=== PATIENT | female | born 1945 | race African-American/Black ===

== ENCOUNTER 2020-10-08 08:23 | Outpatient (REF) | payer MEDICARE, SELFPAY ==
[2020-10-08 09:42] LABS: MANUAL DIFF FLAG NO
[2020-10-08 09:50] LABS: Basophils Percent Auto 0.2 % (0-2); Eosinophils Absolute Auto 0.1 X10*3/uL (0.0-0.4); Eosinophils Percent Auto 3.3 % (0-4); Hematocrit 39.8 % (37-47); Hemoglobin 12.7 g/dl (12.0-16.0); Imm Gran Abs Auto 0.01 X10*3/uL (0.00-0.03); Imm Gran Pct Auto 0.2 % (0.0-0.4); Lymphocytes Absolute Auto 1.9 X10*3/uL (1.2-4.9); Lymphocytes Percent Auto 45.5 % (20-40); Mean Corpuscular HGB Conc 31.9 g/dl (31.0-35.0); Mean Corpuscular Hemoglobin 27.4 pg (27.0-33.0); Mean Corpuscular Volume 85.8 fL (80-98); Mean Platelet Volume 11.1 fL (9.4-12.3); Monocytes Absolute Auto 0.5 X10*3/uL (0.1-1.2); Monocytes Percent Auto 10.8 % (2-11); Neutrophils Absolute Auto 1.7 X10*3/uL (2.0-8.3); Platelet Count 236 X10*3/uL (160-400); Red Blood Count 4.64 X10*6/uL (4.20-5.50); White Blood Count 4.2 X10*3/uL (4.8-10.8)
[2020-10-08 10:12] LABS: Alanine Aminotransferase 20 U/L (0-31); Alkaline Phosphatase 146 U/L (39-117); Anion Gap 11 (12-20); Aspartate Amino Transferase 24 U/L (5-31); Bilirubin Total 0.4 mg/dL (0.0-1.0); Blood Urea Nitrogen 20 mg/dL (9-16); Calcium 9.5 mg/dL (8.4-10.2); Carbon Dioxide 32 mmol/L (22-29); Chloride 105 mmol/L (96-108); Cholesterol 217 mg/dL; Estimated Glomerular Filt Rate > 60; Glucose Fasting 85 mg/dL (60-99); HDL Cholesterol 56 mg/dL; LDL Cholesterol Calculated 139 mg/dl; Potassium 3.9 mmol/L (3.3-5.1); Sodium 144 mmol/L (135-145); Total Protein 6.9 g/dL (6.5-8.0); Triglycerides 110 mg/dL
== END 2020-10-08 08:24 | disposition home or self-care (01) ==
LOC: HO.LAB 08:23
PROVIDERS: PCP Internal Medicine; Visit Provider Internal Medicine
DX: Z00.00 Encounter for general adult medical examination without abnormal findings (principal); E11.9 Type 2 diabetes mellitus without complications; E03.9 Hypothyroidism, unspecified
CPT/HCPCS: 36415; 80053; 80061; 84443; 85025

== ENCOUNTER 2020-11-18 11:03 | Outpatient (REF) | payer MEDICARE, SELFPAY ==
--- NOTE | ~2020-11-18 | MM_ITS ---
EXAMINATION: MM SCREENING DIGITAL BREAST TOMOSYNTHESIS, BILATERAL CLINICAL INFORMATION: Screening. Asymptomatic. The lifetime risk of breast cancer based on the Tyrer-Cuzick Model is under 3%. COMPARISON: Mammography: 11/04/2017, 10/31/2016, 07/31/2013 TECHNIQUE: Digital breast tomosynthesis is performed in both the craniocaudal and mediolateral oblique views along with computer-aided detection (CAD). Synthesized 2D images are generated from the tomosynthesis. FINDINGS: There are scattered areas of fibroglandular density (ACR BI-RADS breast composition Category b). There are no significant masses, abnormal calcifications, or other abnormalities. Parenchymal pattern is similar to prior studies. No significant changes. MM/MM tomosynthesis screening BI IMPRESSION: No mammographic evidence of malignancy. ASSESSMENT: BI-RADS 1: Negative RECOMMENDATION: Routine annual mammography screening. This patient's information was entered into a reminder system with a target due date for their next mammogram.
== END 2020-11-18 11:04 | disposition home or self-care (01) ==
LOC: HO.MAMMO 11:03
PROVIDERS: PCP Internal Medicine; Visit Provider Internal Medicine
DX: Z12.31 Encounter for screening mammogram for malignant neoplasm of breast (principal)
CPT/HCPCS: 77063; 77067

== ENCOUNTER 2021-07-14 08:27 | Outpatient (REF) | payer MEDICARE, SELFPAY ==
[2021-07-14 08:37] LABS: MANUAL DIFF FLAG NO
[2021-07-14 08:57] LABS: Basophils Percent Auto 0.2 % (0-2); Eosinophils Absolute Auto 0.1 X10*3/uL (0.0-0.4); Eosinophils Percent Auto 3.2 % (0-4); Hematocrit 41.5 % (37.0-47.0); Hemoglobin 13.1 g/dl (12.0-16.0); Imm Gran Abs Auto 0.01 X10*3/uL (0.00-0.03); Imm Gran Pct Auto 0.2 % (0.0-0.4); Lymphocytes Absolute Auto 1.8 X10*3/uL (1.2-4.9); Lymphocytes Percent Auto 43.7 % (20-40); Mean Corpuscular HGB Conc 31.6 g/dl (31.0-35.0); Mean Corpuscular Hemoglobin 27.2 pg (27.0-33.0); Mean Corpuscular Volume 86.3 fL (80.0-98.0); Mean Platelet Volume 9.6 fL (9.4-12.3); Monocytes Absolute Auto 0.4 X10*3/uL (0.1-1.2); Monocytes Percent Auto 9.2 % (2-11); Neutrophils Absolute Auto 1.8 x10*3/uL (2.0-8.3); Neutrophils Percent Auto 43.5 % (45-73); Platelet Count 253 X10*3/uL (160-400); Red Blood Count 4.81 X10*6/uL (4.20-5.50); Red Cell Distribution Width 14.2 % (11.0-16.0); White Blood Count 4.1 X10*3/uL (4.8-10.8)
[2021-07-14 09:15] LABS: Alanine Aminotransferase 22 U/L (0-31); Albumin Level 4.1 g/dL (3.5-5.0); Alkaline Phosphatase 161 U/L (39-117); Anion Gap 12 (12-20); Aspartate Amino Transferase 26 U/L (5-31); Bilirubin Total 0.5 mg/dL (0.0-1.0); Blood Urea Nitrogen 16 mg/dL (9-16); Calcium 9.9 mg/dL (8.4-10.2); Carbon Dioxide 32 mmol/L (22-29); Chloride 103 mmol/L (96-108); Cholesterol 225 mg/dL; Estimated Glomerular Filt Rate > 60; Glucose Fasting 95 mg/dL (60-99); HDL Cholesterol 53 mg/dL; LDL Cholesterol Calculated 147 mg/dl; Potassium 3.8 mmol/L (3.3-5.1); Sodium 143 mmol/L (135-145); Total Protein 7.4 g/dL (6.5-8.0); Triglycerides 127 mg/dL
[2021-07-14 09:36] LABS: Thyroid Stimulating Hormone 1.17 uIU/mL (0.32-4.0)
== END 2021-07-14 08:28 | disposition home or self-care (01) ==
LOC: HO.LAB 08:27
PROVIDERS: PCP Internal Medicine; Visit Provider Internal Medicine
DX: Z00.00 Encounter for general adult medical examination without abnormal findings (principal); Z13.0 Encounter for screening for diseases of the blood and blood-forming organs and certain disorders involving the immune mechanism; E78.5 Hyperlipidemia, unspecified
CPT/HCPCS: 36415; 80053; 80061; 84443; 85025

== ENCOUNTER 2021-08-03 14:05 | Outpatient (REF) | payer MEDICARE, SELFPAY ==
--- NOTE | ~2021-08-03 | XR_ITS ---
EXAMINATION: XR CHEST CLINICAL INFORMATION: Syncope and collapse. COMPARISON: None TECHNIQUE: 2 views of the chest were obtained. FINDINGS: The lungs are well-expanded and clear. The heart size is normal. There is slight prominence of parahilar markings but no congestion seen. There is no pleural effusion. Mild degenerative changes bilateral shoulder joints are noted with periarticular spurring but no acute fracture. XR/XR chest 2V IMPRESSION: No acute cardiopulmonary process seen. Mild degenerative changes in bilateral hip joints.
--- NOTE | 2021-08-03 14:40 | ECG_ITS ---
Test Reason : Z13.9 Blood Pressure : / mmHG Vent. Rate : 065 BPM Atrial Rate : 065 BPM P-R Int : 178 ms QRS Dur : 084 ms QT Int : 424 ms P-R-T Axes : 062 013 055 degrees QTc Int : 440 ms Normal sinus rhythm Possible Left atrial enlargement Left ventricular hypertrophy ( R in aVL , Sokolow-Iverson ) Nonspecific T wave abnormality Abnormal ECG When compared with ECG of 13-JAN-2009 22:47, No significant change was found Referred By: Nadir Pan Electronically Signed By:Pilo Jett
[2021-08-03 14:51] LABS: MANUAL DIFF FLAG NO
[2021-08-03 14:57] LABS: Basophils Percent Auto 0.1 % (0-2); Eosinophils Absolute Auto 0.1 X10*3/uL (0.0-0.4); Eosinophils Percent Auto 1.3 % (0-4); Hematocrit 39.6 % (37.0-47.0); Hemoglobin 12.5 g/dl (12.0-16.0); Imm Gran Abs Auto 0.02 X10*3/uL (0.00-0.03); Imm Gran Pct Auto 0.3 % (0.0-0.4); Lymphocytes Absolute Auto 2.1 X10*3/uL (1.2-4.9); Lymphocytes Percent Auto 31.1 % (20-40); Mean Corpuscular HGB Conc 31.6 g/dl (31.0-35.0); Mean Corpuscular Hemoglobin 27.5 pg (27.0-33.0); Mean Platelet Volume 9.8 fL (9.4-12.3); Monocytes Absolute Auto 0.5 X10*3/uL (0.1-1.2); Monocytes Percent Auto 6.9 % (2-11); Neutrophils Absolute Auto 4.1 x10*3/uL (2.0-8.3); Neutrophils Percent Auto 60.3 % (45-73); Platelet Count 225 X10*3/uL (160-400); Red Blood Count 4.55 X10*6/uL (4.20-5.50); Red Cell Distribution Width 14.4 % (11.0-16.0); White Blood Count 6.8 X10*3/uL (4.8-10.8)
[2021-08-03 15:23] LABS: Alanine Aminotransferase 24 U/L (0-31); Albumin Level 4.2 g/dL (3.5-5.0); Alkaline Phosphatase 147 U/L (39-117); Anion Gap 11 (12-20); Aspartate Amino Transferase 25 U/L (5-31); Bilirubin Total 0.3 mg/dL (0.0-1.0); Blood Urea Nitrogen 31 mg/dL (9-16); Calcium 9.2 mg/dL (8.4-10.2); Carbon Dioxide 31 mmol/L (22-29); Chloride 102 mmol/L (96-108); Cholesterol 222 mg/dL; Estimated Glomerular Filt Rate 42; Glucose Fasting 94 mg/dL (60-99); HDL Cholesterol 51 mg/dL; LDL Cholesterol Calculated 137 mg/dl; Potassium 4.2 mmol/L (3.3-5.1); Sodium 140 mmol/L (135-145); Total Protein 7.2 g/dL (6.5-8.0); Triglycerides 170 mg/dL
[2021-08-03 15:43] LABS: Thyroid Stimulating Hormone 0.72 uIU/mL (0.32-4.0)
== END 2021-08-03 14:06 | disposition home or self-care (01) ==
LOC: HO.XRAY 14:05
PROVIDERS: PCP Internal Medicine; Visit Provider Internal Medicine
DX: Z00.00 Encounter for general adult medical examination without abnormal findings (principal); Z13.9 Encounter for screening, unspecified; R55 Syncope and collapse; E11.9 Type 2 diabetes mellitus without complications; R94.31 Abnormal electrocardiogram [ECG] [EKG]
CPT/HCPCS: 36415; 71046; 80053; 80061; 84443; 85025; 93005

== ENCOUNTER 2021-11-22 08:38 | Outpatient (REF) | payer MEDICARE, SELFPAY ==
--- NOTE | ~2021-11-22 | MM_ITS ---
EXAMINATION: MM SCREENING DIGITAL BREAST TOMOSYNTHESIS, BILATERAL CLINICAL INFORMATION: Screening. Asymptomatic. The lifetime risk of breast cancer based on the Tyrer-Cuzick Model is 3%. COMPARISON: Mammography: 11/18/2020, 11/04/2017, 10/31/2016 TECHNIQUE: Digital breast tomosynthesis is performed in both the craniocaudal and mediolateral oblique views along with computer-aided detection (CAD). Synthesized 2D images are generated from the tomosynthesis. FINDINGS: There are scattered areas of fibroglandular density (ACR BI-RADS breast composition Category b). There are no significant masses, abnormal calcifications, or other abnormalities. Parenchymal pattern is similar to prior studies. There is no developing density or architectural abnormality. The axilla and skin contours are unremarkable. No significant changes. MM/MM tomosynthesis screening BI IMPRESSION: No mammographic evidence of malignancy. ASSESSMENT: BI-RADS 1: Negative RECOMMENDATION: Routine annual mammography screening. This patient's information was entered into a reminder system with a target due date for their next mammogram.
== END 2021-11-22 08:39 | disposition home or self-care (01) ==
LOC: HO.MAMMO 08:38
PROVIDERS: PCP Internal Medicine; Visit Provider Internal Medicine
DX: Z12.31 Encounter for screening mammogram for malignant neoplasm of breast (principal)
CPT/HCPCS: 77063; 77067

== ENCOUNTER 2021-12-27 09:00 | Outpatient (RCR) | payer MEDICARE, SELFPAY | END 2022-02-15 10:50 | disposition home or self-care (01) | LOC: HO.PT 09:00 | PROVIDERS: PCP Internal Medicine; Visit Provider Orthopaedic Surgery | DX: M16.11 Unilateral primary osteoarthritis, right hip (principal) | CPT/HCPCS: 97110; 97116; 97162 ==

== ENCOUNTER 2022-04-06 09:00 | Outpatient (RCR) | payer MEDICARE, SELFPAY | END 2022-04-06 10:11 | disposition home or self-care (01) | LOC: HO.PT 09:00 | PROVIDERS: PCP Internal Medicine; Visit Provider Orthopaedic Surgery | DX: Z96.651 Presence of right artificial knee joint (principal) | CPT/HCPCS: 97110; 97112; 97116; 97140; 97162; 97530; 97535 ==

== ENCOUNTER 2022-08-18 08:09 | Outpatient (REF) | payer MEDICARE, SELFPAY ==
[2022-08-18 08:28] LABS: MANUAL DIFF FLAG NO
[2022-08-18 08:35] LABS: Basophils Percent Auto 0.2 % (0-2); Eosinophils Absolute Auto 0.1 X10*3/uL (0.0-0.4); Eosinophils Percent Auto 2.7 % (0-4); Hematocrit 39.8 % (37.0-47.0); Hemoglobin 12.8 g/dl (12.0-16.0); Imm Gran Abs Auto 0.01 X10*3/uL (0.00-0.03); Imm Gran Pct Auto 0.2 % (0.0-0.4); Lymphocytes Absolute Auto 2.3 X10*3/uL (1.2-4.9); Lymphocytes Percent Auto 47.5 % (20-40); Mean Corpuscular HGB Conc 32.2 g/dl (31.0-35.0); Mean Corpuscular Hemoglobin 26.8 pg (27.0-33.0); Mean Corpuscular Volume 83.4 fL (80.0-98.0); Monocytes Absolute Auto 0.4 X10*3/uL (0.1-1.2); Monocytes Percent Auto 7.9 % (2-11); Neutrophils Percent Auto 41.5 % (45-73); Platelet Count 232 X10*3/uL (160-400); Red Blood Count 4.77 X10*6/uL (4.20-5.50); Red Cell Distribution Width 14.3 % (11.0-16.0); White Blood Count 4.8 X10*3/uL (4.8-10.8)
[2022-08-18 09:58] LABS: Alanine Aminotransferase 15 U/L (0-31); Albumin Level 3.9 g/dL (3.5-5.0); Alkaline Phosphatase 161 U/L (39-117); Anion Gap 14 (12-20); Aspartate Amino Transferase 22 U/L (5-31); Bilirubin Total 0.5 mg/dL (0.0-1.0); Blood Urea Nitrogen 16 mg/dL (9-16); Calcium 9.9 mg/dL (8.4-10.2); Carbon Dioxide 29 mmol/L (22-29); Chloride 104 mmol/L (96-108); Cholesterol 235 mg/dL; Estimated Glomerular Filt Rate > 60; Glucose Fasting 89 mg/dL (60-99); HDL Cholesterol 56 mg/dL; LDL Cholesterol Calculated 159 mg/dl; Potassium 3.7 mmol/L (3.3-5.1); Sodium 143 mmol/L (135-145); Total Protein 7.2 g/dL (6.5-8.0); Triglycerides 100 mg/dL
[2022-08-18 10:14] LABS: Thyroid Stimulating Hormone 1.26 uIU/mL (0.32-4.0)
== END 2022-08-18 08:10 | disposition home or self-care (01) ==
LOC: HO.LAB 08:09
PROVIDERS: PCP Internal Medicine; Visit Provider Internal Medicine
DX: E03.9 Hypothyroidism, unspecified (principal); D64.9 Anemia, unspecified; N28.9 Disorder of kidney and ureter, unspecified; E78.5 Hyperlipidemia, unspecified
CPT/HCPCS: 36415; 80053; 80061; 84443; 85025

== ENCOUNTER 2022-12-14 07:39 | Outpatient (REF) | payer MEDICARE, SELFPAY | END 2022-12-14 07:40 | disposition home or self-care (01) | LOC: HO.MAMMO 07:39 | PROVIDERS: PCP Internal Medicine; Visit Provider Internal Medicine | DX: Z12.31 Encounter for screening mammogram for malignant neoplasm of breast (principal) | CPT/HCPCS: 77063; 77067 ==

== ENCOUNTER → 2022-12-14 07:45 | Outpatient (BNV) | payer MEDICARE, SELFPAY | PROVIDERS: PCP Internal Medicine; Visit Provider Radiology Diagnostic Radiology | DX: Z12.31 Encounter for screening mammogram for malignant neoplasm of breast (principal) | CPT/HCPCS: 77063; 77067 ==

== ENCOUNTER 2022-12-14 08:24 | Outpatient (AMB) | payer MEDICARE, SELFPAY ==
--- NOTE | 2022-12-14 08:32 | A.OFFPC_ITS ---
Vital Signs 12/14/22 08:34 Height 5 ft 7 in Weight 223 lb 4 oz BMI 35.0 BP 130/80 Blood Pressure Location Lt brachial Position Sitting Pulse 53 Pulse Source Pulse Oximeter Pulse Oximetry (%) 98 Oxygen Delivery Method Room Air Intake Visit Reasons: 3mth f/u Intake Note: Patient is here to follow up on HTN. 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 Accompanied by: Self / Same As Patient Allergies No Known Allergies Allergy (Verified 12/14/22 08:33) Medication List - Last Reconciled 12/14/22 by Nadir Pan MD acetaminophen-codeine 300-30 mg 1 - 2 tabs PO Q8H PRN allopurinol 300 mg PO DAILY ciclopirox 0.77% 1 appl topical ONCE diltiazem HCl 180 mg PO DAILY hydrochlorothiazide 25 mg PO DAILY 90 days hydroxyzine pamoate 25 mg PO QID PRN lovastatin 40 mg PO DAILY Tobacco use date assessed: 12/14/22 Fall risk assessment: No Falls in past year Last assessed Fall Risk: 12/14/22 Dental Screening Dental Screen Date: 12/14/22 Did you have a dental visit in the last 12 months?: Yes Did you have a dental problem in the last 6 months where you did not have access to dental care?: No Was dental information given to patient?: Patient has dentist HPI 3mth f/u HPI Details HTN hyperlip and gout on rx; doing well; [facility] Medical History (Updated 08/26/22 @ 08:51 by Nadir Pan MD) Rash Hyperlipidemia Obesity Hypertension Annual physical exam Surgical History (Updated 12/14/22 @ 08:37 by ADRIAN Patino) History of right hip replacement History of arthroplasty of left hip History of rectal polypectomy History of arthroplasty of right knee History of hysterectomy History of appendectomy Family History Father No problems noted. Mother No problems noted. Social History Housing: House Alcohol intake: never Patient Tobacco Use Status: Never used Tobacco e-Cigarette/Vaping Use: Never Used Second Hand Smoke Exposure: No service: No Current occupational status: retired Cognitive needs: No Hearing needs: No Vision needs: No Questionnaire Thrive Questionnaire Date Thrive assessed: 05/27/22 ROS-7 AMB Questionnaire ROS-7 Date ROS - 7 assessed: 05/27/22 Source: Developed by Drs. jT Arias, Gabriella aFn, Ronni Santana and colleagues, with an educational ana from [employer]. Review of Systems Const Denies chills, Denies headache(s) and Denies weight loss ENT Denies headache(s) Card Denies chest pain, Denies syncope, Denies irregular heart rhythm and Denies dyspnea Resp Denies chest congestion, Denies cough and Denies dyspnea GI Denies abdominal pain, Denies change in stool character, Denies nausea and Denies vomiting Musc Denies deformity and Denies joint swelling Neuro Denies syncope and Denies headache(s) Physical exam (Primary Care) Vital Signs: Last Vital Signs Pulse 53 12/14/22 08:34 BP 130/80 12/14/22 08:34 Pulse Ox 98 12/14/22 08:34 Oxygen Delivery Method Room Air 12/14/22 08:34 BMI result Body Mass Index 35.0 Tobacco/Smoking Status: Tobacco use Status Tobacco use date assessed 12/14/22 12/14/22 08:38 Patient Tobacco Use Status Never used Tobacco 12/14/22 08:38 e-Cigarette/Vaping Use Never Used 12/14/22 08:38 Thrive Assessment: Date of Thrive Assessment Date Thrive assessed 05/27/22 12/14/22 08:38 Const General: cooperative, comfortable, no acute distress and alert Neck Neck: Yes no lymphadenopathy Thyroid: Thyroid normal Resp Effort & Inspection: normal respiratory effort Auscultation: clear to auscultation bilaterally Percussion: percussion normal Cardio Jugular venous distension: no JVD Palpation: normal PMI Rate: regular rate Rhythm: regular rhythm Heart sounds: S1 normal heart sound present and S2 normal heart sound present GI Inspection: Yes normal to inspection Palpation (GI): No hepatosplenomegaly present Skin General skin exam: no rashes or lesions noted Extrem General: Yes no clubbing, cyanosis or edema Assessment and Plan Assessment & Plan (1) Gout: Code(s): M10.9 - Gout, unspecified Plan: stable; same rx (2) Hyperlipidemia: Code(s): E78.5 - Hyperlipidemia, unspecified Plan: stable ;same rx (3) Hypertension: Code(s): I10 - Essential (primary) hypertension Plan: stable same rx Coding Level of Care Code Est Pt Level 4 (39449) Diagnoses Gout M10.9 Hyperlipidemia E78.5 Hypertension I10
[2022-12-14 08:34] VITALS: BP 130/80; PULSE 53; O2SAT 98; BMI 35.0
== END 2022-12-14 08:50 | disposition home or self-care (01) ==
PROVIDERS: PCP Internal Medicine; Visit Provider Internal Medicine
DX: M10.9 Gout, unspecified (principal); E78.5 Hyperlipidemia, unspecified; I10 Essential (primary) hypertension
CPT/HCPCS: 99214

== ENCOUNTER 2023-03-17 07:36 | Outpatient (REF) | payer MEDICARE, SELFPAY ==
[2023-03-17 08:52] LABS: Cholesterol 202 mg/dL (<200); HDL Cholesterol 53 mg/dL (>40); LDL Cholesterol Calculated 127 mg/dL (<100); Triglycerides 114 mg/dL (<150)
== END 2023-03-17 07:37 | disposition home or self-care (01) ==
LOC: HO.LAB 07:36
PROVIDERS: PCP Internal Medicine; Visit Provider Internal Medicine
DX: E78.5 Hyperlipidemia, unspecified (principal)
CPT/HCPCS: 36415; 80061

== ENCOUNTER 2023-03-20 08:17 | Outpatient (AMB) | payer MEDICARE, SELFPAY ==
[2023-03-20 08:35] VITALS: BP 138/60; PULSE 65; O2SAT 98; BMI 36.0
--- NOTE | 2023-03-20 08:35 | A.OFFPC_ITS ---
Vital Signs 03/20/23 08:35 Height 5 ft 7 in Weight 230 lb BMI 36.0 BP 138/60 Blood Pressure Location Lt brachial Position Sitting Pulse 65 Pulse Source Pulse Oximeter Pulse Oximetry (%) 98 Oxygen Delivery Method Room Air Intake Visit Reasons: 3mth f/u Allergies No Known Allergies Allergy (Verified 12/14/22 08:33) Tobacco use date assessed: 12/14/22 HPI 3mth f/u HPI Details HTN on Rx; doing well; compliant [facility] Medical History (Updated 08/26/22 @ 08:51 by Nadir Pan MD) Rash Hyperlipidemia Obesity Hypertension Annual physical exam Surgical History History of right hip replacement History of arthroplasty of left hip History of rectal polypectomy History of arthroplasty of right knee History of hysterectomy History of appendectomy Family History Father No problems noted. Mother No problems noted. Social History Housing: House Alcohol intake: never Patient Tobacco Use Status: Never used Tobacco e-Cigarette/Vaping Use: Never Used Second Hand Smoke Exposure: No service: No Current occupational status: retired Cognitive needs: No Hearing needs: No Vision needs: No Questionnaire PHQ-9 Over the last 2 weeks, how often have you been bothered by any of the following problems? 1. Little interest or pleasure in doing things: not at all 2. Feeling down, depressed, or hopeless: not at all 3. Trouble falling or staying asleep, or sleeping too much: not at all 4. Feeling tired or having little energy: not at all 5. Poor appetite or overeating: not at all 6. Feeling bad about yourself - or that you are a failure or have let yourself or your family down: not at all 7. Trouble concentrating on things, such as reading the newspaper or watching television: not at all 8. Moving or speaking so slowly that other people could have noticed. Or the opposite - being so fidgety or restless that you have been moving around a lot more than usual: not at all 9. Thoughts that you would be better off or of hurting yourself in some way: not at all Total score: 0 Depression Screening Interpretation: Negative Depression Screening Done: Yes 16414 - PHQ-9 Billing: Yes Source: Developed by Gabriella Clarke Kurt Kroenke and colleagues, with an educational ana from [employer]. Thrive Questionnaire Date Thrive assessed: 03/20/23 I am a: Patient What is your living situation today?: I have a steady place to live Within the past 12 months, did the food you bought not last and you didn't have the money to get more?: Never true Within the past 12 months, did you worry whether your food would run out before you got money to buy more?: Never true Do you have trouble paying for medicines?: No Do you have trouble getting transportation to medical appointments?: No Do you have trouble paying your heating and electricity bill?: No Do you have trouble taking care of your child, family member or friend?: No Do you have trouble with day-to-day activities such as bathing, preparing meals, shopping, managing finances, etc.?: No Are you currently unemployed and looking for a job?: No Are you interested in more education?: No Please select the resources that you would like help with: None THRIVE Score: 0 AUDIT C Alcohol Use Questionnaire (AUDIT-C) 1. How often do you have a drink containing alcohol?: Never Total Score: 0 Score Reviewed/Action Taken: Yes ROS-7 AMB Questionnaire ROS-7 Date ROS - 7 assessed: 03/20/23 Feeling nervous, anxious, or on edge: 0 = Not at all Not being able to stop or control worryin = Not at all Worrying too much about different things: 0 = Not at all Trouble relaxin = Not at all Being so restless that it is hard to sit still: 0 = Not at all Becoming easily annoyed or irritable: 0 = Not at all Feeling afraid as if something awful might happen: 0 = Not at all Total ROS-7 score (0-4 normal; 5-9 mild; 10-14 moderate; 15-21 severe): 0 Source: Developed by Gabriella Clarke Kurt Kroenke and colleagues, with an educational ana from [employer]. Review of Systems Const Denies chills, Denies headache(s) and Denies weight loss ENT Denies headache(s) Card Denies chest pain, Denies syncope, Denies irregular heart rhythm and Denies dyspnea Resp Denies chest congestion, Denies cough and Denies dyspnea GI Denies abdominal pain, Denies change in stool character, Denies nausea and Denies vomiting Musc Denies deformity and Denies joint swelling Neuro Denies syncope and Denies headache(s) Physical exam (Primary Care) Vital Signs: Last Vital Signs Pulse 65 03/20/23 08:35 BP 138/60 03/20/23 08:35 Pulse Ox 98 03/20/23 08:35 Oxygen Delivery Method Room Air 03/20/23 08:35 BMI result Body Mass Index 36.0 Tobacco/Smoking Status: Tobacco use Status Tobacco use date assessed 12/14/22 03/20/23 08:35 Patient Tobacco Use Status Never used Tobacco 03/20/23 08:35 e-Cigarette/Vaping Use Never Used 03/20/23 08:35 PHQ-9: PHQ-9 Score PHQ-9: Total score 0 03/20/23 08:41 Depression Screening Interpretation: Negative Thrive Assessment: Date of Thrive Assessment Date Thrive assessed 03/20/23 03/20/23 08:41 Const General: cooperative, comfortable, no acute distress and alert Neck Neck: Yes no lymphadenopathy Thyroid: Thyroid normal Resp Effort & Inspection: normal respiratory effort Auscultation: clear to auscultation bilaterally Percussion: percussion normal Cardio Jugular venous distension: no JVD Palpation: normal PMI Rate: regular rate Rhythm: regular rhythm Heart sounds: S1 normal heart sound present and S2 normal heart sound present GI Inspection: Yes normal to inspection Palpation (GI): No hepatosplenomegaly present Skin General skin exam: no rashes or lesions noted Extrem General: Yes no clubbing, cyanosis or edema Assessment and Plan Assessment & Plan (1) Hypertension: Code(s): I10 - Essential (primary) hypertension Plan: stable; same rx Coding Level of Care Code Est Pt Level 3 (63216) Diagnoses Hypertension I10
== END 2023-03-20 08:49 | disposition home or self-care (01) ==
PROVIDERS: PCP Internal Medicine; Visit Provider Internal Medicine
DX: I10 Essential (primary) hypertension (principal)
CPT/HCPCS: 99213

== ENCOUNTER 2023-06-21 08:44 | Outpatient (AMB) | payer MEDICARE, SELFPAY ==
[2023-06-21 08:48] VITALS: BP 136/72; PULSE 73; O2SAT 98; BMI 36.5
--- NOTE | 2023-06-21 08:48 | MHC.PC.OV ---
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: Not Required per policy Accompanied by: Self / Same As Patient Allergies No Known Allergies Allergy (Verified 06/21/23 08:48) Medication List - Last Reconciled 06/21/23 by Nadir Pan MD acetaminophen-codeine 300-30 mg 1 - 2 tabs PO Q8H PRN allopurinol 300 mg PO DAILY ciclopirox 0.77% 1 appl topical ONCE diltiazem HCl CD 180 mg PO DAILY hydrochlorothiazide 25 mg PO DAILY 90 days hydroxyzine pamoate 25 mg PO QID PRN lovastatin 40 mg PO DAILY Tobacco use date assessed: 06/21/23 Fall risk assessment: No Falls in past year Last assessed Fall Risk: 06/21/23 Dental Screening Dental Screen Date: 06/21/23 Did you have a dental visit in the last 12 months?: Yes Did you have a dental problem in the last 6 months where you did not have access to dental care?: No Was dental information given to patient?: Patient has dentist HPI 3mth f/u HPI Details HTN hyperlip and gout; stable on rx PFSH Medical History (Updated 08/26/22 @ 08:51 by Nadir Pan MD) Rash Hyperlipidemia Obesity Hypertension Annual physical exam Surgical History History of right hip replacement History of arthroplasty of left hip History of rectal polypectomy History of arthroplasty of right knee History of hysterectomy History of appendectomy Family History Father No problems noted. Mother No problems noted. Social History Housing: House Alcohol intake: never Patient Tobacco Use Status: Never used Tobacco e-Cigarette/Vaping Use: Never Used Second Hand Smoke Exposure: No service: No Current occupational status: retired Cognitive needs: No Hearing needs: No Vision needs: No Questionnaire Thrive Questionnaire Date Thrive assessed: 03/20/23 ROS-7 AMB Questionnaire ROS-7 Date ROS - 7 assessed: 03/20/23 Source: Developed by Drs. Tj Arias, Gabriella Fan, Ronni Santana and colleagues, with an educational ana from [employer]. Review of Systems Const Denies chills, Denies headache(s) and Denies weight loss ENT Denies headache(s) Card Denies chest pain, Denies syncope, Denies irregular heart rhythm and Denies dyspnea Resp Denies chest congestion, Denies cough and Denies dyspnea GI Denies abdominal pain, Denies change in stool character, Denies nausea and Denies vomiting Musc Denies deformity and Denies joint swelling Neuro Denies syncope and Denies headache(s) Physical exam (Primary Care) Vital Signs: Last Vital Signs Pulse 73 06/21/23 08:48 BP 136/72 06/21/23 08:48 Pulse Ox 98 06/21/23 08:48 Oxygen Delivery Method Room Air 06/21/23 08:48 BMI result Body Mass Index 36.5 Tobacco/Smoking Status: Tobacco use Status Tobacco use date assessed 06/21/23 06/21/23 08:49 Patient Tobacco Use Status Never used Tobacco 06/21/23 08:49 e-Cigarette/Vaping Use Never Used 06/21/23 08:49 Thrive Assessment: Date of Thrive Assessment Date Thrive assessed 03/20/23 06/21/23 08:49 Const General: cooperative, comfortable, no acute distress and alert Neck Neck: Yes no lymphadenopathy Thyroid: Thyroid normal Resp Effort & Inspection: normal respiratory effort Auscultation: clear to auscultation bilaterally Percussion: percussion normal Cardio Jugular venous distension: no JVD Palpation: normal PMI Rate: regular rate Rhythm: regular rhythm Heart sounds: S1 normal heart sound present and S2 normal heart sound present GI Inspection: Yes normal to inspection Palpation (GI): No hepatosplenomegaly present Skin General skin exam: no rashes or lesions noted Extrem General: Yes no clubbing, cyanosis or edema Assessment and Plan Assessment & Plan (1) Gout: Code(s): M10.9 - Gout, unspecified Plan: stable; same rx (2) Hyperlipidemia: Code(s): E78.5 - Hyperlipidemia, unspecified Plan: stable; sme rx (3) Hypertension: Code(s): I10 - Essential (primary) hypertension Plan: stable; same rx Orders: Orders Lipid Panel Today Z13.220 - Encounter for screening for lipoid disorders Thyroid Stimulating Hormone Today Z13.29 - Encounter for screening for other suspected endocrine disorder Medications: Refilled hydrochlorothiazide 25 mg PO DAILY 90 tabs 4RF 90 days Coding Level of Care Code Est Pt Level 4 (19316) Diagnoses Gout M10.9 Hyperlipidemia E78.5 Hypertension I10
== END 2023-06-21 09:16 | disposition home or self-care (01) ==
PROVIDERS: PCP Internal Medicine; Visit Provider Internal Medicine
DX: M10.9 Gout, unspecified (principal); E78.5 Hyperlipidemia, unspecified; I10 Essential (primary) hypertension
CPT/HCPCS: 99214

== ENCOUNTER 2023-09-22 14:07 | Outpatient (AMB) | payer MEDICARE, SELFPAY ==
--- NOTE | 2023-09-22 14:13 | A.OFFPC_ITS ---
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 Allergies No Known Allergies Allergy (Verified 09/22/23 14:13) Medication List - Last Reconciled 09/25/23 by Nadir Pan MD acetaminophen-codeine 300-30 mg 1 - 2 tabs PO Q8H PRN allopurinol 300 mg PO DAILY ciclopirox 0.77% 1 appl topical ONCE diltiazem HCl CD 180 mg PO DAILY hydrochlorothiazide 25 mg PO DAILY 90 days hydroxyzine pamoate 25 mg PO QID PRN lovastatin 40 mg PO DAILY Tobacco use date assessed: 06/21/23 Fall risk assessment: No Falls in past year Last assessed Fall Risk: 09/22/23 Dental Screening Dental Screen Date: 06/21/23 HPI 3 month f/u HPI Details HTN on Rx; doing well and compliant [facility] Medical History (Updated 08/26/22 @ 08:51 by Nadir Pan MD) Rash Hyperlipidemia Obesity Hypertension Annual physical exam Surgical History History of right hip replacement History of arthroplasty of left hip History of rectal polypectomy History of arthroplasty of right knee History of hysterectomy History of appendectomy Family History Father No problems noted. Mother No problems noted. Social History Housing: House Alcohol intake: never Patient Tobacco Use Status: Never used Tobacco e-Cigarette/Vaping Use: Never Used Second Hand Smoke Exposure: No service: No Current occupational status: retired Cognitive needs: No Hearing needs: No Vision needs: No Questionnaire Thrive Questionnaire Date Thrive assessed: 03/20/23 AUDIT C Alcohol Use Questionnaire (AUDIT-C) 1. How often do you have a drink containing alcohol?: Never 3. How often do you have six or more drinks on one occasion?: Never Total Score: 0 Score Reviewed/Action Taken: Yes ROS-7 AMB Questionnaire ROS-7 Date ROS - 7 assessed: 03/20/23 Source: Developed by Drs. Tj Arias, Gabriella Fan, Ronni Santana and colleagues, with an educational ana from [employer] Review of Systems Const Denies chills, Denies headache(s) and Denies weight loss ENT Denies headache(s) Card Denies chest pain, Denies syncope, Denies irregular heart rhythm and Denies dyspnea Resp Denies chest congestion, Denies cough and Denies dyspnea GI Denies abdominal pain, Denies change in stool character, Denies nausea and Denies vomiting Musc Denies deformity and Denies joint swelling Neuro Denies syncope and Denies headache(s) Physical exam (Primary Care) Vital Signs: Last Vital Signs Pulse 70 09/22/23 14:14 BP 132/68 09/22/23 14:14 Pulse Ox 98 09/22/23 14:14 Oxygen Delivery Method Room Air 09/22/23 14:14 BMI result Body Mass Index 37.0 Tobacco/Smoking Status: Tobacco use Status Tobacco use date assessed 06/21/23 09/22/23 14:18 Patient Tobacco Use Status Never used Tobacco 09/22/23 14:18 e-Cigarette/Vaping Use Never Used 09/22/23 14:18 Thrive Assessment: Date of Thrive Assessment Date Thrive assessed 03/20/23 09/22/23 14:18 Const General: cooperative, comfortable, no acute distress and alert Neck Neck: Yes no lymphadenopathy Thyroid: Thyroid normal Resp Effort & Inspection: normal respiratory effort Auscultation: clear to auscultation bilaterally Percussion: percussion normal Cardio Jugular venous distension: no JVD Palpation: normal PMI Rate: regular rate Rhythm: regular rhythm Heart sounds: S1 normal heart sound present and S2 normal heart sound present GI Inspection: Yes normal to inspection Palpation (GI): No hepatosplenomegaly present Skin General skin exam: no rashes or lesions noted Extrem General: Yes no clubbing, cyanosis or edema Assessment and Plan Assessment & Plan (1) Hypertension: Code(s): I10 - Essential (primary) hypertension Plan: stable; same rx Coding Level of Care Code Est Pt Level 3 (16917) Diagnoses Hypertension I10
[2023-09-22 14:14] VITALS: BP 132/68; PULSE 70; O2SAT 98; BMI 37.0
== END 2023-09-22 14:28 | disposition home or self-care (01) ==
PROVIDERS: PCP Internal Medicine; Visit Provider Internal Medicine
DX: I10 Essential (primary) hypertension (principal)
CPT/HCPCS: 99213

== ENCOUNTER 2023-12-20 06:33 | Outpatient (REF) | payer MEDICARE, SELFPAY ==
--- NOTE | ~2023-12-20 | MM_ITS ---
EXAMINATION: MM SCREENING DIGITAL BREAST TOMOSYNTHESIS, BILATERAL CLINICAL INFORMATION: Screening. Asymptomatic. COMPARISON: Mammography: Comparison is made with available priors TECHNIQUE: Digital breast mammography with tomosynthesis is performed in both the craniocaudal and mediolateral oblique views along with computer-aided detection (CAD). FINDINGS: There are scattered areas of fibroglandular density (ACR BI-RADS breast composition Category b). There are no significant masses, abnormal calcifications, or other abnormalities. MM/MM tomosynthesis screening BI IMPRESSION: No mammographic evidence of malignancy. ASSESSMENT: BI-RADS BI-RADS 1 - Negative RECOMMENDATION: Routine annual mammography screening. 1 year F/U This examination should not preclude the clinical evaluation of a suspicious palpable abnormality. This patient's information was entered into a reminder system with a target due date for their next mammogram. Electronically signed by: Josefina Butler DO 12/28/2023 08:17 AM [facility]
[2023-12-20 07:58] LABS: Cholesterol 208 mg/dL (<200); HDL Cholesterol 64 mg/dL (>40); LDL Cholesterol Calculated 130 mg/dL (<100); Triglycerides 70 mg/dL (<150)
[2023-12-20 08:15] LABS: Thyroid Stimulating Hormone 2.21 uIU/mL (0.32-4.0)
== END 2023-12-20 06:34 | disposition home or self-care (01) ==
LOC: HO.MAMMO 06:33
PROVIDERS: PCP Internal Medicine; Visit Provider Internal Medicine
DX: Z12.31 Encounter for screening mammogram for malignant neoplasm of breast (principal); Z13.29 Encounter for screening for other suspected endocrine disorder; Z13.220 Encounter for screening for lipoid disorders
CPT/HCPCS: 36415; 77063; 77067; 80061; 84443

== ENCOUNTER → 2023-12-20 07:45 | Outpatient (BNV) | payer MEDICARE, SELFPAY | PROVIDERS: PCP Internal Medicine; Visit Provider Internal Medicine | DX: Z12.31 Encounter for screening mammogram for malignant neoplasm of breast (principal) | CPT/HCPCS: 77063; 77067 ==

== ENCOUNTER 2023-12-27 08:56 | Outpatient (AMB) | payer MEDICARE, SELFPAY ==
--- NOTE | 2023-12-27 08:57 | MHC.PC.OV ---
Vital Signs 12/27/23 08:59 Height 5 ft 7 in Weight 229 lb 8 oz BMI 35.9 BP 136/74 Blood Pressure Location Lt brachial Position Sitting Pulse 74 Pulse Source Pulse Oximeter Pulse Oximetry (%) 97 Oxygen Delivery Method Room Air Intake Visit Reasons: Annual PE/ 3 mo f/u Intake Note: Patient is here today for a physical. Proposal Specialist Required: No Stave Cutting Supervisor: Not Required per policy Accompanied by: Self / Same As Patient Allergies No Known Allergies Allergy (Verified 12/27/23 08:59) Medication List - Last Reconciled 12/28/23 by Nadir Pan MD acetaminophen-codeine 300-30 mg 1 - 2 tabs PO Q8H PRN ciclopirox 0.77% 1 appl topical ONCE diltiazem HCl CD 180 mg PO DAILY hydrochlorothiazide 25 mg PO DAILY 90 days hydroxyzine pamoate 25 mg PO QID PRN lovastatin 40 mg PO DAILY Tobacco use date assessed: 12/27/23 Fall risk assessment: No Falls in past year Last assessed Fall Risk: 12/27/23 Dental Screening Dental Screen Date: 06/21/23 HPI Annual PE/ 3 mo f/u HPI Details hypertension and hyperlipidemia; compliant and doing well [facility] Medical History (Updated 08/26/22 @ 08:51 by Nadir Pan MD) Rash Hyperlipidemia Obesity Hypertension Annual physical exam Surgical History History of right hip replacement History of arthroplasty of left hip History of rectal polypectomy History of arthroplasty of right knee History of hysterectomy History of appendectomy Family History Father No problems noted. Mother No problems noted. Social History Housing: House Alcohol intake: never Patient Tobacco Use Status: Never used Tobacco e-Cigarette/Vaping Use: Never Used Second Hand Smoke Exposure: No service: No Current occupational status: retired Cognitive needs: No Hearing needs: No Vision needs: No Questionnaire PHQ-9 Over the last 2 weeks, how often have you been bothered by any of the following problems? 1. Little interest or pleasure in doing things: not at all 9. Thoughts that you would be better off or of hurting yourself in some way: not at all Source: Developed by Drs. Tj Arias, Gabriella Fan, Ronni Santana and colleagues, with an educational ana from [employer]. Thrive Questionnaire Date Thrive assessed: 12/25/23 I am a: Patient What is your living situation today?: I have a steady place to live Within the past 12 months, did the food you bought not last and you didn't have the money to get more?: Often true Within the past 12 months, did you worry whether your food would run out before you got money to buy more?: I choose not to answer this question Do you have trouble paying for medicines?: No Do you have trouble getting transportation to medical appointments?: No Do you have trouble paying your heating and electricity bill?: No Do you have trouble taking care of your child, family member or friend?: No Do you have trouble with day-to-day activities such as bathing, preparing meals, shopping, managing finances, etc.?: No Are you currently unemployed and looking for a job?: No Are you interested in more education?: No Please select the resources that you would like help with: None Currently or been in a relationship where the following occur: No concerns reported THRIVE Score: 1 AUDIT C Alcohol Use Questionnaire (AUDIT-C) 1. How often do you have a drink containing alcohol?: Monthly or less 2. How many drinks containing alcohol do you have on a typical day when you are drinking?: 1 or 2 3. How often do you have six or more drinks on one occasion?: Never Total Score: 1 ROS-7 AMB Questionnaire ROS-7 Date ROS - 7 assessed: 12/27/23 Feeling nervous, anxious, or on edge: 0 = Not at all Not being able to stop or control worryin = Not at all Worrying too much about different things: 0 = Not at all Trouble relaxin = Not at all Being so restless that it is hard to sit still: 0 = Not at all Becoming easily annoyed or irritable: 0 = Not at all Feeling afraid as if something awful might happen: 0 = Not at all Total ROS-7 score (0-4 normal; 5-9 mild; 10-14 moderate; 15-21 severe): 0 Source: Developed by Drs. Tj Arias, Gabriella Fan, Ronni Santana and colleagues, with an educational ana from [employer]. Review of Systems Const Denies chills, Denies fatigue, Denies headache(s) and Denies weight loss Eyes Denies change in vision, Denies diplopia and Denies eye pain ENT Denies vertigo, Denies dizziness, Denies headache(s) and Denies nasal discharge Card Denies chest pain, Denies rapid heart rate and Denies dyspnea on exertion Resp Denies chest congestion, Denies cough, Denies pain with cough and Denies dyspnea on exertion GI Denies abdominal pain, Denies hematochezia and Denies change in bowel habits Musc Denies myalgias, Denies arthralgias and Denies joint swelling Skin/Breast Denies lesions and Denies unusual bruising Neuro Denies vertigo, Denies dizziness, Denies headache(s) and Denies focal weakness Endo Denies fatigue Physical exam (Primary Care) Vital Signs: Last Vital Signs Pulse 74 12/27/23 08:59 BP 136/74 12/27/23 08:59 Pulse Ox 97 12/27/23 08:59 Oxygen Delivery Method Room Air 12/27/23 08:59 BMI result Body Mass Index 35.9 Tobacco/Smoking Status: Tobacco use Status Tobacco use date assessed 12/27/23 12/27/23 09:04 Patient Tobacco Use Status Never used Tobacco 12/27/23 09:04 e-Cigarette/Vaping Use Never Used 12/27/23 09:04 Thrive Assessment: Date of Thrive Assessment Date Thrive assessed 12/25/23 12/27/23 09:04 Currently or been in a relationship where the following occur: No concerns reported Const General: cooperative, healthy appearing and no acute distress Orientation/consciousness: oriented to person, oriented to place and oriented to time [facility] Head: Yes normal to inspection, Yes normocephalic and Yes atraumatic Mouth: Normal oral and palatal mucosa present and tongue normal Throat: Yes posterior oropharynx normal and Yes uvula midline Eyes General: appearance normal, both eyes and all related structures Neck Neck: Yes normal visual inspection, Yes full ROM and Yes no lymphadenopathy Thyroid: Thyroid normal Carotids: normal carotid upstroke Chest Chest palpation & inspection: normal inspection of the chest Resp Effort & Inspection: normal respiratory effort and able to speak in complete sentences Auscultation: clear to auscultation bilaterally Cardio Jugular venous distension: no JVD Palpation: normal PMI Rate: regular rate Rhythm: regular rhythm Heart sounds: S1 normal heart sound present and S2 normal heart sound present GI Inspection: Yes normal to inspection Palpation (GI): Soft to palpation and No hepatosplenomegaly present Auscultation: normal bowel sounds General: Yes no CVA tenderness Back/Spine/Pelvis Back: no CVA tenderness Skin General skin exam: no rashes or lesions noted Neuro General: oriented to person, oriented to place and oriented to time Extrem General: Yes normal to inspection and Yes full ROM Coding Level of Care Code Est Pt Prev Care >65y(00964) Diagnoses Annual physical exam Z00.00 Hyperlipidemia E78.5 Hypertension I10 Assessment & Plan Assessment & Plan (1) Annual physical exam: Code(s): Z00.00 - Encounter for general adult medical examination without abnormal findings Category: Medical Plan: stable; do labs (2) Hyperlipidemia: Code(s): E78.5 - Hyperlipidemia, unspecified Category: Medical Plan: stable; same rx (3) Hypertension: Code(s): I10 - Essential (primary) hypertension Category: Medical Plan: stable; same rx
[2023-12-27 08:59] VITALS: BP 136/74; PULSE 74; O2SAT 97; BMI 35.9
== END 2023-12-27 09:17 | disposition home or self-care (01) ==
LOC: HO.HMCH 08:56
PROVIDERS: PCP Internal Medicine; Visit Provider Internal Medicine
DX: Z00.00 Encounter for general adult medical examination without abnormal findings (principal); E78.5 Hyperlipidemia, unspecified; I10 Essential (primary) hypertension

== ENCOUNTER → 2023-12-27 08:56 | Outpatient (BNVA) | payer MEDICARE, SELFPAY | PROVIDERS: PCP Internal Medicine; Visit Provider Internal Medicine | DX: Z00.00 Encounter for general adult medical examination without abnormal findings (principal); E78.5 Hyperlipidemia, unspecified; I10 Essential (primary) hypertension | CPT/HCPCS: 99397 ==

== ENCOUNTER 2024-04-11 07:57 | Outpatient (REF) | payer MEDICARE, SELFPAY ==
--- OUTSIDE RECORDS SUMMARY | 2024-04-11 08:00 | XMS_ITS | Patient Health Record ---
Author Organization [facility] Mary desia Yvan Address [address] [facility] [place] [address] Care Team Providers Care Inside Sales Engineer Name Role Phone Viviane MARK, Nadir Primary Care Provider UnavailRomeo Conroy Unavailable [phone] Thelma Oakley Unavailable [phone] Allergies Allergen (clinical drug ingredient) Drug/Non Drug Allergy documented on EMR Reaction Allergy Type Onset Date Status Blueberry Flavor hives Drug Allergy Active Reason For Referral No Information Medications Medication SIG (Take, Route, Frequency, Duration) Notes Start Date End Date Status Flonase PRN Active Eszopiclone 2 MG Orally Not -Taking hydroCHLOROthiazide 25 MG 1 tablet Orall y Once a day Active Acetaminophen-Codeine 300-30 MG 1 tablet as needed Orally every 6 hrs PRN Active ZyrTEC Allergy Not-T aking Diltiazem HCl CD Act anabel Butalbital-Acetaminophen Not-Taking Lovastatin 40 MG 1 tablet with a meal Orally Once a day Active Ammonium Lactate 12 % 1 application Externally Twice a day for 30 days Not-Taking traMADol HCl Not-Robert ing hydrOXYzine Pamoate 25 MG as directed Orally PRN Active amLODIPine Besylate 5 MG 1 tablet Orally Once a day Not-Taking Ciclopirox Olamine 0.77 % 1 application Externally Twice a day for 30 days Active Hydrocortisone 2.5 % as directed Externally Twice a day for 30 days Not-Taking zzzCompression Stockings 20-30mm Hg . . . for . Not-Taking Allopurinol 300 MG as directed Orally PRN Not-Taking Immunizations Vaccine Route Administration Date Status Comme nts COVID-19 Moderna Vaccine Unknown 11/26/2021 Administered 1st 04/26/20 2nd 05/19/20 3rd 01/11/21 Influenza Unknown 11/26/2021 Administered Social History Tobacco Use: Social History Observation Description Date Details (start date - stop date) Never Smoker NA - NA Tobacco Use/Smoking Question Answer Notes Are you a: nonsmoker Alcohol Screen Question Answer Notes Did you have a drink contain ing alcohol in the past year? Yes How often did you have a dri nk containing alcohol in the past year? Monthly or less (1 point) How often did you have 6 or more drinks on one occasion in the past year? Less than monthly (1 point) Points 2 Interpretation Negative Tobacco use other than smoking: Question Answer Notes Are you an other tobacco user? No Problems Problem Type SNOMED Code ICD Code Onset Dates Problem Status W/U Status Risk Notes Problem Atherosclerosis of kake arteries of the extremities ([id number]) Atherosclerosis of kake artery of both lower extremities, with unspecified presence of clinical manifestation (I70.203) Active confirmed Vital Signs Blood pressure diastolic 75 mm Hg 02/02/2024 Height 5ft 7in in 02/02/2024 Blood pressure systolic 130 mm Hg 02/02/2024 Weight 230 lbs 02/02/2024 BMI 36.02 kg/m2 02/02/2024 Procedures Procedure Date Ordered Date Performed Result Body Sit e 06888-NGQNRUZ NAIL, 6 OR MORE 04/18/2023 N/A 97097-Fazv Destruction, 1-14 04/18/2023 N/A 86147-Sebhaicp Plate 04/18/2023 N/A 57124-Tzgcsuih Plate Each Additional 04/18/2023 N/A 03301-RXKTTYZ NAIL, 6 OR MORE 06/23/2023 N/A 51305-Mhez Destruction, 1-14 06/23/2023 N/A 35838-Dgkywhgi Plate 06/23/2023 N/A 77134-Lhbbsxnf Plate Each Additional 06/23/2023 N/A 97726-HLRUDVE NAIL, 6 OR MORE 09/01/2023 N/A 94042-Cylasuhf Plate 09/01/2023 N/A 19326-Ylhdkhrf Plate Each Additional 09/01/2023 N/A 29484-QKRU SKIN LESIONS, OVER 4 09/01/2023 N/A 74043-SMKKIQO NAIL, 6 OR MORE 11/14/2023 N/A 41810-Gsezikcj Plate 11/14/2023 N/A 79800-Acqjvagi Plate Each Additional 11/14/2023 N/A 64805-UWAY SKIN LESIONS, OVER 4 11/14/2023 N/A 92791-TRRJLOD NAIL, 6 OR MORE 02/02/2024 N/A 18942-Kgspsrlk Plate 02/02/2024 N/A 03628-Wruufagi Plate Each Additional 02/02/2024 N/A 33825-FYAZ SKIN LESIONS, OVER 4 02/02/2024 N/A Encounters Encounter Location Date Provider Diagnosis [address] [address] 04/18/2023 Romeo Laird Tinea unguium B35.1 ; Pain in right toe(s) M79.674 ; Pain in left toe(s) M79.675 ; Ingrowing nail L60.0 ; Plantar wart B07.0 ; Pain in right foot M79.671 and Xerosis of skin L85.[address] [address] 06/23/2023 Romeo Laird Tinea unguium B35.1 ; Pain in right toe(s) M79.674 ; Pain in left toe(s) M79.675 ; Ingrowing nail L60.0 ; Plantar wart B07.0 and Pain in right foot M79.[address] [address] 09/01/2023 Romeo Laird Atherosclerosis of kake artery of both lower extremities, with unspecified presence of clinical manifestation I70.203 ; Tinea unguium B35.1 ; Pain in right toe(s) M79.674 ; Pain in left toe(s) M79.675 ; Ingrown nail L60.0 and Tinea pedis of both feet B35.[address] [address] 11/14/2023 Romeo Laird Atherosclerosis of kake artery of both lower extremities, with unspecified presence of clinical manifestation I70.203 ; Tinea unguium B35.1 ; Pain in right toe(s) M79.674 ; Pain in left toe(s) M79.675 ; Ingrown nail L60.0 and Tinea pedis of both feet B35.[address] [address] 02/02/2024 Romeo Laird Atherosclerosis of kake artery of both lower extremities, with unspecified presence of clinical manifestation I70.203 ; Tinea unguium B35.1 ; Pain in right toe(s) M79.674 ; Pain in left toe(s) M79.675 and Ingrown nail L60.[address] [address] 01/30/2024 Romeo Laird Assessments Encounter Date Diagnosis (ICD Code) Assessment Notes Treatment Notes Treatment Clinical Notes Section Notes 04/18/2023 Tinea unguium (ICD-10 - B35.1) 04/18/2023 Pain in right toe(s) (ICD-10 - M79.674) 06/23/2023 Tinea unguium (ICD-10 - B35.1) 06/23/2023 Pain in right toe(s) (ICD-10 - M79.674) 09/01/2023 Tinea unguium (ICD-10 - B35.1) 09/01/2023 Atherosclerosis of kake artery of both lower extremities, with unspecified presence of clinical manifestation (ICD-10 - I70.203) 11/14/2023 Tinea unguium (ICD-10 - B35.1) 11/14/2023 Atherosclerosis of kake artery of both lower extremities, with unspecified presence of clinical manifestation (ICD-10 - I70.203) 02/02/2024 Tinea unguium (ICD-10 - B35.1) 02/02/2024 Atherosclerosis of kake artery of both lower extremities, with unspecified presence of clinical manifestation (ICD-10 - I70.203) 02/02/2024 Pain in right toe(s) (ICD-10 - M79.674) 11/14/2023 Pain in right toe(s) (ICD-10 - M79.674) 09/01/2023 Pain in right toe(s) (ICD-10 - M79.674) 06/23/2023 Pain in left toe(s) (ICD-10 - M79.675) 04/18/2023 Pain in left toe(s) (ICD-10 - M79.675) 04/18/2023 Ingrowing nail (ICD-10 - L60.0) 06/23/2023 Ingrowing nail (ICD-10 - L60.0) 09/01/2023 Pain in left toe(s) (ICD-10 - M79.675) 11/14/2023 Pain in left toe(s) (ICD-10 - M79.675) 02/02/2024 Pain in left toe(s) (ICD-10 - M79.675) 02/02/2024 Ingrown nail (ICD-10 - L60.0) 06/23/2023 Plantar wart (ICD-10 - B07.0) 11/14/2023 Ingrown nail (ICD-10 - L60.0) 09/01/2023 Ingrown nail (ICD-10 - L60.0) 04/18/2023 Plantar wart (ICD-10 - B07.0) 04/18/2023 Pain in right foot (ICD-10 - M79.671) 06/23/2023 Pain in right foot (ICD-10 - M79.671) 11/14/2023 Tinea pedis of both feet (ICD-10 - B35.3) 09/01/2023 Tinea pedis of both feet (ICD-10 - B35.3) 04/18/2023 Xerosis of skin (ICD-10 - L85.3) Plan Of Treatment Pending Test Test Name Order Date 09380-JUFXEED NAIL, 6 OR MORE 05/08/2015 72098-RZNECHJ NAIL, 6 OR MORE 08/14/2015 10751-UQDZJKO NAIL, 6 OR MORE 11/13/2015 53103-WNCEWHP NAIL, 6 OR MORE 02/05/2016 80519-DKCJWHV NAIL, 6 OR MORE 04/29/2016 77253-FHMDKNS NAIL, 6 OR MORE 07/29/2016 79729-MLVZLTB NAIL, 6 OR MORE 10/28/2016 62120-UTCRHBE NAIL, 6 OR MORE 01/27/2017 95827-HVIDPNE NAIL, 6 OR MORE 05/05/2017 83230-HDOXMAT NAIL, 6 OR MORE 07/07/2017 54305-DSPSZNA NAIL, 6 OR MORE 09/26/2017 77759-FPIHBRX NAIL, 6 OR MORE 12/19/2017 28972-EUFBNAC NAIL, 6 OR MORE 03/30/2018 23088-KEPNRJM NAIL, 6 OR MORE 06/26/2018 56237-OFLHSUP NAIL, 6 OR MORE 09/11/2018 80503-DLSNCRF NAIL, 6 OR MORE 11/30/2018 11917-TEOZCXH NAIL, 6 OR MORE 02/26/2019 53264-RBRTYFS NAIL, 6 OR MORE 04/30/2019 24641-YNTGKDZ NAIL, 6 OR MORE 08/02/2019 06794-GMNVCHV NAIL, 6 OR MORE 10/11/2019 71467-NSDVBSV NAIL, 6 OR MORE 12/24/2019 02129-SPOHPRO NAIL, 6 OR MORE 03/17/2020 88645-HHLSSYS NAIL, 6 OR MORE 06/02/2020 11887-CUPNTVN NAIL, 6 OR MORE 08/11/2020 61996-GLAVMPD NAIL, 6 OR MORE 11/10/2020 38796-GEAITTB NAIL, 6 OR MORE 01/22/2021 46680-SMCYGNP NAIL, 6 OR MORE 04/06/2021 65105-QEZEKCD NAIL, 6 OR MORE 06/08/2021 98851-PEVNVEP NAIL, 6 OR MORE 08/20/2021 91332-NFJVCVR NAIL, 6 OR MORE 11/09/2021 76896-EAWRVXO NAIL, 6 OR MORE 01/25/2022 45695-TMHHEGW NAIL, 6 OR MORE 04/12/2022 03745-NUYUCOY NAIL, 6 OR MORE 06/24/2022 00806-TWJQLAS NAIL, 6 OR MORE 09/02/2022 62217-DMXMVSU NAIL, 6 OR MORE 11/15/2022 93319-TQBZKEQ NAIL, 6 OR MORE 01/31/2023 13068-QQFKWDE NAIL, 6 OR MORE 04/18/2023 35247-LMCXVXA NAIL, 6 OR MORE 06/23/2023 75629-XGLPHKV NAIL, 6 OR MORE 09/01/2023 90509-SESPJIO NAIL, 6 OR MORE 11/14/2023 70480-KIZMBTS NAIL, 6 OR MORE 02/02/2024 63375-Lvnd Destruction, 03-0504/06/2021 22045-Zfcf Destruction, 03-0506/08/2021 23640-Berp Destruction, 03-0506/23/2023 46584-Iwye Destruction, 03-0504/18/2023 34116-Ufts Destruction, 03-0501/31/2023 74525-Jufh Destruction, 03-0511/15/2022 83159-Fzhb Destruction, 03-0509/02/2022 23682-Nnqt Destruction, 03-0506/24/2022 74590-Uinz Destruction, 03-0504/12/2022 01677-Ftkv Destruction, 03-0501/25/2022 57844-Lazo Destruction, 03-0511/09/2021 17136-Nmyh Destruction, 03-0508/20/2021 08640-Zlhz Destruction, 03-0511/10/2020 63367-Icus Destruction, 03-0501/22/2021 34284-Yhtl Destruction, 03-0506/02/2020 47191-Zvig Destruction, 03-0508/11/2020 38824-Gndo Destruction, 03-0503/17/2020 75260-Brsi Destruction, 03-0510/11/2019 09649-Vbbf Destruction, 03-0512/24/2019 40608-Xzcy Destruction, 03-0504/30/2019 51275-Shor Destruction, 03-0508/02/2019 12271-Esxz Destruction, 03-0511/30/2018 19069-Ztui Destruction, 03-0502/26/2019 51828-Xqfi Destruction, 03-0506/26/2018 40860-Zojs Destruction, 03-0509/11/2018 03235-Azhp Destruction, 03-0503/30/2018 13089-Ktgy Destruction, 03-0512/19/2017 15763-Zjdq Destruction, 03-0509/26/2017 02666-Vbfs Destruction, 03-0507/07/2017 48323-Ceqh Destruction, 1-14 01/27/2017 06486-Enke Destruction, 1-14 05/05/2017 23701-Livq Destruction, 1-14 10/28/2016 79340-Ekgw Destruction, 1-14 07/29/2016 90946-Zmckgvva Plate 10/28/2016 35325-Rzdgoevt Plate 01/27/2017 96132-Yrptprsv Plate 04/29/2016 82376-Bfluqkhy Plate 07/29/2016 07958-Ebrfwdxb Plate 02/05/2016 88304-Iesuqcqj Plate 07/07/2017 89560-Ououmnfy Plate 09/26/2017 40421-Uwxgbruz Plate 12/19/2017 76183-Ofmfzdaz Plate 03/30/2018 70451-Kffspuva Plate 06/26/2018 59529-Qknzuojc Plate 09/11/2018 35559-Hvsdlkst Plate 11/30/2018 28034-Wsklxmpy Plate 02/26/2019 06577-Gsecavkq Plate 10/11/2019 17893-Nciucuin Plate 08/02/2019 03448-Lpbigmqb Plate 04/30/2019 50131-Dfwvtnri Plate 12/24/2019 77600-Oyantsio Plate 03/17/2020 05781-Puuidxwy Plate 11/10/2020 54066-Muqihjga Plate 08/11/2020 96287-Kxpuftlm Plate 06/02/2020 60965-Mmxegywb Plate 01/22/2021 66831-Psmnxwce Plate 06/08/2021 85856-Uroyqvyb Plate 04/06/2021 09593-Aliqvaye Plate 08/20/2021 56984-Linyfrso Plate 11/09/2021 66364-Lvgbosab Plate 01/25/2022 66711-Hwrtwldg Plate 04/12/2022 26992-Uumtjrpf Plate 06/24/2022 08100-Titfwlrd Plate 09/02/2022 08585-Trwnjadi Plate 11/15/2022 81041-Daolvgac Plate 01/31/2023 74983-Exyoujut Plate 04/18/2023 10956-Ecfbawsy Plate 06/23/2023 04725-Qkqshtqo Plate 11/14/2023 81088-Grurnxzw Plate 09/01/2023 62195-Qacysycu Plate 02/02/2024 43013-Fhcvuoel Plate Each Additional 80773-Ltqbxeza Plate Each Additional 01/2024 92392-Djdphxgi Plate Each Additional 04062-Nsqudjaa Plate Each Additional 04/2023 44139-Soxqjgds Plate Each Additional 13838-Iscbgwvx Plate Each Additional 01/2023 13945-Uxmiacyu Plate Each Additional 80760-Lbrfgytb Plate Each Additional 73853-Ccskdfvg Plate Each Additional 06/2022 95085-Vsalaibf Plate Each Additional 55789-Hgexsrld Plate Each Additional 07/2021 06195-Xlhawmtf Plate Each Additional 35394-Vriwfbsc Plate Each Additional 02/2021 26465-Pvjffiuk Plate Each Additional 05601-Bhxfgflb Plate Each Additional 96813-Jbjbiilx Plate Each Additional 04/2020 27225-Irgmgsra Plate Each Additional 85789-Tdjjirwo Plate Each Additional 65790-Hqrjiaod Plate Each Additional 81856-Vgeobpae Plate Each Additional 74825-Yvifxomw Plate Each Additional 04/2019 97459-Qtocrvkm Plate Each Additional 11/2019 19783-Ibrekxyb Plate Each Additional 01/2020 43406-Tqenkmxc Plate Each Additional 46008-Ciudkmnf Plate Each Additional 08/2019 20462-Uxmsscls Plate Each Additional 12/2018 24930-Wniifgxf Plate Each Additional 30490-Sfeirosb Plate Each Additional 08/2018 73026-Lymshqke Plate Each Additional 09/2018 46062-Ttdvnikn Plate Each Additional 91661-Yecgdset Plate Each Additional 08/2017 29223-Morlejvj Plate Each Additional 07315-Ujfxgyjk Plate Each Additional 09/2016 69501-Dxzffsiv Plate Each Additional 09/2016 40301-ZDEC SKIN LESIONS, OVER 4 11/14/19 24 69735-ZULL SKIN LESIONS, OVER 4 09/01/19 00768-MGNF SKIN LESIONS, OVER 4 02/02/20 24 Next Appt Details Provider Name:Romeo Laird , 05/14/2024 08:45:00 AM, [address] [facility], [place], [address], Insurance Providers Payer Name Payer Address Payer Phone Subscriber Number Group Number Insured Name Patient Relationship to Insured Coverage Start Date Coverage End Date [employer] Medicare Adv-[id number] [address] [address] [place] [address] [id number] Sherry Pierce Self - patient is the insured Medical (General) History Medical History History ICD Code Arthritis Headaches Migraines High blood pressure Measles Mumps Chicken pox Cholesterol Surgical History Surgery Date(Month/Year) appendectomy 1957 skin graft 1960 hysterectomy 1981 left hip replacement 06/2009 right knee replacement 04/2009 colonoscopy R hip replacement 01/03/2022 Hospitalization History Reason Date(Month/Year) PCP/[facility] - Fainted in store d ue to dehydration hit head test done all clear 07/2021
--- OUTSIDE RECORDS SUMMARY | 2024-04-11 08:00 | XMS_ITS ---
[facility] Address [address] [place] [address] Care Team Providers Care Remotely Operated Vehicle Name Role Phone Viviane MARK, Nadir Primary Care Provider Unavaila Romeo Salgado Unavailable [phone] Encounters Encounter Location Date Provider Diagnosis [address] [address] 02/16/2024 Romeo Laird Plan Of Treatment Next Appt Details Provider Name:Romeo Laird , 05/14/2024 08:45:00 AM, [address] [place] [address], [phone], Progress Notes * Sherry PIERCE EDOB:1945 (78 yo F)Acc No.[id number]:02/16/2024 Progress Note Patient:?Sherry PIERCE Provider:?Romeo Laird DPM :1945???Age:78 Y???Sex:Female D ate:02/16/2024 Address:[place] Pcp:Nadir Pan MD Subjective: * Chief Complaints: * ??? * Medical History:? Objective: * Vitals:? Assessment: Plan: * Treatment: * Images: * The named appointment provid er may or may not be the originator of this progress note, and it is not deemed complete until electronically signed by the appointment provider. Sign off status: Pending * Provider:Mallory Laird DPM Date:?2023 Generated for Mariangel pa/Marni/Dillon on:?04/11/2024 07:59 AM EST
--- OUTSIDE RECORDS SUMMARY | 2024-04-11 08:00 | XMS_ITS ---
[facility] Address [address] [place] [address] Care Team Providers Care Insurance Manager Name Role Phone Viviane MARK, Nadir Primary Care Provider Unavaila Romeo Salgado Unavailable [phone] Thelma Oakley [phone] Encounters Encounter Location Date Provider Diagnosis [address] [address] 02/01/2024 Thelma Oakley Plan Of Treatment Next Appt Details Provider Name:Romeo Laird , 05/14/2024 08:45:00 AM, [address] [place] [address], [phone], Progress Notes * Sherry MOTT EDOB:1945 (78 yo F)Acc No.[id number]:02/01/2024 Progress Note Patient:?Sherry MOTT Provider:?Thelma Oakley DPM :1945???Age:78 Y???Sex:Female D ate:02/01/2024 Address:[address] Pcp:Nadir Pan MD Subjective: * Chief Complaints: * ??? * Medical History:? Objective: * Vitals:? Assessment: Plan: * Treatment: * Images: * The named appointment provid er may or may not be the originator of this progress note, and it is not deemed complete until electronically signed by the appointment provider. Sign off status: Pending * Provider:Charley Oakley DPM Date:?1 04/03/2023 Generated for Mariangel pa/Marni/Dillon on:?04/11/2024 07:59 AM EST
--- OUTSIDE RECORDS SUMMARY | 2024-04-11 08:00 | XMS_ITS ---
Author Organization [facility] Mary Santoro Address [address] [place] [address] Care Team Providers Care Blast Setter Name Role Phone Nadir Pan MD Primary Care Provider Unavaila Romeo Salgado Unavailable [phone] Allergies Allergen (clinical drug ingredient) Drug/Non Drug Allergy documented on EMR Reaction Allergy Type Onset Date Status Blueberry Flavor hives Drug Allergy Active REASON FOR VISIT At Risk Footcare, Painful Nail(s) aggrevated by shoes and causing difficulty standing/walking., Ingrown nail(s) Medications Medication SIG (Take, Route, Frequency, Duration) Notes Start Date End Date Status Flonase PRN Active hydroCHLOROthiazide 25 MG 1 tablet Orall y Once a day Active Acetaminophen-Codeine 300-30 MG 1 tablet as needed Orally every 6 hrs PRN Active Diltiazem HCl CD Act anabel Ciclopirox Olamine 0.77 % 1 application Externally Twice a day for 30 days Active Eszopiclone 2 MG Orally Not -Taking ZyrTEC Allergy Not-T aking Butalbital-Acetaminophen Not-Taking traMADol HCl Not-Robert ing Hydrocortisone 2.5 % as directed Externally Twice a day for 30 days Not-Taking Lovastatin 40 MG 1 tablet with a meal Orally Once a day Active Ammonium Lactate 12 % 1 application Externally Twice a day for 30 days Not-Taking amLODIPine Besylate 5 MG 1 tablet Orally Once a day Not-Taking zzzCompression Stockings 20-30mm Hg . . . for . Not-Taking Allopurinol 300 MG as directed Orally PRN Not-Taking hydrOXYzine Pamoate 25 MG as directed Orally PRN Active Social History Tobacco Use: Social History Observation [...] Are you an other tobacco user? No Vital Signs Height 5ft 7in in 02/02/2024 Weight 230 lbs 02/02/2024 BMI 36.02 kg/m2 02/02/2024 Blood pressure systolic 130 mm Hg 02/02/20 24 Blood pressure diastolic 75 mm Hg 024 Procedures Procedure Date Ordered Date Performed Result Body Sit e 91801-EVLEVTU NAIL, 6 OR MORE 02/02/2024 N/A 78009-Puljmfxr Plate 02/02/2024 N/A 95194-Edrridlu Plate Each Additional 02/02/2024 N/A 19078-DDBA SKIN LESIONS, OVER 4 02/02/2024 N/A Encounters Encounter Location Date Provider Diagnosis [facility] [address] [place] [address] 02/02/2024 Romeo Laird Atherosclerosis of [place] artery of both lower extremities, with unspecified presence of clinical manifestation I70.203 ; Tinea unguium B35.1 ; Pain in right toe(s) M79.674 ; Pain in left toe(s) M79.675 and Ingrown nail L60.0 Assessments Encounter Date Diagnosis (ICD Code) Assessment Notes Treatment Notes Treatment Clinical Notes Section Notes 02/02/2024 Atherosclerosis of [place] artery of both lower extremities, with unspecified presence of clinical manifestation (ICD-10 - I70.203) 02/02/2024 Tinea unguium (ICD-10 - B35.1) 02/02/2024 Pain in right toe(s) (ICD-10 - M79.674) 02/02/2024 Pain in left toe(s) (ICD-10 - M79.675) 02/02/2024 Ingrown nail (ICD-10 - L60.0) Plan Of Treatment Pending Test Test Name Order Date 85616-JDPAZUU NAIL, 6 OR MORE 02/02/2024 93223-Layqnnhs Plate 02/02/2024 58504-Bxeecosx Plate Each Additional 10669-KRRO SKIN LESIONS, OVER 4 02/02/20 24 Next Appt Details Follow Up: prn, Reason: Provider Name:Romeo Laird , 05/14/2024 08:45:00 AM, [address] [place], [address], Procedure Notes * Category Sub-Category Detail Notes Nail Avulsion Procedure A fine sterile e levator was placed between the eponychium, nail fold, and nail plate to separate the the structures. A sterile nail splitter, and/or sterile #316 blade, was then used to longitudinally section the nail along its entire length through the eponychium to the area under the nail fold. The offending portion of nail was from the nail bed with a rolling action and then removed with a hemostat. No underlying bone was identified. A bacitracin sterile dressing was applied. Local wound aftercare instructions were discussed and dispensed. The patient was informed of both conservative and future surgical procedures to prevent recurrence (42971/32), Pt CONT TO, defer matricectomy Anesthesia 2cc of 1% Lidocaine Plain local anesthesic utilizing aseptic technique, to each toe Location Bilateral nail borde rs, TA, T5 Debride Nail 6-10 Nail debridement Due to the cl inical pathology outlined in the exam findings, performance of this nail treatment is medically necessary as its management by an unskilled/untrained nonprofessional would put this patients foot and overall health at risk. Therefore, debridement to affected nail(s), as described in exam ( T1, T2, T3, T4, T6, T7, T8, T9), was performed exclusively by the physician of record to reduce/remove overall nail length, girth, thickness, subungual debris, and necrotic tissue, by manual and/or electrical means through the use of a nail nipper and/or dremel-type wheel grinder, to a more viable healthy nail plate or bed tissue 6-10 nails in total. Silver nitrate was used for any petechial bleeding as necessary. Definitive antifungal treatment options, both pharmaceutical and surgical, have been reviewed and discussed with the patient. The patient solely prefers the use of intermittent/as needed professional debridement services for their nail condition and understands the need for additional periodic treatments to maintain effectiveness in symptomatic relief - 10890 Keratoma Treatment Parring or Cutting o f Benign Hyperkeratotic Lesion(s) (-57) More than 4 Lesions - Due to the a t risk nature of the patients medical condition as documented in the exam findings, performance of this keratoderma treatment is medically necessary as its management by an unskilled/untrained nonprofessional would put this patients foot and overall health at risk. Therefore, the benign hyperkeratotic lesions, ( 8) in total, locations as stated and described in the exam ( SUB MTH (s), 1, B/L, SUB MTH (s), 3, Left, SUB MTH (s), 4, Left, SUB MTH (s), 5, B/L, Plantar, Heel(s), B/L), were pared, and/or cut utilizing a sterile 15 blade, tissue nippers, and/or power dremel instrumentation by the physician of record - 59813, Q8 Progress Notes * Rc PIERCEtrude EDOB:1945 (78 yo F)Acc No.[id number]:02/02/2024 Progress Note Patient:?Sherry PIERCE Provider:?Romeo Laird DPM :1945???Age:78 Y???Sex:Female D ate:02/02/2024 [address] [place] Pcp:Nadir Pan MD Subjective: * Chief Complaints: * ???At Risk FootcarePainful N ail(s) aggrevated by shoes and causing difficulty standing/walking.Ingrown nail(s) * HPI: ???At Risk footcare:?Pt States Last PCP Visit:?Date?12/20/2023 * ROS:?General/Constitutional:?Nausea?denies.?Vomiting?denies.?Hunger Thirst?denies.?Loss appetite?denies.?Chills?denies.?Fatigue?denies.?Fever?denies.?Night Sweats?denies.?Unexplained weight loss??admits.?Ophthalmologic:?Blurred vision?denies.?Red eye?denies.?HEENTM:?Dentures?denies.?Dizziness?denies.?Glasses/contacts??admits.?Retinopathy?d enies.?Blurred/double vision?denies.?TMJ?denies.?Discharge/drainage?denies.?Implants?denies.?Hard of hearing ?denies.?Difficulty chewing/swallowing/speaking?denies.?Nose bleeds?denies.?Sore mouth?denies.?Swollen glands?denies.?Respiratory:?On Oxygen?denies.?Pneumonia/pleurisy?denies.?Bronchitis?denies.?Emphysema?denies.?C oughing?denies.?Cough blood?denies.?Shortness of breath?denies.?Wheezing?denies.?Cardiovascular:?Pacemaker?denies.?MVP?denies.?WPW?denies.?CHF?denies.?Heart attack?denies.?Septal defect?denies.?Rapid beat?denies.?Chest pain ?denies.?Atrial Fib.?denies.?Murmur/Palpitations?denies.?Gastrointestinal:?Hemorrhoids?denies.?Stomach/Abdominal pain?denies.?Dark blood stool?denies.?Irritable bowel ?denies.?Constipation?denies.?Diarrhea?denies.?Vomiting?denies.?Hematology:?Swelling?admits.?Bruising?denies.?Bleeding problem?denies.?Genitourinary:?Blood urine?denies.?Frequent/Painfu/urination/bladder control?denies.?Kidney stones?denies.?Infection (UTI)?denies.?Nephropathy?denies.?Musculoskeletal:?Hammertoes?denies.?Bunions?denies.?Scoliosis/kyphosis?denies.?Muscle cramps / walking?denies.?Generalized aches and pains??admits.?Weakness?denies.?Integ.:?Hoffman?denies.?Scars?denies.?Corns/calluses??admits.?Ingrown nails??admits.?Painful nails??admits.?Rashes?denies.?Neurologic:?Difficulty sleeping?denies.?Bipolar?denies.?Brain disorder?denies.?Balance trouble?denies.?Confusion?denies.?Fainting/blackouts?denies.?Headache?denies.?Tr emors?denies.? * Medical History:? * Surgical History:?appendecto my 1958skin graft 1960hysterectomy 1982left hip replacement 06/2009right knee replacement 04/2009colonoscopy R hip replacement 01/03/2022 * Hospitalization/Major Diagno stic Procedure:?PCP/[facility] - Fainted in store due to dehydration hit head test done all clear 07/2021 * Family History:?Mother: dece ased, diagnosed with Unspecified essential hypertension.?Father: , foot problems, diagnosed with Family history of arthritis, Unspecified cerebral artery occlusion with cerebral infarction.?Spouse: alive.? * Social History:?Tobacco Use:?Tobacco Use/Smoking?Are you a:?nonsmoker ?Tobacco use other than smoking?Are you an other tobacco user??No ???Drugs/Alcohol:?Drugs?Have you used drugs other than those for medical reasons in the past 12 months??No ?Alcohol Screen?Did you have a drink containing alcohol in the past year??Yes ?How often did you have a drink containing alcohol in the past year??Monthly or less (1 point) ?How often did you have 6 or more drinks on one occasion in the past year??Less than monthly (1 point) ?Points?2 ?Interpretation?Negative ???Miscellaneous:?Caffeine: yes, frequency:, 2-3 cups per day. ?Children: yes. ?Exercise: yes, exercise at home , PT Hip. ?Marital status: . ?Occupation: Works Part-time, Retired. * Medications:?TakingCiclopiro x Olamine 0.77 % Cream 1 application Externally Twice a day Acetaminophen-Codeine 300-30 MG Tablet 1 tablet as needed Orally every 6 hrs , Notes to Pharmacist: PRNDiltiazem HCl CD Flonase , Notes to Pharmacist: PRNhydroCHLOROthiazide 25 MG Tablet 1 tablet Orally Once a day hydrOXYzine Pamoate 25 MG Capsule as directed Orally , Notes to Pharmacist: PRNLovastatin 40 MG Tablet 1 tablet with a meal Orally Once a day Taking Ciclopirox Olamine 0.77 % Cream 1 application Externally Twice a day Taking Acetaminophen-Codeine 300-30 MG Tablet 1 tablet as needed Orally every 6 hrs , Notes to Pharmacist: PRNTaking Diltiazem HCl CD Taking Flonase , Notes to Pharmacist: PRNTaking hydroCHLOROthiazide 25 MG Tablet 1 tablet Orally Once a day Taking hydrOXYzine Pamoate 25 MG Capsule as directed Orally , Notes to Pharmacist: PRNTaking Lovastatin 40 MG Tablet 1 tablet with a meal Orally Once a day Not-Taking/PRNAmmonium Lactate 12 % Cream 1 application Externally Twice a day zzzCompression Stockings 20-30mm Hg 1 pair closed toe- knee high . . . Allopurinol 300 MG Tablet as directed Orally , Notes to Pharmacist: PRNamLODIPine Besylate 5 MG Tablet 1 tablet Orally Once a day Hydrocortisone 2.5 % Cream as directed Externally Twice a day ZyrTEC Allergy Butalbital-Acetaminophen Eszopiclone 2 MG Tablet Orally traMADol HCl Medication List reviewed and reconciled with the patientNot-Taking/PRN Ammonium Lactate 12 % Cream 1 application Externally Twice a day Not-Taking/PRN zzzCompression Stockings 20-30mm Hg 1 pair closed toe- knee high . . . Not-Taking/PRN Allopurinol 300 MG Tablet as directed Orally , Notes to Pharmacist: PRNNot-Taking/PRN amLODIPine Besylate 5 MG Tablet 1 tablet Orally Once a day Not-Taking/PRN Hydrocortisone 2.5 % Cream as directed Externally Twice a day Not-Taking/PRN ZyrTEC Allergy Not-Taking/PRN Butalbital-Acetaminophen Not- Taking/PRN Eszopiclone 2 MG Tablet Orally Not-Taking/PRN traMADol HCl Medication List reviewed and reconciled with the patient * Allergies:?Blueberry Flavor: hivesyes[Allergies Verified] Objective: * Vitals:?Ht: 5ft 7in, Wt:230, BMI: 36.02, Shoe size:10, BP:130/75mm Hg, Ht-cm: 170.18 cm, Wt-k.33 kg. * Examination: ???Vascular: ?DP PULSES(B):?1/4, B/L.?PT PULSES(B):? 0/4, B/L.?CAPILLARY FILL TIME:? delayed, all digits, B/L.?TROPHIC CONDITION-TEXTURE/ELASTICITY/TURGOR/HAIR GROWTH(B):? decreased, with sparse to absent hair growth, B/L.?TEMPERTURE GRADIENT(C):? decreased, cool to cool, proximal to distal, B/L.?PIGMENTATION:?mottled, B/L.?EDEMA(C):?1/4 , non-pitting , without aching pain , Leg(s) , Ankle(s) , Foot , B/L.?CLAUDICATION(C):?denies, B/L.?REST PAIN:?denies, B/L.?Nails: ?NAILS are:?Elongated, overgrown, dystrophic, lytic, greater than 3mm thick, discolored and friable with crumbly malodorous subungual debris, with pain on palpation, T1, T2, T3, T4, T6, T7, T8, T9, all other nails not described with characteristics as possessing mycosis are elongated, overgrown, and dystrophic.?Dermatologic: ?SKIN FINDINGS:?Skin exam reveals Keratotic lesion(s) located at , SUB MTH (s), 1, B/L, SUB MTH (s), 3, Left, SUB MTH (s), 4, Left, SUB MTH (s), 5, B/L, Plantar, Heel(s), B/L.?Ingrown Nail: ?INSPECTION:?Reveals nail incurvation, pain on palpation, groove hypertrophy, Bilateral nail borders, TA, T5.? Assessment: * Assessment: 1.?Tinea unguium - B35.1???2 .?Atherosclerosis of [place] artery of both lower extremities, with unspecified presence of clinical manifestation - I70.203 (Primary)???3.?Pain in right toe(s) - M79.674???4.?Pain in left toe(s) - M79.675 ??5.?Ingrown nail - L60.0???Specify :Bilateral nail borders, TA, T5??? Plan: * Treatment: 2.?Tinea unguium?Procedure: 81134-ZQQDGKU NAIL, 6 OR MORE 3.?Ingrown nail?Procedure: 71341-Mfnxtmlx Plate ?Procedure: 25219-Spkkweje Plate Each Additional * Procedures:?Debride Nail 6-10:?Nail debridement?Due to the clinical pathology outlined in the exam findings, performance of this nail treatment is medically necessary as its management by an unskilled/untrained nonprofessional would put this patients foot and overall health at risk. Therefore, debridement to affected nail(s), as described in exam (?T1,?T2,?T3,?T4,?T6,?T7,?T8,?T9), was performed exclusively by the physician of record to reduce/remove overall nail length, girth, thickness, subungual debris, and necrotic tissue, by manual and/or electrical means through the use of a nail nipper and/or dremel-type wheel grinder, to a more viable healthy nail plate or bed tissue 6- 10 nails in total. Silver nitrate was used for any petechial bleeding as necessary. Definitive antifungal treatment options, both pharmaceutical and surgical, have been reviewed and discussed with the patient. The patient solely prefers the use of intermittent/as needed professional debridement services for their nail condition and understands the need for additional periodic treatments to maintain effectiveness in symptomatic relief - 47059.?Keratoma Treatment:?Parring or Cutting of Benign Hyperkeratotic Lesion(s)?(-57) More than 4 Lesions - Due to the at risk nature of the patients medical condition as documented in the exam findings, performance of this keratoderma treatment is medically necessary as its management by an unskilled/untrained nonprofessional would put this patients foot and overall health at risk. Therefore, the benign hyperkeratotic lesions, ( 8) in total, locations as stated and described in the exam (?SUB MTH (s),?1,?B/L,?SUB MTH (s),?3,?Left,?SUB MTH (s),?4,?Left,?SUB MTH (s),?5,?B/L,?Plantar,?Heel(s),?B/L), were pared, and/or cut utilizing a sterile 15 blade, tissue nippers, and/or power dremel instrumentation by the physician of record - 75718, Q8.?Nail Avulsion:?Location?Bilateral nail borders, TA, T5.?Anesthesia?2cc of 1% Lidocaine Plain local anesthesic utilizing aseptic technique, to each toe.?Procedure?A fine sterile elevator was placed between the eponychium, nail fold, and nail plate to separate the the structures. A sterile nail splitter, and/or sterile #316 blade, was then used to longitudinally section the nail along its entire length through the eponychium to the area under the nail fold. The offending portion of nail was from the nail bed with a rolling action and then removed with a hemostat. No underlying bone was identified. A bacitracin sterile dressing was applied. Local wound aftercare instructions were discussed and dispensed. The patient was informed of both conservative and future surgical procedures to prevent recurrence (42779/32), Pt CONT TO, defer matricectomy.? * Procedure Codes:?82791 DEBRI DE NAIL, 6 OR MORE, Modifiers: XS 35874 Avulsion Plate, Modifiers: XS , [id number] Avulsion Plate Each Additional, Modifiers: XS , [id number] TRIM SKIN LESIONS, OVER 4, Modifiers: XS , Q8 * Follow Up:?prn * Images: * Sign off status: Completed true * Provider:?Romeo Laird DPM Date:?2023 Generated for Mariangel pa/Marni/Dillon on:?04/11/2024 08:00 AM EST History and Physical Notes * HPI (History of Present Illness) Category Sub-Category Detail Notes Category Not es At Risk footcare Pt States Last PCP Visit: Date: Examination Category Sub-Category Detail Notes Category Not es Ingrown Nail INSPECTION: Reveals nail inc urvation, pain on palpation, groove hypertrophy, Bilateral nail borders, TA, T5 Dermatologic SKIN FINDINGS: Skin exam reveal s Keratotic lesion(s) located at , SUB MTH (s), 1, B/L, SUB MTH (s), 3, Left, SUB MTH (s), 4, Left, SUB MTH (s), 5, B/L, Plantar, Heel(s), B/L Vascular DP PULSES (B): 1/4, B/L PT PULSES (B): 0/4, B/L CAPILLARY FILL TIME: delayed, all digits , B/L TEMPERTURE GRADIENT (C): decreased, cool to cool, proximal to distal, B/L TROPHIC CONDITION-TEXTURE/ELASTICITY/TURGOR/HAIR GROWTH (B): decreased, with sparse to absent hair gr owth, B/L EDEMA (C): 1/4 , non-pitting , without aching pain , Leg(s) , Ankle(s) , Foot , B/L CLAUDICATION (C): denies, B/L REST PAIN: denies, B/L PIGMENTATION: mottled, B/L Nails NAILS are: Elongated, overg rown, dystrophic, lytic, greater than 3mm thick, discolored and friable with crumbly malodorous subungual debris, with pain on palpation, T1, T2, T3, T4, T6, T7, T8, T9, all other nails not described with characteristics as possessing mycosis are elongated, overgrown, and dystrophic
[2024-04-11 08:07] LABS: MANUAL DIFF FLAG NO
[2024-04-11 08:18] LABS: Basophils Percent Auto 0.2 % (0-2); Eosinophils Percent Auto 0.9 % (0-4); Hematocrit 40.2 % (37.0-47.0); Hemoglobin 13.1 g/dl (12.0-16.0); Imm Gran Abs Auto 0.02 X10*3/uL (0.00-0.03); Imm Gran Pct Auto 0.4 % (0.0-0.4); Lymphocytes Percent Auto 45.3 % (20-40); Mean Corpuscular HGB Conc 32.6 g/dl (31.0-35.0); Mean Corpuscular Hemoglobin 27.1 pg (27.0-33.0); Mean Corpuscular Volume 83.1 fL (80.0-98.0); Mean Platelet Volume 9.4 fL (9.4-12.3); Monocytes Absolute Auto 0.6 X10*3/uL (0.1-1.2); Monocytes Percent Auto 12.3 % (2-11); Neutrophils Absolute Auto 1.8 x10*3/uL (2.0-8.3); Neutrophils Percent Auto 40.9 % (45-73); Platelet Count 281 X10*3/uL (160-400); Red Blood Count 4.84 X10*6/uL (4.20-5.50); Red Cell Distribution Width 14.1 % (11.0-16.0); White Blood Count 4.5 X10*3/uL (4.8-10.8)
[2024-04-11 08:59] LABS: Alanine Aminotransferase 19 U/L (0-31); Albumin Level 3.9 g/dL (3.5-5.0); Alkaline Phosphatase 143 U/L (39-117); Anion Gap 15 (12-20); Aspartate Amino Transferase 33 U/L (5-31); Bilirubin Total 0.3 mg/dL (0.0-1.0); Blood Urea Nitrogen 17 mg/dL (9-16); Carbon Dioxide 27 mmol/L (22-29); Chloride 104 mmol/L (96-108); Cholesterol 169 mg/dL (<200); Estimated Glomerular Filt Rate > 60; Glucose Fasting 87 mg/dL (60-99); HDL Cholesterol 43 mg/dL (>40); LDL Cholesterol Calculated 106 mg/dL (<100); Potassium 3.5 mmol/L (3.3-5.1); Sodium 142 mmol/L (135-145); Total Protein 7.9 g/dL (6.5-8.0); Triglycerides 101 mg/dL (<150)
[2024-04-11 09:14] LABS: Thyroid Stimulating Hormone 1.49 uIU/mL (0.32-4.0)
== END 2024-04-11 07:58 | disposition home or self-care (01) ==
LOC: HO.LAB 07:57
PROVIDERS: PCP Internal Medicine; Visit Provider Internal Medicine
DX: E78.5 Hyperlipidemia, unspecified (principal); I10 Essential (primary) hypertension; Z13.0 Encounter for screening for diseases of the blood and blood-forming organs and certain disorders involving the immune mechanism; Z13.220 Encounter for screening for lipoid disorders; Z13.29 Encounter for screening for other suspected endocrine disorder
CPT/HCPCS: 36415; 80053; 80061; 84443; 85025; 96127; 99212

== ENCOUNTER 2024-04-11 09:48 | Outpatient (AMB) | payer MEDICARE, SELFPAY ==
--- NOTE | 2024-04-11 09:50 | A.OFFPC_ITS ---
Vital Signs 04/11/24 09:51 Height 5 ft 7 in Weight 221 lb 8 oz BMI 34.7 BP 130/70 Blood Pressure Location Lt brachial Position Sitting Pulse 72 Pulse Source Pulse Oximeter Temp 96.9 F Temp Source Temporal Artery Scan Pulse Oximetry (%) 94 Oxygen Delivery Method Room Air Intake Visit Reasons: 3 months f/u Intake Note: Patient is here to follow up on HLD, HTN. Tuber Helper Required: No Brothel Keeper: Not Required per policy Accompanied by: Self / Same As Patient Allergies No Known Allergies Allergy (Verified 04/11/24 09:51) Medication List - Last Reconciled 04/11/24 by Nadir Pan MD acetaminophen-codeine 300-30 mg 1 - 2 tabs PO Q8H PRN ciclopirox 0.77% 1 appl topical ONCE diltiazem HCl CD 180 mg PO DAILY hydrochlorothiazide 25 mg PO DAILY 90 days hydroxyzine pamoate 25 mg PO QID PRN lovastatin 40 mg PO DAILY Tobacco use date assessed: 04/11/24 Fall risk assessment: No Falls in past year Last assessed Fall Risk: 04/11/24 Dental Screening Dental Screen Date: 04/11/24 Did you have a dental visit in the last 12 months?: No Did you have a dental problem in the last 6 months where you did not have access to dental care?: No Was dental information given to patient?: Patient has dentist HPI 3 months f/u HPI Details hyperlipidemia on rx; doing well; compliant [facility] Medical History (Updated 08/26/22 @ 08:51 by Nadir Pan MD) Rash Hyperlipidemia Obesity Hypertension Annual physical exam Surgical History History of right hip replacement History of arthroplasty of left hip History of rectal polypectomy History of arthroplasty of right knee History of hysterectomy History of appendectomy Family History Father No problems noted. Mother No problems noted. Social History Housing: House Alcohol intake: never Patient Tobacco Use Status: Never used Tobacco e-Cigarette/Vaping Use: Never Used Second Hand Smoke Exposure: No service: No Current occupational status: retired Cognitive needs: No Hearing needs: No Vision needs: No Questionnaire PHQ-9 Over the last 2 weeks, how often have you been bothered by any of the following problems? 1. Little interest or pleasure in doing things: not at all 2. Feeling down, depressed, or hopeless: not at all 3. Trouble falling or staying asleep, or sleeping too much: not at all 4. Feeling tired or having little energy: not at all 5. Poor appetite or overeating: not at all 6. Feeling bad about yourself - or that you are a failure or have let yourself or your family down: not at all 7. Trouble concentrating on things, such as reading the newspaper or watching television: not at all 8. Moving or speaking so slowly that other people could have noticed. Or the opposite - being so fidgety or restless that you have been moving around a lot more than usual: not at all 9. Thoughts that you would be better off or of hurting yourself in some w ay: not at all Total score: 0 Depression Screening Interpretation: Negative Depression Screening Done: Yes Source: Developed by Drs. Tj Arias, Gabriella Fan, Ronni Santana and colleagues, with an educational ana from [employer]. Thrive Questionnaire Date Thrive assessed: 04/11/24 AUDIT C Alcohol Use Questionnaire (AUDIT-C) 1. How often do you have a drink containing alcohol?: Monthly or less 2. How many drinks containing alcohol do you have on a typical day when you are drinking?: 1 or 2 Total Score: 1 ROS-7 AMB Questionnaire ROS-7 Date ROS - 7 assessed: 04/11/24 Feeling nervous, anxious, or on edge: 0 = Not at all Not being able to stop or control worryin = Not at all Worrying too much about different things: 0 = Not at all Trouble relaxin = Not at all Being so restless that it is hard to sit still: 0 = Not at all Becoming easily annoyed or irritable: 0 = Not at all Feeling afraid as if something awful might happen: 0 = Not at all Total ROS-7 score (0-4 normal; 5-9 mild; 10-14 moderate; 15-21 severe): 0 Source: Developed by Gabriella Clarke Meng, Ronni Santana and colleagues, with an educational ana from [employer]. Review of Systems Const Denies chills, Denies headache(s) and Denies weight loss ENT Denies headache(s) Card Denies chest pain, Denies syncope, Denies irregular heart rhythm and Denies dyspnea Resp Denies chest congestion, Denies cough and Denies dyspnea GI Denies abdominal pain, Denies change in stool character, Denies nausea and Denies vomiting Musc Denies deformity and Denies joint swelling Neuro Denies syncope and Denies headache(s) Physical exam (Primary Care) Vital Signs: Last Vital Signs Temp 96.9 F 04/11/24 09:51 Pulse 72 04/11/24 09:51 BP 130/70 04/11/24 09:51 Pulse Ox 94 04/11/24 09:51 Oxygen Delivery Method Room Air 04/11/24 09:51 BMI result Body Mass Index 34.7 Tobacco/Smoking Status: Tobacco use Status Tobacco use date assessed 04/11/24 04/11/24 09:57 Patient Tobacco Use Status Never used Tobacco 04/11/24 09:57 e-Cigarette/Vaping Use Never Used 04/11/24 09:57 PHQ-9: PHQ-9 Score PHQ-9: Total score 0 04/11/24 09:57 Depression Screening Interpretation: Negative Thrive Assessment: Date of Thrive Assessment Date Thrive assessed 04/11/24 04/11/24 09:57 Const General: cooperative, comfortable, no acute distress and alert Neck Neck: Yes no lymphadenopathy Thyroid: Thyroid normal Resp Effort & Inspection: normal respiratory effort Auscultation: clear to auscultation bilaterally Percussion: percussion normal Cardio Jugular venous distension: no JVD Palpation: normal PMI Rate: regular rate Rhythm: regular rhythm Heart sounds: S1 normal heart sound present and S2 normal heart sound present GI Inspection: Yes normal to inspection Palpation (GI): No hepatosplenomegaly present Skin General skin exam: no rashes or lesions noted Extrem General: Yes no clubbing, cyanosis or edema Coding Level of Care Code Est Pt Level 3 (92240) Diagnoses Hyperlipidemia E78.5 Assessment & Plan Assessment & Plan (1) Hyperlipidemia: Code(s): E78.5 - Hyperlipidemia, unspecified Category: Medical Plan: stable; same rx
[2024-04-11 09:51] VITALS: BP 130/70; PULSE 72; TEMP 36.1; O2SAT 94; BMI 34.7
== END 2024-04-11 10:17 | disposition home or self-care (01) ==
PROVIDERS: PCP Internal Medicine; Visit Provider Internal Medicine
DX: E78.5 Hyperlipidemia, unspecified (principal)

== ENCOUNTER 2024-05-28 11:11 | Outpatient (AMB) | payer MEDICARE, SELFPAY ==
--- NOTE | 2024-05-28 11:28 | MHC.PC.OV ---
Vital Signs 05/28/24 11:29 Height 5 ft 7 in Weight 225 lb BMI 35.2 BP 156/84 H Blood Pressure Location Lt brachial Position Sitting Pulse 66 Pulse Source Pulse Oximeter Temp 97.1 F Temp Source Temporal Artery Scan Pulse Oximetry (%) 97 Oxygen Delivery Method Room Air Intake Visit Reasons: JET Dr Pan Student Counselor Required: No Accompanied by: Self / Same As Patient Allergies No Known Allergies Allergy (Verified 05/28/24 11:37) Medication List - Last Reconciled 05/28/24 by Franko Todd PA-C acetaminophen-codeine 300-30 mg 1 - 2 tabs PO Q8H PRN ciclopirox 0.77% 1 appl topical ONCE diltiazem HCl CD 180 mg PO DAILY hydrochlorothiazide 25 mg PO DAILY 90 days hydroxyzine pamoate 25 mg PO QID PRN lovastatin 40 mg PO DAILY Tobacco use date assessed: 04/11/24 Fall risk assessment: No Falls in past year Last assessed Fall Risk: 05/28/24 Dental Screening Dental Screen Date: 04/11/[address] Pan HPI Details Patient is a 78-year-old female here today for transfer of care visit. Patient's previous PCP was Dr. Pan. Patient has a past medical history significant for hyperlipidemia, hypertension, class 2 obesity. .. Hypertension: Patient's blood pressure today in office elevated, she stays pretty consistent with the use of her diltiazem and hydrochlorothiazide. She usually reports her blood pressures are 130 systolic. She otherwise denies any chest pain, dizziness, headache or shortness of breath. .. Hyperlipidemia: Continues on lovastatin most recent lipid panel showing much better control over total cholesterol and LDL. Laboratory Tests 08/18/22 12/20/23 04/11/24 08:27 06:46 08:06 RBC 4.84 Hgb 13.1 Creatinine 0.84 AST 22 33 H Alkaline Phosphata se 161 H 143 H Cholesterol 208 H 169 LDL Cholesterol, C alc 130 H 106 H TSH 1.49 PFSH Medical History Rash Hyperlipidemia Obesity Hypertension Annual physical exam Surgical History History of right hip replacement History of arthroplasty of left hip History of rectal polypectomy History of arthroplasty of right knee History of hysterectomy History of appendectomy Family History Father No problems noted. Mother No problems noted. Social History Housing: House Alcohol intake: never Patient Tobacco Use Status: Never used Tobacco e-Cigarette/Vaping Use: Never Used Second Hand Smoke Exposure: No service: No Current occupational status: retired Cognitive needs: No Hearing needs: No Vision needs: No Questionnaire Thrive Questionnaire Date Thrive assessed: 04/11/24 AUDIT C Alcohol Use Questionnaire (AUDIT-C) 2. How many drinks containing alcohol do you have on a typical day when you are drinking?: 1 or 2 3. How often do you have six or more drinks on one occasion?: Never Total Score: 0 ROS-7 AMB Questionnaire ROS-7 Date ROS - 7 assessed: 04/11/24 Source: Developed by Drs. Tj Arias, Gabriella Fan, Ronni Santana and colleagues, with an educational ana from [employer]. Review of Systems Const Denies headache(s) Eyes Denies loss of vision ENT Denies vertigo, Denies dizziness, Denies headache(s) and Denies sore throat Card Denies chest pain, Denies leg edema and Denies lightheadedness Resp Denies cough, Denies hemoptysis and Denies wheezing GI Denies abdominal pain, Denies melena, Denies constipation, Denies diarrhea and Denies vomiting Denies urinary frequency, Denies dysuria and Denies urinary urgency Musc Denies arthralgias, Denies joint swelling, Denies numbness and Denies tingling Neuro Denies Abnormal speech present, Denies behavioral changes, Denies vertigo, Denies dizziness, Denies headache(s), Denies loss of vision, Denies memory loss, Denies numbness and Denies tingling Psych Denies anxiety, Denies behavioral changes, Denies depression, Denies memory loss and Denies panic attacks Pedro/Lymph Denies easy bleeding and Denies easy bruising Aller/Immun Denies wheezing Physical exam (Primary Care) Vital Signs: Last Vital Signs Temp 97.1 F 05/28/24 11:29 Pulse 66 05/28/24 11:29 BP 156/84 H 05/28/24 11:29 Pulse Ox 97 05/28/24 11:29 Oxygen Delivery Method Room Air 05/28/24 11:29 Care Plan Goal for BP management: Continue current dose of antihypertensive medication Next steps: Continue monitoring blood pressure home with goal blood pressure to be below 140/90 BMI result Body Mass Index 35.2 BMI Assessment/Plan discussion: High BMI High, discussed plan: lifestyle, weight reduction, dietary and physical activity Tobacco/Smoking Status: Tobacco use Status Tobacco use date assessed 04/11/24 05/28/24 11:34 Patient Tobacco Use Status Never used Tobacco 05/28/24 11:34 e-Cigarette/Vaping Use Never Used 05/28/24 11:34 Thrive Assessment: Date of Thrive Assessment Date Thrive assessed 04/11/24 05/28/24 11:34 Const General: healthy appearing, no acute distress, alert and awake Nutritional Appearance: well nourished Orientation/consciousness: oriented to person, oriented to place and oriented to time HENMT Ears: TM's normal bilaterally General nose exam: Normal nasal mucous membranes and turbinates present Eyes Conjunctivae: conjunctivae normal Sclerae: sclerae normal Pupils: Equal, round and reactive pupils present Neck Neck: Yes no lymphadenopathy and Yes no JVD Thyroid: Thyroid normal Carotids: no bruits Resp Effort & Inspection: normal respiratory effort and not tachypneic Auscultation: no crackles, no rales, no rhonchi and no wheezes Cardio Rate: regular rate Rhythm: regular rhythm Heart sounds: no murmurs and normal S1 and S2 GI Palpation (GI): Soft to palpation, nontender, no hepatomegaly and no splenomegaly Auscultation: normal bowel sounds Skin General skin exam: no rashes or lesions noted and dry skin Neuro General: oriented to person, oriented to place and oriented to time Cranial nerves: Yes Equal, round and reactive pupils present Speech: No Abnormal speech present Gait exam (Neuro): Normal gait present Motor exam (neuro): no tremor noted Extrem Right upper extremity: full ROM Left upper extremity: full ROM Right lower extremity: full ROM; no edema Left lower extremity: full ROM; no edema Psych Mental Status: mental status grossly normal Speech and movement: Normal speech and movement present Affect: normal affect Attitude: cooperative Thought process: Normal thought process present Coding Level of Care Code Est Pt Level 4 (20855) Diagnoses Primary hypertension I10 Hypertension type: primary hypertension Mixed hyperlipidemia E78.2 Hyperlipidemia type: mixed hyperlipidemia Class 2 obesity E66.812 Assessment & Plan Assessment & Plan (1) Hypertension: Code(s): I10 - Essential (primary) hypertension Category: Medical Qualifiers: Hypertension type: primary hypertension Qualified Code(s): I10 - Essential (primary) hypertension Plan: Patient's blood pressure slightly elevated today in office. She is a bit under distress due to a recent close friend passing away. She reports her blood pressures are usually 130 systolic. Will hold off on changing her blood pressure med regime and advised to continue monitoring. Goal blood pressures is to be below 140/90 (2) Hyperlipidemia: Code(s): E78.5 - Hyperlipidemia, unspecified Category: Medical Qualifiers: Hyperlipidemia type: mixed hyperlipidemia Qualified Code(s): E78.2 - Mixed hyperlipidemia Plan: Patient's most recent lipid panel showing better control over total cholesterol and LDL. She continues on lovastatin with good effect. Goal LDL to remain below 130 (3) Class 2 obesity: Code(s): E66.812 - Obesity, class 2 Category: Medical Plan: Patient does understand her BMI is over 35 work on being more physically active and adapting to better eating habits to reduce her weight Orders: Orders Comprehensive [place]. Panel Fast Today I10 - Essential (primary) hypertension Complete Blood Count no Diff Today I10 - Essential (primary) hypertension Lipid Panel Today E78.5 - Hyperlipidemia, unspecified Patient Instructions: Goal: Blood pressure to remain below 140/90, LDL to be below 130 Barriers: Adherence to physical activity and healthy eating habits
[2024-05-28 11:29] VITALS: BP 156/84; PULSE 66; TEMP 36.2; O2SAT 97; BMI 35.2
--- OUTSIDE RECORDS SUMMARY | 2024-05-28 13:37 | XMS_ITS ---
Author Organization [facility] Mary [place]oro Address [address] [facility] [place] [address] Care Team Providers Care Veterans Service Representative Name Role Phone Nadir Pan MD Primary Care Provider Unavaila Romeo Salgado Unavailable [phone] Allergies Allergen (clinical drug ingredient) Drug/Non Drug [...] Ordered Date Performed Result Body Sit e 78298-FXCWUCF NAIL, 6 OR MORE 02/02/2024 N/A 13664-Wyfeqvqq Plate 02/02/2024 N/A 03950-Zghdmvcq Plate Each Additional 02/02/2024 N/A 31705-SHBN SKIN LESIONS, OVER 4 02/02/2024 N/A Encounters Encounter Location Date Provider Diagnosis [facility] [place] [address] [place] [address] 02/02/2024 Romeo Laird Atherosclerosis of [place] artery of both lower extremities, with unspecified presence of clinical manifestation I70.203 ; Tinea unguium B35.1 ; Pain in right toe(s) M79.674 ; Pain in left toe(s) M79.675 and Ingrown nail L60.0 Assessments Encounter Date Diagnosis (ICD Code) Assessment Notes Treatment Notes Treatment Clinical Notes Section Notes 02/02/2024 Atherosclerosis of [place] artery of both lower extremities, with unspecified presence of clinical manifestation (ICD-10 - I70.203) 02/02/2024 Tinea unguium (ICD-10 - B35.1) 02/02/2024 Pain in right toe(s) (ICD-10 - M79.674) 02/02/2024 Pain in left toe(s) (ICD-10 - M79.675) 02/02/2024 Ingrown nail (ICD-10 - L60.0) Plan Of Treatment Pending Test Test Name Order Date 65843-IMYXNEM NAIL, 6 OR MORE 02/02/2024 08863-Bwzbaakw Plate 02/02/2024 01170-Rfgzegie Plate Each Additional 72802-LYTY SKIN LESIONS, OVER 4 02/02/20 Next Appt Details Follow Up: prn, Reason: Provider Name:Romeo Laird , 08/13/2024 02:00:00 PM, [address] [place], [address], Procedure Notes * Category Sub-Category Detail Notes [...] and future surgical procedures to prevent recurrence (25356/32), Pt CONT TO, defer matricectomy Anesthesia 2cc [...] use of a nail nipper and/or dremel-type thread grinder, to a more viable healthy nail [...] to maintain effectiveness in symptomatic relief - 75234 Keratoma Treatment Parring or Cutting o f [...] instrumentation by the physician of record - 15557, Q8 Progress Notes * Rc PIERCEtrude EDOB:1945 (78 yo F)Acc No.[id number]:02/02/2024 Progress Note Patient:?Sherry PIERCE Provider:?Romeo Laird DPM :1945???Age:78 Y???Sex:Female D ate:02/02/2024 [address] [place] Pcp:Nadir Pan MD Subjective: * Chief Complaints: [...] Assessment: 1.?Tinea unguium - B35.1???2 .?Atherosclerosis of [place] artery of both lower extremities, with unspecified presence of clinical manifestation - I70.203 (Primary)???3.?Pain in right toe(s) - M79.674???4.?Pain in left toe(s) - M79.675 ??5.?Ingrown nail - L60.0???Specify :Bilateral nail borders, TA, T5??? Plan: * Treatment: 2.?Tinea unguium?Procedure: 69932-YDSUQCC NAIL, 6 OR MORE 3.?Ingrown nail?Procedure: 79409-Tivytkdy Plate ?Procedure: 24801-Uluhswyi Plate Each Additional * Procedures:?Debride Nail 6-10:?Nail [...] use of a nail nipper and/or dremel-type thread grinder, to a more viable healthy nail [...] to maintain effectiveness in symptomatic relief - 91327.?Keratoma Treatment:?Parring or Cutting of Benign Hyperkeratotic Lesion(s)?(-57) [...] instrumentation by the physician of record - 14685, Q8.?Nail Avulsion:?Location?Bilateral nail borders, TA, T5.?Anesthesia?2cc of [...] and future surgical procedures to prevent recurrence (94303/32), Pt CONT TO, defer matricectomy.? * Procedure Codes:?99400 DEBRI DE NAIL, 6 OR MORE, Modifiers: XS 99271 Avulsion Plate, Modifiers: XS , [id number] Avulsion Plate Each Additional, Modifiers: XS , [id number] TRIM SKIN LESIONS, OVER 4, Modifiers: XS , Q8 * Follow Up:?prn * Images: * Sign off status: Completed true * Provider:?Romeo Laird DPM Date:?2023 Generated for Mariangel pa/Marni/Dillon on:?05/28/2024 01:37 PM EDT History and Physical Notes * HPI (History [...]
--- OUTSIDE RECORDS SUMMARY | 2024-05-28 13:37 | XMS_ITS ---
Author Organization [facility] Address [address] [place] [address] Care Team Providers Care Bottom Filler Name Role Phone Viviane MARK, Nadir Primary Care Provider Unavaila Romeo Salgado Unavailable [phone] Encounters Encounter Location Date Provider Diagnosis [address] [address] 02/16/2024 Romeo Laird Plan Of Treatment Next Appt Details Provider Name:Romeo Laird , 08/13/2024 02:00:00 PM, [address] [place] [address], [id number], Progress Notes * Sherry PIERCE EDOB:1945 (78 yo F)Acc No.[id number]:02/16/2024 Progress Note Patient:?Sherry PIERCE Provider:?Romeo Laird DPM :1945???Age:78 Y???Sex:Female D ate:02/16/2024 Address[address] Pcp:Nadir Pan MD Subjective: * Chief Complaints: [...]
--- OUTSIDE RECORDS SUMMARY | 2024-05-28 13:37 | XMS_ITS ---
Author Organization [facility] Mary Choeley Address [address] [facility] [place] [address] Care Team Providers Care Gymnastic Coach Name Role Phone Nadir Pan MD Primary Care Provider Unavaila Romeo Salgado Unavailable [phone] Allergies Allergen (clinical drug ingredient) Drug/Non Drug Allergy documented on EMR Reaction Allergy Type Onset Date Status Blueberry Flavor hives Drug Allergy Active REASON FOR VISIT At Risk Footcare, Painful Nail(s) aggrevated by shoes and causing difficulty standing/walking. Medications Medication SIG (Take, Route, Frequency, Duration) Notes Start Date End Date Status Ammonium Lactate 12 % 1 application Externally Twice a day for 30 days Not-Taking Lovastatin 40 MG 1 tablet with a meal Orally Once a day Active hydrOXYzine Pamoate 25 MG as directed Orally PRN Active hydroCHLOROthiazide 25 MG 1 tablet Orall y Once a day Active Flonase PRN Active traMADol HCl Not-Robert ing Eszopiclone 2 MG Orally Not -Taking Diltiazem HCl CD Act anabel Acetaminophen-Codeine 300-30 MG 1 tablet as needed Orally every 6 hrs PRN Active Ciclopirox Olamine 0.77 % 1 application Externally Twice a day for 30 days Active Allopurinol 300 MG as directed Orally PRN Not-Taking Butalbital-Acetaminophen Not-Taking ZyrTEC Allergy Not-T aking Hydrocortisone 2.5 % as directed Externally Twice a day for 30 days Not-Taking amLODIPine Besylate 5 MG 1 tablet Orally Once a day Not-Taking zzzCompression Stockings 20-30mm Hg . . . for . Not-Taking Social History Tobacco Use: Social History Observation Description Date Details (start date - stop date) Never Smoker NA - NA Tobacco use other than smoking: Question Answer Notes Are you an other tobacco user? No Tobacco Control (Standard) Question Answer Notes Tobacco use: Nonsmoker Additional Findings: Tobacco non-user Current no nsmoker AUDIT-C (Standard) Question Answer Notes Did you have a drink containing alcohol in the p ast year? No Points 0 Interpretation Negative Vital Signs Height 5ft 7in in 05/14/2024 Weight 230 lbs 05/14/2024 BMI 36.02 kg/m2 05/14/2024 Blood pressure systolic 130 mm Hg 05/15/19 Blood pressure diastolic 70 mm Hg 025 Procedures Procedure Date Ordered Date Performed Result Body Sit e 39395-UJUABSP NAIL, 6 OR MORE 05/14/2024 N/A 91573-QYEY SKIN LESIONS, OVER 4 05/14/2024 N/A Encounters Encounter Location Date Provider Diagnosis [facility] [place] [address] [place] [address] 05/14/2024 Romeo Laird Atherosclerosis of [place] artery of both lower extremities, with unspecified presence of clinical manifestation I70.203 ; Tinea unguium B35.1 ; Pain in right toe(s) M79.674 and Pain in left toe(s) M79.675 Assessments Encounter Date Diagnosis (ICD Code) Assessment Notes Treatment Notes Treatment Clinical Notes Section Notes 05/14/2024 Atherosclerosis of [place] artery of both lower extremities, with unspecified presence of clinical manifestation (ICD-10 - I70.203) 05/14/2024 Tinea unguium (ICD-10 - B35.1) 05/14/2024 Pain in right toe(s) (ICD-10 - M79.674) 05/14/2024 Pain in left toe(s) (ICD-10 - M79.675) Plan Of Treatment Pending Test Test Name Order Date 05733-YNOLUSM NAIL, 6 OR MORE 05/14/2024 96542-TEJV SKIN LESIONS, OVER 4 05/15/19 Next Appt Details Follow Up: prn, Reason: Provider Name:Romeo Laird , 08/13/2024 02:00:00 PM, [address] [place], [address], Procedure Notes * Category Sub-Category Detail Notes Debride Nail 6-10 Nail debridement Due to the cl inical pathology outlined in the exam findings, performance of this nail treatment is medically necessary as its management by an unskilled/untrained nonprofessional would put this patients foot and overall health at risk. Therefore, debridement to affected nail(s), as described in exam ( T1, T2, T3, T4, T6, T7, T8, T9 ), was performed exclusively by the physician of record to reduce/remove overall nail length, girth, thickness, subungual debris, and necrotic tissue, by manual and/or electrical means through the use of a nail nipper and/or dremel-type grinder mill operator, to a more viable healthy nail plate [...] to maintain effectiveness in symptomatic relief - 74753 Keratoma Treatment Parring or Cutting o f [...] risk. Therefore, the benign hyperkeratotic lesions, ( 8 ) in total, locations as stated and described in the exam ( SUB MTH (s), 1, B/L, SUB MTH (s), 3, Left, SUB MTH (s), 4, Left, SUB MTH (s), 5, B/L, Plantar, Heel(s), B/L ), were pared, and/or cut utilizing a sterile 15 blade, tissue nippers, and/or power dremel instrumentation by the physician of record - 85358, Q8 Progress Notes * Sherry PIERCE EDOB:1945 (78 yo F)Acc No.[id number]:05/14/2024 Progress Note Patient:?Sherry PIERCE Provider:?Romeo Laird DPM :1945???Age:78 Y???Sex:Female D ate:05/14/2024 Address:[address] Pcp:Nadir Pan MD Subjective: * Chief Complaints: * ???At Risk FootcarePainful N ail(s) aggrevated by shoes and causing difficulty standing/walking. * HPI: ???At Risk footcare:?Pt States Last [...] essential hypertension.?Father: , foot problems, diagnosed with Unspecified cerebral artery occlusion with cerebral infarction, Family history of arthritis.?Spouse: alive.? * Social History:?Tobacco Use:?Tobacco use other than smoking?Are you an other tobacco user??No ?Tobacco Control (Standard)?Tobacco use:?Nonsmoker ?Additional Findings: Tobacco non-user?Current nonsmoker ???Drugs/Alcohol:?Drugs?Have you used drugs other than those for medical reasons in the past 12 months??No ???Miscellaneous:?Caffeine: yes, frequency:, 2-3 cups per day. ?Children: yes. ?Exercise: yes, exercise at home , PT Hip. ?Marital status: . ?Occupation: Works Part-time, Retired. ???Drug/Alcohol:?AUDIT-C (Standard)?Did you have a drink containing alcohol in the past year??No ?Points?0 ?Interpretation?Negative * Medications:?TakingCiclopiro x Olamine 0.77 % Cream [...] 5ft 7in, Wt:230, BMI: 36.02, Shoe size:10, BP:130/70mm Hg, Ht-cm: 170.18 cm, Wt-k.33 kg. * Examination: ???Vascular: ?DP PULSES (B):?1/4, B/L.?PT PULSES (B):? 0/4, B/L.?CAPILLARY FILL TIME:? delayed, all digits, B/L.?TROPHIC CONDITION-TEXTURE/ELASTICITY/TURGOR/HAIR GROWTH (B):? decreased, with sparse to absent hair growth, B/L.?TEMPERTURE GRADIENT (C):? decreased, cool to cool, proximal to distal, B/L.?PIGMENTATION:?mottled, B/L.?EDEMA (C):?1/4 , non-pitting , without aching pain , Leg(s) , Ankle(s) , Foot , B/L.?CLAUDICATION (C):?denies, B/L.?REST PAIN:?denies, B/L.?Nails: ?NAILS are:?Elongated, overgrown, dystrophic, [...] SUB MTH (s), 5, B/L, Plantar, Heel(s), B/L.? Assessment: * Assessment: 1.?Tinea unguium - B35.1???2 .?Atherosclerosis of [place] artery of both lower extremities, with unspecified presence of clinical manifestation - I70.203 (Primary)???3.?Pain in right toe(s) - M79.674???4.?Pain in left toe(s) - M79.675??? Plan: * Treatment: 2.?Tinea unguium?Procedure: 48809-GUWADJD NAIL, 6 OR MORE * Procedures:?Debride Nail 6-10:?Nail debridement?Due to the clinical pathology outlined in the exam findings, performance of this nail treatment is medically necessary as its management by an unskilled/untrained nonprofessional would put this patients foot and overall health at risk. Therefore, debridement to affected nail(s), as described in exam (?T1,?T2,?T3,?T4,?T6,?T7,?T8,?T9?), was performed exclusively by the physician of record to reduce/remove overall nail length, girth, thickness, subungual debris, and necrotic tissue, by manual and/or electrical means through the use of a nail nipper and/or dremel-type grinder mill operator, to a more viable healthy nail plate [...] to maintain effectiveness in symptomatic relief - 49339.?Keratoma Treatment:?Parring or Cutting of Benign Hyperkeratotic Lesion(s)?(-57) More than 4 Lesions - Due to the at risk nature of the patients medical condition as documented in the exam findings, performance of this keratoderma treatment is medically necessary as its management by an unskilled/untrained nonprofessional would put this patients foot and overall health at risk. Therefore, the benign hyperkeratotic lesions, ( 8 ) in total, locations as stated and described in the exam (?SUB MTH (s),?1,?B/L,?SUB MTH (s),?3,?Left,?SUB MTH (s),?4,?Left,?SUB MTH (s),?5,?B/L,?Plantar,?Heel(s),?B/L?), were pared, and/or cut utilizing a sterile 15 blade, tissue nippers, and/or power dremel instrumentation by the physician of record - 96179, Q8.? * Procedure Codes:?88902 DEBRI DE NAIL, 6 OR MORE, Modifiers: XS 86704 TRIM SKIN LESIONS, OVER 4, Modifiers: XS , Q8 * Follow Up:?prn * Images: * Sign off status: Completed true * Provider:?Romeo Laird DPM Date:?2024 Generated for Mariangel pa/Marni/Dillon on:?05/28/2024 01:37 PM EDT History and Physical Notes * HPI (History of Present Illness) Category Sub-Category Detail Notes Category Not es At Risk footcare Pt States Last PCP Visit: Date: 4 Examination Category Sub-Category Detail Notes Category Not es Dermatologic SKIN FINDINGS: Skin exam reveal s [...]
--- OUTSIDE RECORDS SUMMARY | 2024-05-28 13:37 | XMS_ITS | Patient Health Record ---
Author Organization [facility] Mary giselle Lyle Address [address] [place] [address] Care Team Providers Care Admissions Nurse Name Role Phone Viviane MARK, Nadir Primary Care Provider UnavailRomeo Conroy Unavailable [phone] Thelma Oakley Unavailable [phone] Allergies Allergen (clinical drug ingredient) Drug/Non Drug Allergy documented on EMR Reaction Allergy Type Onset Date Status Blueberry Flavor hives Drug Allergy Active Reason For Referral No Information Medications Medication SIG (Take, Route, Frequency, Duration) Notes Start Date End Date Status Allopurinol 300 MG as directed Orally PRN Not-Taking zzzCompression Stockings 20-30mm Hg . . . for . Not-Taking Ammonium Lactate 12 % 1 application Externally Twice a day for 30 days Not-Taking Lovastatin 40 MG 1 tablet with a meal Orally Once a day Active hydrOXYzine Pamoate 25 MG as directed Orally PRN Active hydroCHLOROthiazide 25 MG 1 tablet Orall y Once a day Active traMADol HCl Not-Robert ing Flonase PRN Active Eszopiclone 2 MG Orally Not -Taking Diltiazem HCl CD Act anabel Butalbital-Acetaminophen Not-Taking Acetaminophen-Codeine 300-30 MG 1 tablet as needed Orally every 6 hrs PRN Active ZyrTEC Allergy Not-T aking Ciclopirox Olamine 0.77 % 1 application Externally Twice a day for 30 days Active Hydrocortisone 2.5 % as directed Externally Twice a day for 30 days Not-Taking amLODIPine Besylate 5 MG 1 tablet Orally Once a day Not-Taking Immunizations Vaccine Route Administration Date Status [...] ast year? No Points 0 Interpretation Negative Problems Problem Type SNOMED Code ICD Code Onset Dates Problem Status W/U Status Risk Notes Problem Atherosclerosis of southern [place] arteries of the extremities ([id number]) Atherosclerosis of southern ute artery of both lower extremities, with unspecified presence of clinical manifestation (I70.203) Active confirmed Vital Signs Blood pressure diastolic 70 mm Hg 05/14/2024 Height 5ft 7in in 05/14/2024 Blood pressure systolic 130 mm Hg 05/14/2024 Weight 230 lbs 05/14/2024 BMI 36.02 kg/m2 05/14/2024 Procedures Procedure Date Ordered Date Performed Result Body Sit e 26886-HMBZBCM NAIL, 6 OR MORE 06/23/2023 N/A 92510-Bheq Destruction, 1-14 06/23/2023 N/A 11716-Bzcpkkmk Plate 06/23/2023 N/A 34198-Buvkydeg Plate Each Additional 06/23/2023 N/A 07057-UWGFLQL NAIL, 6 OR MORE 09/01/2023 N/A 35384-Voqreere Plate 09/01/2023 N/A 78100-Rxidztos Plate Each Additional 09/01/2023 N/A 61133-GTXI SKIN LESIONS, OVER 4 09/01/2023 N/A 61828-GHYUNBM NAIL, 6 OR MORE 11/14/2023 N/A 81659-Afkdudni Plate 11/14/2023 N/A 00542-Caedtscm Plate Each Additional 11/14/2023 N/A 43447-LBSH SKIN LESIONS, OVER 4 11/14/2023 N/A 75961-YBOXOSZ NAIL, 6 OR MORE 02/02/2024 N/A 82033-Apnvptib Plate 02/02/2024 N/A 49214-Jzmcospv Plate Each Additional 02/02/2024 N/A 40188-DKWM SKIN LESIONS, OVER 4 02/02/2024 N/A 33675-ZDQDVLD NAIL, 6 OR MORE 05/14/2024 N/A 64240-DFTF SKIN LESIONS, OVER 4 05/14/2024 N/A Encounters Encounter Location Date Provider Diagnosis [address] [address] 06/23/2023 Romeo Laird Tinea unguium B35.1 ; Pain in right toe(s) M79.674 ; Pain in left toe(s) M79.675 ; Ingrowing nail L60.0 ; Plantar wart B07.0 and Pain in right foot M79.[address] [address] 09/01/2023 Romeo Laird Atherosclerosis of southern [place] artery of both lower extremities, with unspecified presence of clinical manifestation I70.203 ; Tinea unguium B35.1 ; Pain in right toe(s) M79.674 ; Pain in left toe(s) M79.675 ; Ingrown nail L60.0 and Tinea pedis of both feet B35.[address] [address] 11/14/2023 Romeo Laird Atherosclerosis of southern ute artery of both lower extremities, with unspecified presence of clinical manifestation I70.203 ; Tinea unguium B35.1 ; Pain in right toe(s) M79.674 ; Pain in left toe(s) M79.675 ; Ingrown nail L60.0 and Tinea pedis of both feet B35.[address] [address] 02/02/2024 Romeo Laird Atherosclerosis of southern ute artery of both lower extremities, with unspecified presence of clinical manifestation I70.203 ; Tinea unguium B35.1 ; Pain in right toe(s) M79.674 ; Pain in left toe(s) M79.675 and Ingrown nail L60.0 [facility] [address] [address] 05/14/2024 Romeo Laird Atherosclerosis of southern ute artery of both lower extremities, with unspecified presence of clinical manifestation I70.203 ; Tinea unguium B35.1 ; Pain in right toe(s) M79.674 and Pain in left toe(s) M79.[address] [address] 01/30/2024 Romeo Laird Assessments Encounter Date Diagnosis (ICD Code) Assessment Notes Treatment Notes Treatment Clinical Notes Section Notes 06/23/2023 Tinea unguium (ICD-10 - B35.1) 06/23/2023 Pain in right toe(s) (ICD-10 - M79.674) 09/01/2023 Tinea unguium (ICD-10 - B35.1) 09/01/2023 Atherosclerosis of southern ute artery of both lower extremities, with unspecified presence of clinical manifestation (ICD-10 - I70.203) 11/14/2023 Tinea unguium (ICD-10 - B35.1) 11/14/2023 Atherosclerosis of southern ute artery of both lower extremities, with unspecified presence of clinical manifestation (ICD-10 - I70.203) 02/02/2024 Tinea unguium (ICD-10 - B35.1) 02/02/2024 Atherosclerosis of southern ute artery of both lower extremities, with unspecified presence of clinical manifestation (ICD-10 - I70.203) 05/14/2024 Tinea unguium (ICD-10 - B35.1) 05/14/2024 Atherosclerosis of southern ute artery of both lower extremities, with unspecified presence of clinical manifestation (ICD-10 - I70.203) 05/14/2024 Pain in right toe(s) (ICD-10 - M79.674) 02/02/2024 Pain in right toe(s) (ICD-10 - M79.674) 11/14/2023 Pain in right toe(s) (ICD-10 - M79.674) 09/01/2023 Pain in right toe(s) (ICD-10 - M79.674) 06/23/2023 Pain in left toe(s) (ICD-10 - M79.675) 06/23/2023 Ingrowing nail (ICD-10 - L60.0) 09/01/2023 Pain in left toe(s) (ICD-10 - M79.675) 11/14/2023 Pain in left toe(s) (ICD-10 - M79.675) 02/02/2024 Pain in left toe(s) (ICD-10 - M79.675) 05/14/2024 Pain in left toe(s) (ICD-10 - M79.675) 06/23/2023 Plantar wart (ICD-10 - B07.0) 02/02/2024 Ingrown nail (ICD-10 - L60.0) 11/14/2023 Ingrown nail (ICD-10 - L60.0) 09/01/2023 Ingrown nail (ICD-10 - L60.0) 06/23/2023 Pain in right foot (ICD-10 - M79.671) 11/14/2023 Tinea pedis of both feet (ICD-10 - B35.3) 09/01/2023 Tinea pedis of both feet (ICD-10 - B35.3) Plan Of Treatment Pending Test Test Name Order Date 65259-ASETQEX NAIL, 6 OR MORE 05/08/2015 38634-GAFMTUI NAIL, 6 OR MORE 08/14/2015 29431-XTIRMTY NAIL, 6 OR MORE 11/13/2015 27611-BURNVFS NAIL, 6 OR MORE 02/05/2016 55275-BCXXUKY NAIL, 6 OR MORE 04/29/2016 22945-HQLNICF NAIL, 6 OR MORE 07/29/2016 16999-IUVTGXN NAIL, 6 OR MORE 10/28/2016 29629-WERHWNY NAIL, 6 OR MORE 01/27/2017 27648-ERMSGNW NAIL, 6 OR MORE 05/05/2017 48680-PABKPQY NAIL, 6 OR MORE 07/07/2017 79420-ZVRHOWO NAIL, 6 OR MORE 09/26/2017 34766-UYDGWWJ NAIL, 6 OR MORE 12/19/2017 92307-VCPOOKM NAIL, 6 OR MORE 03/30/2018 68814-DTNWFWZ NAIL, 6 OR MORE 06/26/2018 08223-OBNWUSV NAIL, 6 OR MORE 09/11/2018 64626-ESFSYDK NAIL, 6 OR MORE 11/30/2018 92973-SETFBJB NAIL, 6 OR MORE 02/26/2019 74627-IFVJVZZ NAIL, 6 OR MORE 04/30/2019 27762-RCPVUAP NAIL, 6 OR MORE 08/02/2019 95939-OAEQIHK NAIL, 6 OR MORE 10/11/2019 35526-STOTFVL NAIL, 6 OR MORE 12/24/2019 81268-YDNKRAN NAIL, 6 OR MORE 03/17/2020 16669-ALCWJCW NAIL, 6 OR MORE 06/02/2020 62329-TQXBDYH NAIL, 6 OR MORE 08/11/2020 01433-ADEJNJW NAIL, 6 OR MORE 11/10/2020 99296-PHYXXWM NAIL, 6 OR MORE 01/22/2021 48009-HDKMFVE NAIL, 6 OR MORE 04/06/2021 59656-DZIHTFC NAIL, 6 OR MORE 06/08/2021 27637-USXQZST NAIL, 6 OR MORE 08/20/2021 88241-JHXTBYE NAIL, 6 OR MORE 11/09/2021 14370-NCVKOQF NAIL, 6 OR MORE 01/25/2022 08175-OXCSUSP NAIL, 6 OR MORE 04/12/2022 13572-SGKICGF NAIL, 6 OR MORE 06/24/2022 95846-TPGSSXO NAIL, 6 OR MORE 09/02/2022 26868-MVSUKFV NAIL, 6 OR MORE 11/15/2022 38555-KGCNSDV NAIL, 6 OR MORE 01/31/2023 11687-CLBZFFT NAIL, 6 OR MORE 04/18/2023 99311-CVBVVZE NAIL, 6 OR MORE 06/23/2023 24315-DCOCVRA NAIL, 6 OR MORE 09/01/2023 49423-QOLPAQK NAIL, 6 OR MORE 11/14/2023 92728-XHODMUG NAIL, 6 OR MORE 02/02/2024 51214-VNUSZWT NAIL, 6 OR MORE 05/14/2024 81258-Llhm Destruction, 1-14 04/06/2021 98969-Hzng Destruction, 1-14 06/08/2021 84257-Zisy Destruction, 1-06/23/2023 25013-Jgtk Destruction, 1-04/18/2023 18270-Rnfx Destruction, 1-14 01/31/2023 05041-Vgjr Destruction, 03-0511/15/2022 67065-Gngt Destruction, 03-0509/02/2022 62651-Mizj Destruction, 03-0506/24/2022 47583-Obmz Destruction, 03-0504/12/2022 00343-Gqfm Destruction, 03-0501/25/2022 48505-Ahrm Destruction, 03-0511/09/2021 38160-Yywc Destruction, 03-0508/20/2021 27248-Wgjo Destruction, 03-0511/10/2020 91564-Xcty Destruction, 03-0501/22/2021 98177-Ilin Destruction, 03-0506/02/2020 91977-Mxzx Destruction, 03-0508/11/2020 29129-Vsgi Destruction, 03-0503/17/2020 81654-Iopl Destruction, 03-0510/11/2019 48436-Clbi Destruction, 03-0512/24/2019 35048-Kwpe Destruction, 03-0504/30/2019 24024-Ucsw Destruction, 03-0508/02/2019 44598-Wlqk Destruction, 03-0511/30/2018 29288-Fiii Destruction, 03-0502/26/2019 68945-Sfzi Destruction, 03-0506/26/2018 43424-Bvuq Destruction, 03-0509/11/2018 48621-Jtyj Destruction, 03-0503/30/2018 53096-Lrkw Destruction, 03-0512/19/2017 76679-Vlvo Destruction, 03-0509/26/2017 90212-Fsyi Destruction, 03-0507/07/2017 94251-Bqip Destruction, 03-0501/27/2017 93889-Fhvy Destruction, 03-0505/05/2017 95705-Dndz Destruction, 03-0510/28/2016 02389-Spah Destruction, 03-0507/29/2016 80703-Hhefpfqe Plate 10/28/2016 93489-Fzxzjpgw Plate 01/27/2017 36808-Bntdgzve Plate 04/29/2016 77387-Cheuazxt Plate 07/29/2016 98807-Nfgtnwwf Plate 02/05/2016 96224-Bscwfsuw Plate 07/07/2017 30019-Cehjrdgr Plate 09/26/2017 62287-Pzaslfso Plate 12/19/2017 04641-Kgdjivby Plate 03/30/2018 68159-Sugxogqk Plate 06/26/2018 04870-Jxcejqzp Plate 09/11/2018 95159-Rqjzcnls Plate 11/30/2018 36416-Gtyrhevc Plate 02/26/2019 71646-Pbiblqxk Plate 10/11/2019 41221-Rchufsfz Plate 08/02/2019 22160-Fzcczzxq Plate 04/30/2019 62858-Oosnkxhe Plate 12/24/2019 05375-Xndnbcjo Plate 03/17/2020 05125-Ritdicta Plate 11/10/2020 91305-Vrixkjbm Plate 08/11/2020 56614-Hvtmpojq Plate 06/02/2020 29071-Dpykvbpk Plate 01/22/2021 30461-Tkjnttcc Plate 06/08/2021 57581-Xojbqaxf Plate 04/06/2021 52903-Ytjyntcx Plate 08/20/2021 88098-Qnrmqkgr Plate 11/09/2021 37844-Zmlhzbxl Plate 01/25/2022 15823-Qxufcaty Plate 04/12/2022 34374-Geqweplc Plate 06/24/2022 01419-Uoyicxmm Plate 09/02/2022 43183-Hmzymugu Plate 11/15/2022 54528-Isvserfo Plate 01/31/2023 31165-Wqvfoxmr Plate 04/18/2023 20888-Ccpzdcsi Plate 06/23/2023 44113-Fayedpiv Plate 11/14/2023 50836-Txbzvuby Plate 09/01/2023 55040-Cdweeyai Plate 02/02/2024 06131-Mbswjseh Plate Each Additional 50850-Ccarikup Plate Each Additional 01/2024 02408-Lkmetojr Plate Each Additional 60083-Dwivvech Plate Each Additional 04/2023 65015-Fusarbpu Plate Each Additional 17485-Evcqqqrk Plate Each Additional 01/2023 14761-Eyxyvbgd Plate Each Additional 71469-Tzwesyyz Plate Each Additional 29841-Rtiiusjl Plate Each Additional 06/2022 39074-Fbuevhjd Plate Each Additional 27193-Yboxgzir Plate Each Additional 07/2021 84150-Hcaohkux Plate Each Additional 93453-Ejxjcusu Plate Each Additional 02/2021 96081-Swiwccfi Plate Each Additional 74149-Exoqdlhq Plate Each Additional 17559-Fyqiypam Plate Each Additional 04/2020 25674-Jqcgnueb Plate Each Additional 53933-Yzupwtbs Plate Each Additional 84135-Mlzspoqn Plate Each Additional 50802-Mvggqafk Plate Each Additional 89491-Budbovae Plate Each Additional 04/2019 45731-Beydutux Plate Each Additional 11/2019 26757-Iddhoskz Plate Each Additional 01/2020 28471-Akyqdigh Plate Each Additional 28826-Qlxovhso Plate Each Additional 08/2019 33505-Frbnblen Plate Each Additional 12/2018 35303-Rjxzxmsj Plate Each Additional 79341-Iewrquqw Plate Each Additional 08/2018 38934-Ocdmutth Plate Each Additional 09/2018 69285-Kssrwido Plate Each Additional 85721-Rjjosplz Plate Each Additional 08/2017 15136-Ydyrteqn Plate Each Additional 03020-Dgpvgdqz Plate Each Additional 09/2016 92310-Arbvbhfh Plate Each Additional 09/2016 88245-UKZH SKIN LESIONS, OVER 4 11/14/19 24 63068-BQLI SKIN LESIONS, OVER 4 09/01/19 73448-VWWX SKIN LESIONS, OVER 4 02/02/20 24 13672-KXIH SKIN LESIONS, OVER 4 05/15/19 Next Appt Details Provider Name:Romeo Laird , 08/13/2024 02:00:00 PM, [address] [facility] [address], [place], [address], Insurance Providers Payer Name Payer Address Payer Phone Subscriber Number Group Number Insured Name Patient Relationship to Insured Coverage Start Date Coverage End Date [employer] Medicare Adv-28888 [address] [address] [place] [address] [id number] Sherry Pierce Self - patient is the insured Medical (General) History Medical History History ICD Code Arthritis Headaches Migraines High blood pressure Measles Mumps Chicken pox Cholesterol Surgical History Surgery Date(Month/Year) appendectomy 1957 skin graft 1959 hysterectomy 1981 left hip replacement 06/2009 right knee replacement 04/2009 colonoscopy R hip replacement 01/03/2022 Hospitalization History Reason Date(Month/Year) PCP/[facility] - Fainted in store d ue to dehydration hit head test done all clear 07/2021
== END 2024-05-28 12:01 | disposition home or self-care (01) ==
PROVIDERS: PCP Internal Medicine; Visit Provider Physician Assistant
DX: I10 Essential (primary) hypertension (principal); E78.2 Mixed hyperlipidemia; E66.812 Obesity, class 2; Z68.35 Body mass index [BMI] 35.0-35.9, adult

== ENCOUNTER → 2024-05-28 11:11 | Outpatient (BNVA) | payer MEDICARE, SELFPAY | PROVIDERS: PCP Internal Medicine; Visit Provider Physician Assistant | DX: I10 Essential (primary) hypertension (principal); E78.2 Mixed hyperlipidemia; E66.812 Obesity, class 2; Z68.35 Body mass index [BMI] 35.0-35.9, adult | CPT/HCPCS: 99212 ==

== ENCOUNTER 2024-08-21 10:18 | Outpatient (AMB) | payer MEDICARE, SELFPAY ==
--- OUTSIDE RECORDS SUMMARY | 2024-02-16 04:45 | XMS_ITS ---
Author Organization [facility] Address [address] [place] [address] Care Team Providers Care Senior Brand Manager Name Role Phone Franko Todd Primary Care Provider Unavailab Romeo Nunez Unavailable [phone] Encounters Encounter Location Date Provider Diagnosis [address] [address] 02/16/2024 Romeo Laird Plan Of Treatment Next Appt Details Provider Name:Romeo Laird , 11/15/2024 09:00:00 AM, [address] [place] [address], [phone], Progress Notes * Sherry PIERCE EDOB:1945 (78 yo F)Acc No.[id number]:02/16/2024 Progress Note Patient: Sherry JEWELL Provider: No Laird DPM :1945 A ge:78 Y S ex:Female Date:02/16/2024 Address:[address] [place] Pcp:Franko Todd Subjective: * Chief Complaints: * [...] Date: 04/18/2023 Generated for Mariangel Adams on: 08/21/2024 10:53 AM EDT
--- NOTE | 2024-08-21 10:22 | A.OFFPC_ITS ---
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 Required: No Accompanied by: Self / Same As Patient Allergies amlodipine Adverse Reaction (Intermediate, Verified 08/21/24 10:47) Dizziness Medication List - Last Reconciled 08/21/24 by Franko Todd PA-C acetaminophen-codeine 300-30 mg 1 - 2 tabs PO Q8H PRN ciclopirox 0.77% 1 appl topical ONCE diltiazem HCl CD 180 mg PO DAILY hydrochlorothiazide 25 mg PO DAILY 90 days hydroxyzine pamoate 25 mg PO QID PRN lovastatin 40 mg PO DAILY Tobacco use date assessed: 04/11/24 Dental Screening Dental Screen Date: 04/11/24 HPI f/u HLD/ HTN HPI Details Patient is a 78-year-old female here today for a follow-up visit . Patient has a past medical history significant for hyperlipidemia, hypertension, class 2 obesity. .. Hypertension: Patient's blood pressure today in office elevated, she stays pret ty consistent with the use of her diltiazem and hydrochlorothiazide. She is not regularly monitoring her blood pressure She usually reports her blood pressures are 130 systolic. She otherwise denies any chest pain, dizziness, headache or shortness of breath. .. Systolic murmur: Have noted a systolic murmur today's physical exam, she is aware of this as this was noted prior to her knee surgery in 2022. Patient has no overt signs of Congestive heart failure.. Will send for echocardiogram to evaluate the extent of her valvular dysfunction .. Hyperlipidemia: Continues on lovastatin most recent lipid panel showing much better control over total cholesterol and LDL. Laboratory Tests 12/20/23 04/11/24 06:46 08:06 RBC 4.84 Creatinine 0.84 AST 33 H ALT 19 Cholesterol 208 H 169 LDL Cholesterol, C alc 130 H 106 H TSH 1.49 PFSH Medical History Rash Hyperlipidemia Obesity Hypertension Annual physical exam Surgical History History of right hip replacement History of arthroplasty of left hip History of rectal polypectomy History of arthroplasty of right knee History of hysterectomy History of appendectomy Family History Father No problems noted. Mother No problems noted. Social History Housing: House Alcohol intake: never Patient Tobacco Use Status: Never used Tobacco e-Cigarette/Vaping Use: Never Used Second Hand Smoke Exposure: No service: No Current occupational status: retired Cognitive needs: No Hearing needs: No Vision needs: No Questionnaire PHQ-9 Over the last 2 weeks, how often have you been bothered by any of the following problems? 1. Little interest or pleasure in doing things: not at all 2. Feeling down, depressed, or hopeless: not at all 3. Trouble falling or staying asleep, or sleeping too much: not at all 4. Feeling tired or having little energy: not at all 5. Poor appetite or overeating: not at all 6. Feeling bad about yourself - or that you are a failure or have let yourself or your family down: not at all 7. Trouble concentrating on things, such as reading the newspaper or watching television: not at all 8. Moving or speaking so slowly that other people could have noticed. Or the opposite - being so fidgety or restless that you have been moving around a lot more than usual: not at all 9. Thoughts that you would be better off or of hurting yourself in some way: not at all Total score: 0 Depression Screening Interpretation: Negative Depression Screening Done: Yes 31075 - PHQ-9 Billing: Yes Source: Developed by Drs. Tj Arias, Gabriella Fan, Ronni Santana and colleagues, with an educational ana from [employer]. Thrive Questionnaire Date Thrive assessed: 08/21/24 I am a: Patient What is your living situation today?: I have a steady place to live Within the past 12 months, did the food you bought not last and you didn't have the money to get more?: Never true Within the past 12 months, did you worry whether your food would run out before you got money to buy more?: Never true Do you have trouble paying for medicines?: No Do you have trouble getting transportation to medical appointments?: No Do you have trouble paying your heating and electricity bill?: No Do you have trouble taking care of your child, family member or friend?: No Do you have trouble with day-to-day activities such as bathing, preparing meals, shopping, managing finances, etc.?: No Are you currently unemployed and looking for a job?: No Are you interested in more education?: No Please select the resources that you would like help with: None Currently or been in a relationship where the following occur: No concerns reported THRIVE Score: 0 AUDIT C Alcohol Use Questionnaire (AUDIT-C) 1. How often do you have a drink containing alcohol?: Monthly or less 2. How many drinks containing alcohol do you have on a typical day when you are drinking?: 1 or 2 3. How often do you have six or more drinks on one occasion?: Never Total Score: 1 ROS-7 AMB Questionnaire ROS-7 Date ROS - 7 assessed: 08/21/24 Feeling nervous, anxious, or on edge: 0 = Not at all Not being able to stop or control worryin = Not at all Worrying too much about different things: 0 = Not at all Trouble relaxin = Not at all Being so restless that it is hard to sit still: 0 = Not at all Becoming easily annoyed or irritable: 0 = Not at all Feeling afraid as if something awful might happen: 0 = Not at all Total ROS-7 score (0-4 normal; 5-9 mild; 10-14 moderate; 15-21 severe): 0 Source: Developed by Drs. Tj Arias, Gabriella Fan, Ronni Santana and colleagues, with an educational ana from [employer]. ROS-7 Assessment Billing ROS-7 Assessment Tool: ROS-7 Assessment 01804 Review of Systems Const Denies headache(s) Eyes Denies loss of vision ENT Denies vertigo, Denies dizziness, Denies headache(s) and Denies sore throat Card Denies chest pain, Denies leg edema and Denies lightheadedness Resp Denies cough, Denies hemoptysis and Denies wheezing GI Denies abdominal pain, Denies melena, Denies constipation, Denies diarrhea and Denies vomiting Denies urinary frequency, Denies dysuria and Denies urinary urgency Musc Denies arthralgias, Denies joint swelling, Denies numbness and Denies tingling Neuro Denies Abnormal speech present, Denies behavioral changes, Denies vertigo, Denies dizziness, Denies headache(s), Denies loss of vision, Denies memory loss, Denies numbness and Denies tingling Psych Denies anxiety, Denies behavioral changes, Denies depression, Denies memory loss and Denies panic attacks Pedro/Lymph Denies easy bleeding and Denies easy bruising Aller/Immun Denies wheezing Physical exam (Primary Care) Vital Signs: Last Vital Signs Pulse 96 08/21/24 10:24 BP 152/70 H 08/21/24 10:24 Pulse Ox 99 08/21/24 10:24 Oxygen Delivery Method Room Air 08/21/24 10:24 Care Plan Goal for BP management: Will continue diltiazem and hydrochlorothiazide, patient will start monitoring closely her blood pressure. Next steps: Monitor blood pressure closely at home, consider starting lisinopril or losartan her legs visit. BMI result Body Mass Index 35.3 BMI Assessment/Plan discussion: High BMI High, discussed plan: lifestyle, weight reduction, dietary and physical activity Tobacco/Smoking Status: Tobacco use Status Tobacco use date assessed 04/11/24 08/21/24 10:26 Patient Tobacco Use Status Never used Tobacco 08/21/24 10:26 e-Cigarette/Vaping Use Never Used 08/21/24 10:26 PHQ-9: PHQ-9 Score PHQ-9: Total score 0 08/21/24 10:30 Depression Screening Interpretation: Negative Thrive Assessment: Date of Thrive Assessment Date Thrive assessed 08/21/24 08/21/24 10:26 Currently or been in a relationship where the following occur: No concerns reported Const General: healthy appearing, no acute distress, alert and awake Nutritional Appearance: well nourished Orientation/consciousness: oriented to person, oriented to place and oriented to time HENMT Ears: TM's normal bilaterally General nose exam: Normal nasal mucous membranes and turbinates present Eyes Conjunctivae: conjunctivae normal Sclerae: sclerae normal Pupils: Equal, round and reactive pupils present Neck Neck: Yes no lymphadenopathy and Yes no JVD Thyroid: Thyroid normal Carotids: no bruits Resp Effort & Inspection: normal respiratory effort and not tachypneic Auscultation: no crackles, no rales, no rhonchi and no wheezes Cardio Rate: regular rate Rhythm: regular rhythm Heart sounds: no murmurs and normal S1 and S2 GI Palpation (GI): Soft to palpation, nontender, no hepatomegaly and no splenom egaly Auscultation: normal bowel sounds Skin General skin exam: no rashes or lesions noted and dry skin Neuro General: oriented to person, oriented to place and oriented to time Cranial nerves: Yes Equal, round and reactive pupils present Speech: No Abnormal speech present Gait exam (Neuro): Normal gait present Motor exam (neuro): no tremor noted Extrem Right upper extremity: full ROM Left upper extremity: full ROM Right lower extremity: full ROM; no edema Left lower extremity: full ROM; no edema Psych Mental Status: mental status grossly normal Speech and movement: Normal speech and movement present Affect: normal affect Attitude: cooperative Thought process: Normal thought process present Coding Level of Care Code Est Pt Level 4 (04785) Diagnoses Primary hypertension I10 Hypertension type: primary hypertension Mixed hyperlipidemia E78.2 Hyperlipidemia type: mixed hyperlipidemia Class 2 obesity E66.812 Systolic murmur R01.1 Additional Codes ROS-7 Assessment Billing - ROS-7 Assessment Tool: ROS-7 Assessment 98007 ([id number]) PHQ-9 - 05723 - PHQ-9 Billing: Yes ([id number]) Assessment & Plan Assessment & Plan (1) Hypertension: Code(s): I10 - Essential (primary) hypertension Category: Medical Qualifiers: Hypertension type: primary hypertension Qualified Code(s): I10 - Essential (primary) hypertension Plan: Patient's blood pressure slightly elevated today in office. 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 Patient will work on dietary modifications and reducing sodium in her diet.. Will hold off on changing her blood pressure med regime and advised to continue monitoring. Goal blood pressures is to be below 140/90 (2) Hyperlipidemia: Code(s): E78.5 - Hyperlipidemia, unspecified Category: Medical Qualifiers: Hyperlipidemia type: mixed hyperlipidemia Qualified Code(s): E78.2 - Mixed hyperlipidemia Plan: Patient's most recent lipid panel showing better control over total cholesterol and LDL. She continues on lovastatin with good effect. Goal LDL to remain below 130 (3) Class 2 obesity: Code(s): E66.812 - Obesity, class 2 Category: Medical Plan: Patient does understand her BMI is over 35 work on being more physically active and adapting to better eating habits to reduce her weight (4) Systolic murmur: Code(s): R01.1 - Cardiac murmur, unspecified Category: Medical Plan: Have noted a grade 1 -2 systolic murmur on physical exam today, has not had this evaluated years ago prior to her knee surgery. Likely has a aortic stenosis though does have elevated blood pressure readings. Will send for echocardiogram to evaluate her ejection fraction in the extent of her valvular dysfunction. Orders: Orders CA echo transthoracic complete Today R01.1 - Cardiac murmur, unspecified
[2024-08-21 10:24] VITALS: BP 152/70; PULSE 96; O2SAT 99; BMI 35.3
--- OUTSIDE RECORDS SUMMARY | 2024-08-21 10:54 | XMS_ITS | Patient Health Record ---
Author Organization [facility] Address [address] [place] [address] Care Team Providers Care Photo Mask Processor Name Role Phone Nadir Pan MD Primary Care Provider Tj Molina Unavailable [phone] Reason For Referral No Information Medications Medication SIG (Take, Route, Frequency, Duration) Notes Start Date End Date Status hydroCHLOROthiazide 25 MG Oral for 30 Active amLODIPine Besylate 5 MG Oral for 30 Active Lovastatin 40 MG Oral for 30 A ctive Apcmrbkkzi-BVEC-Xjhxcmfa 50-325-40 MG take 1 capsule by mouth every 6 hours if needed for TENSION HEADACHE MUST LAST 30 DAYS Oral for 30 Active Social History Tobacco Use: Social History Observation Description Date Details (start date - stop date) Never Smoker NA - NA Tobacco Use/Smoking Question Answer Notes Patient is a nonsmoker Alcohol Screen Question Answer Notes Did you have a drink contain ing alcohol in the past year? Yes How often did you have a dri nk containing alcohol in the past year? 2 to 4 times a month (2 points) How many drinks did you have on a typical day when you were drinking in the past year? 1 or 2 drinks (0 point) How often did you have 6 or more drinks on one occasion in the past year? Never (0 point) Points 2 Interpretation Negative Section Notes: Nonsmoker; no sig alcohol Problems Problem Type SNOMED Code ICD Code Onset Dates Problem Status W/U Status Risk Notes Problem [id number] Encounter for screening for malignant neoplasm of colon (Z12.11) Active confirmed Problem 817024291714139 Preprocedural examination (Z01.818) Active confirmed Problem 520965376 Long-term use of high-risk medication (Z79.899) Active confirmed Plan Of Treatment Future Test Test Name Order Date COLONOSCOPY 07/11/2017 Insurance Providers Payer Name Payer Address Payer Phone Subscriber Number Group Number Insured Name Patient Relationship to Insured Coverage Start Date Coverage End Date [facility] [address] [address] [place] [address] [id number] YONATHAN MOTT Self - patient is the insured Medicare of [place] [employer] [address] [place] [address] [id number] YONATHAN MOTT Self - patient is the insured Medical (General) History Medical History History ICD Code Urinary incontinence Denies SD,DM,CVA,Lung disease,renal dise ase Neg. screening colonoscopy i n 07/2006 excpet for a hyperplastic polyp, diverticulosis, internal hemorrhoids Neg. EGD in 07/2006 except for HH Hyperlipidemia HTN Negative sleep study approx 5 yrs ago Surgical History Surgery Date(Month/Year) [facility] for cervical cancer Hip replacement left 2009 Right knee replaced 2010 Appendectomy Tonsillectomy
== END 2024-08-21 10:50 | disposition home or self-care (01) ==
LOC: HO.HMCH 10:19
PROVIDERS: PCP Internal Medicine; Visit Provider Physician Assistant
DX: I10 Essential (primary) hypertension (principal); E66.812 Obesity, class 2; Z68.35 Body mass index [BMI] 35.0-35.9, adult; E78.2 Mixed hyperlipidemia; R01.1 Cardiac murmur, unspecified

== ENCOUNTER → 2024-08-21 10:18 | Outpatient (BNVA) | payer MEDICARE, SELFPAY | PROVIDERS: PCP Internal Medicine; Visit Provider Physician Assistant | DX: I10 Essential (primary) hypertension (principal); E78.2 Mixed hyperlipidemia; R01.1 Cardiac murmur, unspecified; E66.812 Obesity, class 2; Z68.35 Body mass index [BMI] 35.0-35.9, adult; Z71.3 Dietary counseling and surveillance | CPT/HCPCS: 96127; 99212 ==

== ENCOUNTER → 2024-10-14 07:57 | Outpatient (REF) | payer MEDICARE, SELFPAY ==
--- OUTSIDE RECORDS SUMMARY | 2024-02-16 04:45 | XMS_ITS ---
Author Organization [facility] Address [address] [place] [address] Care Team Providers Care Jump Iron Machine Presser Name Role Phone Franko Todd Primary Care Provider Unavailab Romeo Nunez Unavailable [phone] Encounters Encounter Location Date Provider Diagnosis [address] [address] 02/16/2024 Romeo Laird Plan Of Treatment Next Appt Details Provider Name:Romeo Laird , 11/15/2024 09:00:00 AM, [address] [place] [address], [phone], Progress Notes * Sherry PIERCE EDOB:1945 (78 yo F)Acc No.[id number]:02/16/2024 Progress Note Patient: Sherry JEWELL Provider: No Laird DPM :1945 A ge:78 Y S ex:Female Date:02/16/2024 Address:[address] [place] Pcp:Franko Todd Subjective: * Chief Complaints: * [...] Date: 04/18/2023 Generated for Mariangel Adams on: 0 10/14/2024 07:59 AM EDT
--- OUTSIDE RECORDS SUMMARY | 2024-10-14 07:59 | XMS_ITS | Patient Health Record ---
Author Organization [facility] Address [address] [place] [address] Care Team Providers Care Environmental Field Technician Name Role Phone Nadir Pan MD Primary Care Provider Tj Molina Unavailable [phone] Reason For Referral No Information Medications Medication SIG (Take, Route, Frequency, Duration) Notes Start Date End Date Status hydroCHLOROthiazide 25 MG Oral for 30 Active amLODIPine Besylate 5 MG Oral for 30 Active Lovastatin 40 MG Oral for 30 A ctive Oisupfmdxb-OUPF-Bbxeaoto 50-325-40 MG take 1 capsule by mouth [...] Problem Status W/U Status Risk Notes Problem 301844701 Encounter for screening for malignant neoplasm of colon (Z12.11) Active confirmed Problem 440350089060191 Preprocedural examination (Z01.818) Active confirmed Problem 078674814 Long-term use of high-risk medication (Z79.899) Active confirmed Plan Of Treatment Future Test Test Name Order Date COLONOSCOPY 07/11/2017 Insurance Providers Payer Name Payer Address Payer Phone Subscriber Number Group Number Insured Name Patient Relationship to Insured Coverage Start Date Coverage End Date [facility] [address] [address] [place] [address] [id number] YONATHAN MOTT Self - patient is the insured [place] [employer] [address] [place] [phone] [id number] YONATHAN MOTT Self - patient is the insured Medical (General) History Medical History History ICD Code Urinary incontinence Denies [place],DM,CVA,Lung disease,renal dise ase Neg. screening colonoscopy i n 07/2006 excpet for a hyperplastic polyp, diverticulosis, internal hemorrhoids Neg. EGD in 07/2006 except for HH Hyperlipidemia HTN Negative sleep study approx 5 yrs ago Surgical History Surgery Date(Month/Year) [facility] for cervical cancer Hip replacement left 2009 Right knee replaced 2010 Appendectomy Tonsillectomy
--- NOTE | 2024-10-14 08:00 | CA_ITS ---
Transthoracic Echocardiogram Patient (Last, First, Middle): Sherry Pierce E Gender: F Date of : 1945 Age: 78 Procedure Date: 10/14/2024 Procedure Type: Transthoracic Echocardiogram Location: OP Height: 170.18 cm Weight: 102.06 kg BSA: 2.13 m2 Heart Rate: 79 bpm BP: 150 / 70 mmHg Electronic Warfare Officer: SB Referring MD: Franko Todd PA-C Symptoms: R01.1 - Cardiac murmur, unspecified Study Quality: Adequate ECG Rhythm: Sinus Conclusions: - The left ventricular systolic function is hyperdynamic. The visually estimated ejection fraction is >70%. - There is moderate calcification of the aortic valve. There is mild aortic valve stenosis. Findings Procedure Information Contrast agent, definity, is being given per protocol without apparent complications. The quality of the study was technically difficult. The study quality is limited by lung artifact. Left Ventricle Normal left ventricular cavity size. There is severely increased left ventricular wall thickness. The left ventricular systolic function is hyperdynamic. The visually estimated ejection fraction is >70%. Evidence suggests grade I (mild) diastolic dysfunction. There is severe septal asymmetric hypertrophy. Right Ventricle Normal right ventricular cavity size and systolic function. Atria Both atria are normal in size. Aortic Valve There is moderate calcification of the aortic valve. There is mild aortic valve stenosis. There is trace (trivial) aortic valve regurgitation. Mitral Valve There is mild mitral annular calcification. There is no mitral valve regurgitation. There is no mitral valve stenosis. Pulmonic Valve The pulmonic valve is likely normal. Tricuspid Valve There is trace tricuspid valve regurgitation. There is no evidence of pulmonary hypertension. Great Vessels The asc aorta is normal in size. Venous The inferior vena cava is normal in size and collapses greater than 50% with inspiration. Pericardium/Pleural Prominent epicardial adipose tissue noted. There is no evidence of pericardial effusion. Prior Study Comparison No prior study available for comparison. Measurements 2D Linear Measurements IVSd: 1.91 0.6-0.9/0.6-1.0 cm LVIDd: 3.05 3.9-5.3/4.2-5.9 cm LVIDd Index: 1.43 2.4-3.2/2.2-3.1 cm/m2 LVIDs: 2.18 2.0-3.6 cm LVPWd: 1.43 0.7-1.1 cm LA Diam: 3.60 2.7-3.8/3.0-4.0 cm LAIDs Index: 1.69 1.5-2.3 cm/m2 LV Mass: 241.85 67-162/88-224 g LV Mass Index: 113.54 43-95/49-115 g/m2 LVOT Diam: 1.90 3.0+(-)1.3 cm 2D Systolic Function EF 4C: 77.20 >55% EF 2C: 79.90 >55% EF BiP: 78.70 >55% Mitral Valve MV Pk E: 0.41 MV PK A: 1.10 MV Decel Time: 215.00 E/A: 0.40 E'Lateral: 2.28 E'Medial: 1.96 E/E' Med: 20.80 E/E' Lat: 17.90 Aortic Valve AoV Pk Juan: 2.47 AoV Mn Juan: 1.83 AoV VTI: 0.52 AoV Pk Grad: 24.00 Aov Mn Grad: 15.00 ANTON Cont.VTI: 1.56 LVOT LVOT Pk Juan: 1.29 LVOT Mn Juan: 0.87 LVOT VTI: 0.29 LVOT Pk Grad: 7.00 LVOT Mn Grad: 4.00 LVOT Diam: 1.90 LVOT Area: 2.84 Diastolic Function MV Pk E: 0.41 MV Pk A: 1.10 E/A: 0.40 E'Medial: 1.96 E/E' Med: 20.80 E' Laterial: 2.28 E/E' Lat: 17.90 Right Ventricle TAPSE (mm): 18.50 TVS' Juan: 13.90 Tricuspid Valve RA Press: 3.00 Great Vessels Aorta Sinus of Valsalva: 2.80 2.0-3.5 cm Ao Asc: 3.40 2.1-3.4 cm Pulmonary Veins Pulm Vein S/D 1.30 Pulmonary Valve PV Pk Juan: 0.99 Peak PV Grad: 4.00 Updated in Other Vendor System with Status of Final Sebastian Brown MD electronically signed on 10/14/2024 10:47:20 AM with status of Final
== END ==
LOC: HO.CARD 07:57
PROVIDERS: PCP Physician Assistant; Visit Provider Physician Assistant
DX: R01.1 Cardiac murmur, unspecified (principal)
CPT/HCPCS: 93306; Q9957

== ENCOUNTER → 2024-10-14 08:00 | Outpatient (BNV) | payer MEDICARE, SELFPAY | PROVIDERS: PCP Physician Assistant; Visit Provider Internal Medicine | DX: I51.89 Other ill-defined heart diseases (principal); I35.8 Other nonrheumatic aortic valve disorders | CPT/HCPCS: 93306 ==

== ENCOUNTER 2024-10-23 08:28 | Outpatient (AMB) | payer MEDICARE, SELFPAY ==
--- OUTSIDE RECORDS SUMMARY | 2024-02-01 10:15 | XMS_ITS ---
Author [facility] Address [address] [place] [address] Care Team Providers Care Antique Collector Name Role Phone Franko Todd Primary Care Provider Unavailab Romeo Nunez Unavailable [phone] Thelma Oakley Unavailable [phone] Encounters Encounter Location Date Provider Diagnosis [address] [address] 02/01/2024 Thelma Oakley Plan Of Treatment Next Appt Details Provider Name:Romeo Laird , 11/15/2024 09:00:00 AM, [address] [place] [address], [phone], Progress Notes * Sherry MOTT EDOB:1945 (78 yo F)Acc No.[id number]:02/01/2024 Progress Note Patient: Sherry JEWELL Provider: Zhanna Oakley DPM :1945 A ge:78 Y S ex:Female Date:02/01/2024 Address:[facility] [address] [place] Pcp:Franko Todd Subjective: * Chief Complaints: * * Medical History: Objective: * Vitals: Assessment: Plan: * Treatment: * Images: * The named appointment provid er may or may not be the originator of this progress note, and it is not deemed complete until electronically signed by the appointment provider. Sign off status: Pending * Provider: Zhanna Oakley DPM Date: 1 04/03/2023 Generated for Mariangel pa/Marni/Dillon on: 0 10/23/2024 08:54 AM EDT
--- OUTSIDE RECORDS SUMMARY | 2024-02-16 04:45 | XMS_ITS ---
Author [facility] Address [address] [place] [address] Care Team Providers Care Metallographic Technician Name Role Phone Franko Todd Primary Care Provider Unavailab Romeo Nunez Unavailable [phone] Encounters Encounter Location Date Provider Diagnosis [address] [address] 02/16/2024 Romeo Laird Plan Of Treatment Next Appt Details Provider Name:Romeo Laird , 11/15/2024 09:00:00 AM, [address] [place] [address], [phone], Progress Notes * Sherry PIERCE EDOB:1945 (78 yo F)Acc No.[id number]:02/16/2024 Progress Note Patient: Sherry JEWELL Provider: No Laird DPM :1945 A ge:78 Y S ex:Female Date:02/16/2024 Address:[address] [place] Pcp:Franko Todd Subjective: * Chief Complaints: * * Medical History: Objective: * Vitals: Assessment: Plan: * Treatment: * Images: * The named appointment provid er may or may not be the originator of this progress note, and it is not deemed complete until electronically signed by the appointment provider. Sign off status: Pending * Provider: No Laird DPM Date: 04/18/2023 Generated for Mariangel Adams on: 10/23/2024 08:54 AM EDT
--- NOTE | 2024-10-23 08:31 | A.OFFVIS_ITS ---
Vital Signs 10/23/24 08:31 Height 5 ft 7 in Intake Visit Reasons: 6m follow up Allergies amlodipine Adverse Reaction (Intermediate, Verified 10/23/24 08:35) Dizziness Medication List - Last Reconciled 10/23/24 by Tootie Mcgill CNP acetaminophen-codeine 300-30 mg 1 - 2 tabs PO Q8H PRN ciclopirox 0.77% 1 appl topical ONCE diltiazem HCl CD 180 mg PO DAILY hydrochlorothiazide 25 mg PO DAILY 90 days hydroxyzine pamoate 25 mg PO QID PRN lovastatin 40 mg PO DAILY HPI Comments Details: She was doing okay. Migraines were happening about 1x/week. She was using?Tyl #3?1-2 tablets as needed with good relief.?Does not have regular sleep schedule and has some trouble falling asleep. 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 Stress of younger gearsd-by-ppj with dementia in residential since 09/2022. She has migraines without aura triggered by lack of sleep and stress. [facility] Medical History (Updated 10/23/24 @ 08:34 by Tootie Mcgill CNP) Migraine without aura Insomnia Rash Hyperlipidemia Obesity Hypertension Annual physical exam Surgical History History of right hip replacement History of arthroplasty of left hip History of rectal polypectomy History of arthroplasty of right knee History of hysterectomy History of appendectomy Family History Father No problems noted. Mother No problems noted. Social History Housing: House Alcohol intake: never Patient Tobacco Use Status: Never used Tobacco e-Cigarette/Vaping Use: Never Used Second Hand Smoke Exposure: No service: No Current occupational status: retired Cognitive needs: No Hearing needs: No Vision needs: No Review of Systems Const Denies chills, Denies daytime sleepiness, Reports difficulty sleeping, Denies fatigue, Denies fever(s), Denies frequent falls, Reports headache(s), Denies increased appetite, Denies poor appetite, Denies snoring, Denies weakness, Den ies weight gain and Denies weight loss Eyes Denies loss of vision ENT Denies vertigo, Denies dizziness, Reports headache(s) and Denies neck pain Card Denies chest pain at rest, Denies chest pain with activity, Denies syncope, Denies leg edema, Denies palpitations, Denies dyspnea and Denies dyspnea on exertion Resp Denies cough, Denies dyspnea, Denies dyspnea on exertion and Denies snoring GI Denies abdominal pain, Denies constipation, Denies heartburn, Denies diarrhea an d Denies nausea Denies urinary frequency, Denies urinary incontinence and Denies urinary urgency Musc Denies abnormal gait, Denies back pain, Denies myalgias, Denies arthralgias, Denies neck pain, Denies numbness and Denies tingling Neuro Denies abnormal gait, Denies vertigo, Denies dizziness, Denies syncope, Denies frequent falls, Reports headache(s), Denies lack of coordination, Denies loss of vision, Denies memory loss, Denies numbness, Denies Other visual disturbances, Denies restless legs, Denies seizure-like activity, Denies tingling, Denies paresthesias, Denies tremor(s) and Denies weakness Psych Denies anxiety, Denies depression, Denies auditory hallucinations, Denies memory loss and Denies visual hallucinations Endo Denies fatigue and Denies palpitations Physical Exam Const Other: General Appearance:? normal, in no acute distress. Heart:? S1, S2 normal, no murmurs. Lungs:? clear anteriorly and posteriorly. Musculoskeletal:? normal. Extremities:? no edema. Psych:? alert, oriented, cognitive function intact, cooperative with exam. Neuro Other: Abnormal Neurological Findings:?none.? Mental Status: alert and oriented X 3. Normal attention, orientation, memory, and affect. Cranial Nerves: Pupils are equal, round, and reactive to light. External ocular muscles are intact. Visual philip are full, no ptosis. Face is symmetrical, no facial weakness or droop. Facial sensations are normal. Tongue protrudes in midline. Palate elevates symmetrically. Shoulder shrugging is normal Motor Examination: Normal muscle tone, bulk and strength. No atrophy or fasciculations. No drift of the extended upper extremities. DTR 2+. Plantars are flexor. Sensory Exam: Normal light touch, temperature, pinprick, vibration, and joint- position sensations. Rhomberg sign is absent. Coordination: No ataxia. No titubation. Dcnrrk-wx-egrt, txxm-pjcy-kkpx test, and rapid alternating movements were normal. Gait Exam: Within normal limits. Cerebellar Signs: Twcgjm-it-eppm and wafx-wm-pumy is normal. No dysdiadochokinesia. Extrapyramidal System: No tremor, rigidity with normal facial expressions. No bradykinesia. No bradyphrenia. Normal arm swing and posture. No propulsion or retropulsion. Speech: Normal. No dysphasia or dysarthria. Assessment & Plan Assessment & Plan (1) Migraine without aura: Code(s): G43.009 - Migraine without aura, not intractable, without status migrainosus Category: Medical Qualifiers: Status migrainosus presence: without status migrainosus Intractability: not intractable Qualified Code(s): G43.009 - Migraine without aura, not intractable, without status migrainosus Plan: Continue Tylenol with Codeine #3 300-30mg 1-2 tablets as needed q8h for headache #30 for 30 days. Medications: Changed From acetaminophen-codeine 300-30 mg 1 - 2 tabs PO Q8H PRN To acetaminophen-codeine 300-30 mg 1 - 2 tabs PO Q8H PRN 30 tabs 2RF headache 30 days Coding Level of Care Code Est Pt Level 4 (42031) Diagnoses Migraine without aura and without status migrainosus, not intractable G43.009 Status migrainosus presence: without status migrainosus Intractability: not intractable
--- OUTSIDE RECORDS SUMMARY | 2024-10-23 08:55 | XMS_ITS | Patient Health Record ---
Author Organization [facility] Address [address] [place] [address] Care Team Providers Care Sales Compensation Analyst Name Role Phone Nadir Pan MD Primary Care Provider Tj Molina Unavailable [phone] Reason For Referral No Information Medications Medication SIG (Take, Route, Frequency, Duration) Notes Start Date End Date Status hydroCHLOROthiazide 25 MG Oral for 30 Active amLODIPine Besylate 5 MG Oral for 30 Active Lovastatin 40 MG Oral for 30 A ctive Bkjrluvzzc-KHSZ-Xntaopai 50-325-40 MG take 1 capsule by mouth [...] Problem Status W/U Status Risk Notes Problem 544691088 Encounter for screening for malignant neoplasm of colon (Z12.11) Active confirmed Problem [id number] Preprocedural examination (Z01.818) Active confirmed Problem [id number] Long-term use of high-risk medication (Z79.899) Active confirmed Plan Of Treatment Future Test Test Name Order Date COLONOSCOPY 07/11/2017 Insurance Providers Payer Name Payer Address Payer Phone Subscriber Number Group Number Insured Name Patient Relationship to Insured Coverage Start Date Coverage End Date [facility] [address] [address] [place] [address] [id number] YONATHAN MOTT Self - patient is the insured Medicare of [place] [employer] [address] [place] [address] [id number] YONATHAN MOTT Self - patient is the insured Medical (General) History Medical History History ICD Code Urinary incontinence Denies NV,DM,CVA,Lung disease,renal dise ase Neg. screening colonoscopy i n 07/2006 excpet for a hyperplastic polyp, diverticulosis, internal hemorrhoids Neg. EGD in 07/2006 except for HH Hyperlipidemia HTN Negative sleep study approx 5 yrs ago Surgical History Surgery Date(Month/Year) [facility] for cervical cancer Hip replacement left 2009 Right knee replaced 2010 Appendectomy Tonsillectomy
--- OUTSIDE RECORDS SUMMARY | 2024-10-23 08:55 | XMS_ITS | Patient Health Record ---
Author Organization [facility] Mary giselle Yvan Address [address] [place] [address] Care Team Providers Care Visual Presentation Manager Name Role Phone Franok Todd Primary Care Provider Unavailab Romeo Nunez Unavailable [phone] Thelma Oakley Unavailable [phone] Allergies Allergen (clinical drug ingredient) Drug/Non Drug Allergy documented on EMR Reaction Allergy Type Onset Date Status Blueberry Flavor hives Drug Allergy Active Reason For Referral No Information Medications Medication SIG (Take, Route, Frequency, Duration) Notes Start Date End Date Status traMADol HCl Not-Robert ing Ammonium Lactate 12 % 1 application Externally Twice a day; Duration: 30 days Not-Taking zzzCompression Stockings 20-30mm Hg . . .; Duration: . Not-Takin g Ciclopirox Olamine 0.77 % 1 application to affected area Externally Twice a day to effected areas on feet; Duration: 30 days 08/13/2024 Active Allopurinol 300 MG as directed Orally PRN Not-Taking amLODIPine Besylate 5 MG 1 tablet Orally Once a day Not-Taking Hydrocortisone 2.5 % as directed Externally Twice a day; Duration: 30 days Not-Taking ZyrTEC Allergy Not-T aking Butalbital-Acetaminophen Not-Taking Eszopiclone 2 MG Orally Not -Taking Acetaminophen-Codeine 300-30 MG 1 tablet as needed Orally every 6 hrs PRN Active Diltiazem HCl CD Act anabel Flonase PRN Active hydroCHLOROthiazide 25 MG 1 tablet Orall y Once a day Active hydrOXYzine Pamoate 25 MG as directed Orally PRN Active Lovastatin 40 MG 1 tablet with a meal Orally Once a day Active Immunizations Vaccine Route Administration Date Status Comme nts Influenza Unknown 11/26/2021 Administered Influenza Unknown 11/21/2023 Administered COVID-19 Moderna Vaccine Unknown 11/26/2021 Administered 1st 04/26/20 2nd 05/19/20 3rd 01/11/21 Social History Tobacco Use: Social History Observation [...] Problem Status W/U Status Risk Notes Problem Bilateral atherosclerosis of arteries of lower limbs (disorder) ([id number] ) Atherosclerosis of [place] artery of both lower extremities, with unspecified presence of clinical manifestation (I70.203) Active confirmed Vital Signs Blood pressure diastolic 65 mm Hg 08/13/2024 Height 5ft 7in in 08/13/2024 Blood pressure systolic 128 mm Hg 08/13/2024 Weight 230 lbs 08/13/2024 BMI 36.02 kg/m2 08/13/2024 Procedures Procedure Date Ordered Date Performed Result Body Sit e 39536-YIKMLBS NAIL, 6 OR MORE 11/14/2023 N/A 49273-Albjwfow Plate 11/14/2023 N/A 27008-Qogjadsi Plate Each Additional 11/14/2023 N/A 85635-JAVL SKIN LESIONS, OVER 4 11/14/2023 N/A 01771-QGYUNNQ NAIL, 6 OR MORE 02/02/2024 N/A 09163-Deyywshf Plate 02/02/2024 N/A 86160-Liyzkkkm Plate Each Additional 02/02/2024 N/A 76570-SKJM SKIN LESIONS, OVER 4 02/02/2024 N/A 19246-OADIAEV NAIL, 6 OR MORE 05/14/2024 N/A 99336-IIUM SKIN LESIONS, OVER 4 05/14/2024 N/A 32870-TINMDVR NAIL, 6 OR MORE 08/13/2024 N/A 86530-Fnevsysg Plate 08/13/2024 N/A 92384-Xanzaatn Plate Each Additional 08/13/2024 N/A 35608-LIZI SKIN LESIONS, OVER 4 08/13/2024 N/A Encounters Encounter Location Date Provider Diagnosis [address] [address] 11/14/2023 Romeo Laird Atherosclerosis of [place] artery of both lower extremities, with unspecified presence of clinical manifestation I70.203 ; Tinea unguium B35.1 ; Pain in right toe(s) M79.674 ; Pain in left toe(s) M79.675 ; Ingrown nail L60.0 and Tinea pedis of both feet B35.[address] [address] 02/02/2024 Romeo Laird Atherosclerosis of [place] artery of both lower extremities, with unspecified presence of clinical manifestation I70.203 ; Tinea unguium B35.1 ; Pain in right toe(s) M79.674 ; Pain in left toe(s) M79.675 and Ingrown nail L60.[address] [address] 05/14/2024 Romeo Laird Atherosclerosis of [place] artery of both lower extremities, with unspecified presence of clinical manifestation I70.203 ; Tinea unguium B35.1 ; Pain in right toe(s) M79.674 and Pain in left toe(s) M79.[address] [address] 08/13/2024 Romeo Laird Atherosclerosis of [place] artery of both lower extremities, with unspecified presence of clinical manifestation I70.203 ; Tinea unguium B35.1 ; Pain in right toe(s) M79.674 ; Pain in left toe(s) M79.675 ; Ingrown nail L60.0 and Tinea pedis of both feet B35.[address] [address] 01/30/2024 Romeo Laird Assessments Encounter Date Diagnosis (ICD Code) Assessment Notes Treatment Notes Treatment Clinical Notes Section Notes 11/14/2023 Tinea unguium (ICD-10 - B35.1) 11/14/2023 Atherosclerosis of [place] artery of both lower extremities, with unspecified presence of clinical manifestation (ICD-10 - I70.203) 02/02/2024 Tinea unguium (ICD-10 - B35.1) 02/02/2024 Atherosclerosis of [place] artery of both lower extremities, with unspecified presence of clinical manifestation (ICD-10 - I70.203) 05/14/2024 Tinea unguium (ICD-10 - B35.1) 05/14/2024 Atherosclerosis of [place] artery of both lower extremities, with unspecified presence of clinical manifestation (ICD-10 - I70.203) 08/13/2024 Tinea unguium (ICD-10 - B35.1) 08/13/2024 Atherosclerosis of [place] artery of both lower extremities, with unspecified presence of clinical manifestation (ICD-10 - I70.203) 08/13/2024 Pain in right toe(s) (ICD-10 - M79.674) 05/14/2024 Pain in right toe(s) (ICD-10 - M79.674) 02/02/2024 Pain in right toe(s) (ICD-10 - M79.674) 11/14/2023 Pain in right toe(s) (ICD-10 - M79.674) 11/14/2023 Pain in left toe(s) (ICD-10 - M79.675) 02/02/2024 Pain in left toe(s) (ICD-10 - M79.675) 05/14/2024 Pain in left toe(s) (ICD-10 - M79.675) 08/13/2024 Pain in left toe(s) (ICD-10 - M79.675) 08/13/2024 Ingrown nail (ICD-10 - L60.0) 02/02/2024 Ingrown nail (ICD-10 - L60.0) 11/14/2023 Ingrown nail (ICD-10 - L60.0) 11/14/2023 Tinea pedis of both feet (ICD-10 - B35.3) 08/13/2024 Tinea pedis of both feet (ICD-10 - B35.3) Plan Of Treatment Pending Test Test Name Order Date 54959-QUGKRAO NAIL, 6 OR MORE 05/08/2015 49298-KRPKOBD NAIL, 6 OR MORE 08/14/2015 49873-PJTOLFV NAIL, 6 OR MORE 11/13/2015 09245-EJZOTTG NAIL, 6 OR MORE 02/05/2016 36787-BEWBDNG NAIL, 6 OR MORE 04/29/2016 82189-EQNAHJC NAIL, 6 OR MORE 07/29/2016 96366-JLSRCKV NAIL, 6 OR MORE 10/28/2016 37357-CORPAFT NAIL, 6 OR MORE 01/27/2017 97097-QDIMSID NAIL, 6 OR MORE 05/05/2017 23860-MOOVAMQ NAIL, 6 OR MORE 07/07/2017 63735-HDKQDXV NAIL, 6 OR MORE 09/26/2017 53078-ZYTZTIX NAIL, 6 OR MORE 12/19/2017 36598-YNADTSE NAIL, 6 OR MORE 03/30/2018 65671-SEZHJAF NAIL, 6 OR MORE 06/26/2018 64621-QUZOVAZ NAIL, 6 OR MORE 09/11/2018 19640-PZUTRMD NAIL, 6 OR MORE 11/30/2018 54026-LGSHXTR NAIL, 6 OR MORE 02/26/2019 51447-VGMROGT NAIL, 6 OR MORE 04/30/2019 61680-QMFUEJE NAIL, 6 OR MORE 08/02/2019 98748-VMZMTSM NAIL, 6 OR MORE 10/11/2019 27935-OAHEDAO NAIL, 6 OR MORE 12/24/2019 81885-PBFTKFL NAIL, 6 OR MORE 03/17/2020 59502-BRRCAYY NAIL, 6 OR MORE 06/02/2020 78707-CIUQNSW NAIL, 6 OR MORE 08/11/2020 51725-FEVXCLJ NAIL, 6 OR MORE 11/10/2020 19526-MEYBBZI NAIL, 6 OR MORE 01/22/2021 63673-WEUUNVS NAIL, 6 OR MORE 04/06/2021 54927-NZGAYTL NAIL, 6 OR MORE 06/08/2021 29531-WBRTUJG NAIL, 6 OR MORE 08/20/2021 84589-YMAHOLV NAIL, 6 OR MORE 11/09/2021 45508-WBYWRKU NAIL, 6 OR MORE 01/25/2022 86239-KCOXKWP NAIL, 6 OR MORE 04/12/2022 06665-DIOGIBS NAIL, 6 OR MORE 06/24/2022 52718-IQYEEFM NAIL, 6 OR MORE 09/02/2022 27928-XNLXISC NAIL, 6 OR MORE 11/15/2022 36995-KRTHZRX NAIL, 6 OR MORE 01/31/2023 29095-BJGGGVN NAIL, 6 OR MORE 04/18/2023 92915-ZINDTSO NAIL, 6 OR MORE 06/23/2023 83165-TCWIWXA NAIL, 6 OR MORE 09/01/2023 27837-CAAWVVS NAIL, 6 OR MORE 11/14/2023 52610-NPCSKON NAIL, 6 OR MORE 02/02/2024 36503-ISBKQCP NAIL, 6 OR MORE 05/14/2024 60106-UTKUBPZ NAIL, 6 OR MORE 08/13/2024 61147-Dviu Destruction, -14 04/06/2021 63566-Tgpx Destruction, -14 06/08/2021 01254-Lkqa Destruction, -14 06/23/2023 96322-Kiwf Destruction, -14 04/18/2023 08055-Pilw Destruction, -14 01/31/2023 00541-Hnbv Destruction, -14 11/15/2022 49898-Ihve Destruction, -14 09/02/2022 78054-Wpja Destruction, -14 06/24/2022 84746-Dryc Destruction, -14 04/12/2022 42428-Fweg Destruction, -14 01/25/2022 07206-Qlys Destruction, -14 11/09/2021 13457-Atts Destruction, -14 08/20/2021 28202-Wbvq Destruction, -14 11/10/2020 66001-Nrzb Destruction, -14 01/22/2021 10675-Awfv Destruction, -14 06/02/2020 67094-Hbse Destruction, -14 08/11/2020 43949-Ruxz Destruction, -14 03/17/2020 86610-Udax Destruction, -14 10/11/2019 10661-Jbpr Destruction, -14 12/24/2019 87991-Awmo Destruction, 03-0504/30/2019 38327-Cizf Destruction, 03-0508/02/2019 46229-Ohkf Destruction, 03-0511/30/2018 96073-Myxy Destruction, 03-0502/26/2019 20771-Ltee Destruction, 03-0506/26/2018 84005-Zslo Destruction, 03-0509/11/2018 02675-Jhet Destruction, 03-0503/30/2018 45484-Wsiv Destruction, 03-0512/19/2017 18187-Qmmq Destruction, 03-0509/26/2017 55472-Znxf Destruction, 03-0507/07/2017 95222-Bgnr Destruction, 03-0501/27/2017 99826-Doro Destruction, 03-0505/05/2017 82596-Ovel Destruction, 03-0510/28/2016 37718-Anwc Destruction, 03-0507/29/2016 76458-Pwfbwdgq Plate 10/28/2016 75876-Qvdpygay Plate 01/27/2017 51164-Jvtmyowq Plate 04/29/2016 33099-Xyswasop Plate 07/29/2016 70266-Orbbsgza Plate 02/05/2016 71065-Juwxtmig Plate 07/07/2017 75903-Rejliosy Plate 09/26/2017 26218-Sojeugkj Plate 12/19/2017 93132-Rpzfyewm Plate 03/30/2018 93264-Lmlgczoe Plate 06/26/2018 29448-Bobdmbxx Plate 09/11/2018 09116-Peusjyfi Plate 11/30/2018 19110-Vvioyqws Plate 02/26/2019 93878-Sbkzcvpg Plate 10/11/2019 19582-Pbuqfmqt Plate 08/02/2019 48123-Hslkkepn Plate 04/30/2019 85538-Gqcfgrog Plate 12/24/2019 50767-Ssjdkciz Plate 03/17/2020 22573-Ptovuwqx Plate 11/10/2020 52992-Igsdtrvf Plate 08/11/2020 76545-Rpoddyov Plate 06/02/2020 37660-Hnndslcx Plate 01/22/2021 77311-Ybwjdcht Plate 06/08/2021 33053-Ztyewjda Plate 04/06/2021 80022-Qslbavga Plate 08/20/2021 36020-Rwkqbtxw Plate 11/09/2021 99115-Bzavfjsr Plate 01/25/2022 66191-Ggxailce Plate 04/12/2022 24877-Zfvwxqbw Plate 06/24/2022 70312-Zuogpwqu Plate 09/02/2022 60515-Sasjuysb Plate 11/15/2022 51342-Bbczxmal Plate 01/31/2023 68250-Lmrvwnda Plate 04/18/2023 02280-Yrvlzyjl Plate 06/23/2023 66797-Vnvzmefc Plate 11/14/2023 48507-Hemkehsk Plate 09/01/2023 34543-Abqftfxl Plate 02/02/2024 51361-Iysdcltw Plate 08/13/2024 46530-Sesowuwa Plate Each Additional 50228-Ydgcyvcm Plate Each Additional 89626-Mewrgoaa Plate Each Additional 01/2024 64295-Hqapqcof Plate Each Additional 02017-Mbmgmkzi Plate Each Additional 04/2023 61395-Icxwyvca Plate Each Additional 12300-Kfoyzqth Plate Each Additional 01/2023 78198-Mwawxpoh Plate Each Additional 49352-Qmorpmxs Plate Each Additional 13091-Qyyxgcav Plate Each Additional 06/2022 15490-Vcnvmhwe Plate Each Additional 84735-Xwowratd Plate Each Additional 07/2021 95463-Lbvjiszg Plate Each Additional 89109-Rvdtmyhh Plate Each Additional 02/2021 97617-Lxsvbtoc Plate Each Additional 24496-Wvbefelo Plate Each Additional 54042-Pxxzymgk Plate Each Additional 04/2020 57285-Ndpvtafl Plate Each Additional 81563-Wvgdihvr Plate Each Additional 28262-Sfvykkcy Plate Each Additional 02103-Parikzpc Plate Each Additional 04052-Bvotwafj Plate Each Additional 04/2019 65110-Dcxlsuro Plate Each Additional 11/2019 01706-Yvwumekq Plate Each Additional 01/2020 68352-Nwrsjlzi Plate Each Additional 06226-Dkaicnho Plate Each Additional 08/2019 48495-Jwehkzaw Plate Each Additional 12/2018 81097-Eltcitxe Plate Each Additional 29256-Npcuhuwk Plate Each Additional 08/2018 58964-Tvgcttbo Plate Each Additional 09/2018 21733-Qhdpeivy Plate Each Additional 08876-Nyfsljqq Plate Each Additional 08/2017 32073-Ozaihziy Plate Each Additional 23272-Ydypphtj Plate Each Additional 09/2016 23206-Nigfmgqf Plate Each Additional 09/2016 10174-MHKO SKIN LESIONS, OVER 4 11/14/19 29863-AUJA SKIN LESIONS, OVER 4 09/01/19 00066-PUGQ SKIN LESIONS, OVER 4 02/02/20 20280-ITSG SKIN LESIONS, OVER 4 05/15/19 79398-BOXN SKIN LESIONS, OVER 4 08/14/19 Next Appt Details Provider Name:Romeo Pipe Laird , 11/15/2024 09:00:00 AM, [address] [place], [address], Insurance Providers Payer Name Payer Address Payer Phone Subscriber Number Group Number Insured Name Patient Relationship to Insured Coverage Start Date Coverage End Date [employer] Medicare Adv-[id number] [address] [address] [place] [address] [id number] Sherry Pierce Self - patient is the insured Medical (General) History Medical History History ICD Code Arthritis Headaches Migraines High blood pressure Measles Mumps Chicken pox Cholesterol Surgical History Surgery Date(Month/Year) appendectomy 1957 skin graft 1960 hysterectomy 1982 left hip replacement 06/2009 right knee replacement 04/2009 colonoscopy R hip replacement 01/03/2022 Hospitalization History Reason Date(Month/Year) PCP/[facility] - Fainted in store d ue to dehydration hit head test done all clear 07/2021
== END 2024-10-23 08:47 | disposition home or self-care (01) ==
LOC: HO.HSM 08:29
PROVIDERS: PCP Physician Assistant; Referring Provider Internal Medicine; Visit Provider Registered Nurse
DX: G43.009 Migraine without aura, not intractable, without status migrainosus (principal)
CPT/HCPCS: 99214

== ENCOUNTER → 2024-10-23 08:28 | Outpatient (BNVA) | payer MEDICARE, SELFPAY | PROVIDERS: PCP Physician Assistant; Referring Provider Internal Medicine; Visit Provider Registered Nurse | DX: G43.009 Migraine without aura, not intractable, without status migrainosus (principal); F51.02 Adjustment insomnia; G47.9 Sleep disorder, unspecified | CPT/HCPCS: 99212 ==

== ENCOUNTER 2024-11-27 10:16 | Outpatient (AMB) | payer MEDICARE, SELFPAY ==
--- NOTE | 2024-11-27 10:21 | MHC.PC.OV ---
Vital Signs 11/27/24 10:23 Height 5 ft 7 in Weight 223 lb 4 oz BMI 35.0 BP 130/68 Blood Pressure Location Lt brachial Position Sitting Pulse 94 Pulse Source Pulse Oximeter Temp 97.3 F Temp Source Temporal Artery Scan Pulse Oximetry (%) 97 Oxygen Delivery Method Room Air Intake Visit Reasons: 3 months Intake Note: Patient is here to follow up on HTN, HLD. 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 Required: No Relocation Coordinator: Not Required per policy Accompanied by: Self / Same As Patient Allergies amlodipine Adverse Reaction (Intermediate, Verified 11/27/24 10:49) Dizziness Medication List - Last Reconciled 11/27/24 by Franko Todd PA-C acetaminophen-codeine 300-30 mg 1 - 2 tabs PO Q8H PRN 30 days ciclopirox 0.77% 1 appl topical ONCE diltiazem HCl CD 180 mg PO DAILY hydrochlorothiazide 25 mg PO DAILY 90 days hydroxyzine pamoate 25 mg PO QID PRN lovastatin 40 mg PO DAILY Tobacco use date assessed: 11/27/24 Fall risk assessment: No Falls in past year Last assessed Fall Risk: 11/27/24 Dental Screening Dental Screen Date: 04/11/24 HPI 3 months HPI Details Patient is a 78-year-old female here today for a follow-up visit . Patient has a past medical history significant for hyperlipidemia, hypertension, class 2 obesity. .. Hypertension: Patient's blood pressure today in office elevated, she stays pretty consistent with the use of her diltiazem and hydrochlorothiazide. She is not regularly monitoring her blood pressure She usually reports her blood pressures are 130 systolic. She otherwise denies any chest pain, dizziness, headache or shortness of breath. .. Systolic murmur: Have noted a systolic murmur today's physical exam, she is aware of this as this was noted prior to her knee surgery in 2022. Patient has no overt signs of Congestive heart failure.. Recent echocardiogram done in September of 2024 showing-->The left ventricular systolic function is hyperdynamic. The visually estimated ejection fraction is >70%.- There is moderate calcification of the aortic valve. There is mild aortic valve stenosis. .. Hyperlipidemia: Continues on lovastatin most recent lipid panel showing much better control over total cholesterol and LDL. Laboratory Tests 04/11/24 08:06 RBC 4.84 [facility] Medical History (Updated 11/27/24 @ 10:57 by Franko Todd PA-C) Migraine without aura Insomnia Rash Hyperlipidemia Obesity Hypertension Annual physical exam Surgical History History of right hip replacement History of arthroplasty of left hip History of rectal polypectomy History of arthroplasty of right knee History of hysterectomy History of appendectomy Family History Father No problems noted. Mother No problems noted. Social History Housing: House Alcohol intake: never Patient Tobacco Use Status: Never used Tobacco e-Cigarette/Vaping Use: Never Used Second Hand Smoke Exposure: No service: No Current occupational status: retired Cognitive needs: No Hearing needs: No Vision needs: Yes (Glasses) Questionnaire Thrive Questionnaire Date Thrive assessed: 08/14/24 I am a: Patient What is your living situation today?: I have a steady place to live Within the past 12 months, did the food you bought not last and you didn't have the money to get more?: Never true Within the past 12 months, did you worry whether your food would run out before you got money to buy more?: Never true Do you have trouble paying for medicines?: No Do you have trouble getting transportation to medical appointments?: No Do you have trouble paying your heating and electricity bill?: No Do you have trouble taking care of your child, family member or friend?: No Do you have trouble with day-to-day activities such as bathing, preparing meals, shopping, managing finances, etc.?: No Are you currently unemployed and looking for a job?: No Are you interested in more education?: No Please select the resources that you would like help with: None Currently or been in a relationship where the following occur: No concerns reported THRIVE Score: 0 ROS-7 AMB Questionnaire ROS-7 Date ROS - 7 assessed: 08/21/24 Source: Developed by Drs. Tj Arias, Gabriella Fan, Ronni Santana and colleagues, with an educational ana from [employer]. Review of Systems Const Denies headache(s) Eyes Denies loss of vision ENT Denies vertigo, Denies dizziness, Denies headache(s) and Denies sore throat Card Denies chest pain, Denies leg edema and Denies lightheadedness Resp Denies cough, Denies hemoptysis and Denies wheezing GI Denies abdominal pain, Denies melena, Denies constipation, Denies diarrhea and Denies vomiting Denies urinary frequency, Denies dysuria and Denies urinary urgency Musc Denies arthralgias, Denies joint swelling, Denies numbness and Denies tingling Neuro Denies Abnormal speech present, Denies behavioral changes, Denies vertigo, Denies dizziness, Denies headache(s), Denies loss of vision, Denies memory loss, Denies numbness and Denies tingling Psych Denies anxiety, Denies behavioral changes, Denies depression, Denies memory loss and Denies panic attacks Pedro/Lymph Denies easy bleeding and Denies easy bruising Aller/Immun Denies wheezing Physical exam (Primary Care) Vital Signs: Last Vital Signs Temp 97.3 F 11/27/24 10:23 Pulse 94 11/27/24 10:23 BP 130/68 11/27/24 10:23 Pulse Ox 97 11/27/24 10:23 Oxygen Delivery Method Room Air 11/27/24 10:23 BMI result Body Mass Index 35.0 BMI Assessment/Plan discussion: High BMI High, discussed plan: lifestyle, weight reduction, dietary and physical activity Tobacco/Smoking Status: Tobacco use Status Tobacco use date assessed 11/27/24 11/27/24 10:23 Patient Tobacco Use Status Never used Tobacco 11/27/24 10:21 e-Cigarette/Vaping Use Never Used 11/27/24 10:21 Thrive Assessment: Date of Thrive Assessment Date Thrive assessed 08/14/24 11/27/24 10:21 Currently or been in a relationship where the following occur: No concerns reported Const General: healthy appearing, no acute distress, alert and awake Nutritional Appearance: well nourished Orientation/consciousness: oriented to person, oriented to place and oriented to time HENMT Ears: TM's normal bilaterally General nose exam: Normal nasal mucous membranes and turbinates present Eyes Conjunctivae: conjunctivae normal Sclerae: sclerae normal Pupils: Equal, round and reactive pupils present Neck Neck: Yes no lymphadenopathy and Yes no JVD Thyroid: Thyroid normal Carotids: no bruits Resp Effort & Inspection: normal respiratory effort and not tachypneic Auscultation: no crackles, no rales, no rhonchi and no wheezes Cardio Rate: regular rate Rhythm: regular rhythm Heart sounds: no murmurs and normal S1 and S2 GI Palpation (GI): Soft to palpation, nontender, no hepatomegaly and no splenomegaly Auscultation: normal bowel sounds Skin General skin exam: no rashes or lesions noted and dry skin Neuro General: oriented to person, oriented to place and oriented to time Cranial nerves: Yes Equal, round and reactive pupils present Speech: No Abnormal speech present Gait exam (Neuro): Normal gait present Motor exam (neuro): no tremor noted Extrem Right upper extremity: full ROM Left upper extremity: full ROM Right lower extremity: full ROM; no edema Left lower extremity: full ROM; no edema Psych Mental Status: mental status grossly normal Speech and movement: Normal speech and movement present Affect: normal affect Attitude: cooperative Thought process: Normal thought process present Coding Level of Care Code Est Pt Level 4 (78567) Diagnoses Primary hypertension I10 Hypertension type: primary hypertension Mixed hyperlipidemia E78.2 Hyperlipidemia type: mixed hyperlipidemia Class 2 obesity E66.812 Aortic valve calcification I35.9 Assessment & Plan Assessment & Plan (1) Hypertension: Code(s): I10 - Essential (primary) hypertension Category: Medical Qualifiers: Hypertension type: primary hypertension Qualified Code(s): I10 - Essential (primary) hypertension Plan: Patient's blood pressure acceptable today in office. She continues on hydrochlorothiazide and diltiazem with good effect.. 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 Patient will work on dietary modifications and reducing sodium in her diet.. Goal blood pressures is to be below 140/90 (2) Hyperlipidemia: Code(s): E78.5 - Hyperlipidemia, unspecified Category: Medical Qualifiers: Hyperlipidemia type: mixed hyperlipidemia Qualified Code(s): E78.2 - Mixed hyperlipidemia Plan: Patient's most recent lipid panel showing better control over total cholesterol and LDL. She continues on lovastatin with good effect. Goal LDL to remain below 130 (3) Class 2 obesity: Code(s): E66.812 - Obesity, class 2 Category: Medical Plan: Patient does understand her BMI is over 35 work on being more physically active and adapting to better eating habits to reduce her weight (4) Aortic valve calcification: Code(s): I35.9 - Nonrheumatic aortic valve disorder, unspecified Category: Medical Plan: Noted aortic valve calcification and mild aortic valve stenosis with hyperdynamic EF on echocardiogram. There is no overt signs of heart failure here. She is interested in speaking with Cardiology about her echocardiogram findings and if any other evaluation is necessary. Orders: Referrals Cardiology Referral I35.9 - Nonrheumatic aortic valve disorder, unspecified
[2024-11-27 10:23] VITALS: BP 130/68; PULSE 94; TEMP 36.3; O2SAT 97; BMI 35.0
== END 2024-11-27 11:02 | disposition home or self-care (01) ==
LOC: HO.HMCH 10:17
PROVIDERS: PCP Physician Assistant; Visit Provider Physician Assistant
DX: I10 Essential (primary) hypertension (principal); E78.2 Mixed hyperlipidemia; E66.812 Obesity, class 2; Z68.35 Body mass index [BMI] 35.0-35.9, adult; I35.9 Nonrheumatic aortic valve disorder, unspecified

== ENCOUNTER → 2024-11-27 10:16 | Outpatient (BNVA) | payer MEDICARE, SELFPAY | PROVIDERS: PCP Internal Medicine; Visit Provider Physician Assistant | DX: I10 Essential (primary) hypertension (principal); E66.812 Obesity, class 2; R01.1 Cardiac murmur, unspecified; E78.2 Mixed hyperlipidemia; I35.9 Nonrheumatic aortic valve disorder, unspecified | CPT/HCPCS: 99212 ==

== ENCOUNTER → 2024-12-25 07:45 | Outpatient (BNV) | payer MEDICARE, SELFPAY | PROVIDERS: PCP Physician Assistant; Visit Provider Radiology Body Imaging | DX: Z12.31 Encounter for screening mammogram for malignant neoplasm of breast (principal) | CPT/HCPCS: 77063; 77067 ==

== ENCOUNTER 2024-12-25 07:49 | Outpatient (REF) | payer MEDICARE, SELFPAY ==
--- NOTE | ~2024-12-25 | MM_ITS ---
EXAMINATION: MM SCREENING DIGITAL BREAST TOMOSYNTHESIS, BILATERAL CLINICAL INFORMATION: Screening. Asymptomatic. COMPARISON: Comparison made to multiple prior, most recent December 20, 2023, and most remote July 31, 2013. TECHNIQUE: Digital breast tomosynthesis is performed in mediolateral oblique and craniocaudal views along with computer-aided detection (CAD). Synthesized 2D images are generated from the tomosynthesis. FINDINGS: BREAST COMPOSITION: There are scattered areas of fibroglandular density. BILATERAL BREASTS: No significant masses, suspicious calcifications or other abnormalities are seen in either breast. MM/MM tomosynthesis screening BI IMPRESSION: BILATERAL BREASTS: Negative, no mammographic evidence of malignancy. Normal interval follow-up is recommended in 12 months. ASSESSMENT: BI-RADS: Category 1: Negative RECOMMENDATION: Routine annual mammography screening. FOLLOW-UP: 1 year F/U This examination should not preclude the clinical evaluation of a suspicious palpable abnormality. This patient's information was entered into a reminder system with a target due date for their next mammogram. Electronically signed by: Romy Fraser MD 12/28/2024 10:02 PM [facility]
[2024-12-25 09:21] LABS: Hematocrit 41.0 % (37.0-47.0); Hemoglobin 12.9 g/dl (12.0-16.0); Mean Corpuscular HGB Conc 31.5 g/dl (31.0-35.0); Mean Corpuscular Hemoglobin 26.6 pg (27.0-33.0); Mean Corpuscular Volume 84.5 fL (80.0-98.0); NRBC Abs Auto 0.000 X10*3/uL (0.0-0.012); NRBC Pct Auto 0.0 /100WBC (0.0-0.2); Platelet Count 286 X10*3/uL (160-400); Red Blood Count 4.85 X10*6/uL (4.20-5.50); White Blood Count 5.0 X10*3/uL (4.8-10.8)
[2024-12-25 09:45] LABS: Alanine Aminotransferase 23 U/L (0-31); Albumin Level 4.3 g/dL (3.5-5.0); Alkaline Phosphatase 152 U/L (39-117); Anion Gap 10 (12-20); Aspartate Amino Transferase 33 U/L (5-31); Blood Urea Nitrogen 19 mg/dL (9-16); Calcium 9.3 mg/dL (8.4-10.2); Carbon Dioxide 32 mmol/L (22-29); Chloride 105 mmol/L (96-108); Cholesterol 206 mg/dL (<200); Estimated Glomerular Filt Rate 60; HDL Cholesterol 57 mg/dL (>40); Potassium 3.6 mmol/L (3.3-5.1); Sodium 143 mmol/L (135-145); Total Protein 7.6 g/dL (6.5-8.0); Triglycerides 76 mg/dL (<150)
== END 2024-12-25 07:50 | disposition home or self-care (01) ==
LOC: HO.MAMMO 07:49
PROVIDERS: PCP Physician Assistant; Visit Provider Physician Assistant
DX: Z12.31 Encounter for screening mammogram for malignant neoplasm of breast (principal); I10 Essential (primary) hypertension; E78.5 Hyperlipidemia, unspecified
CPT/HCPCS: 36415; 77063; 77067; 80053; 80061; 85027

== ENCOUNTER → 2025-01-01 10:27 | Outpatient (BNVA) | payer MEDICARE, SELFPAY | PROVIDERS: PCP Physician Assistant; Visit Provider Physician Assistant | DX: Z00.00 Encounter for general adult medical examination without abnormal findings (principal); I10 Essential (primary) hypertension; E78.2 Mixed hyperlipidemia; E66.09 Other obesity due to excess calories; R21 Rash and other nonspecific skin eruption; N95.9 Unspecified menopausal and perimenopausal disorder; G43.909 Migraine, unspecified, not intractable, without status migrainosus; Z68.34 Body mass index [BMI] 34.0-34.9, adult | CPT/HCPCS: 96127; 99212; 99397 ==

== ENCOUNTER 2025-01-01 11:03 | Outpatient (AMB) | payer MEDICARE, SELFPAY ==
[2025-01-01 11:04] VITALS: BP 148/92; PULSE 75; TEMP 36.2; O2SAT 94; BMI 34.8
--- NOTE | 2025-01-01 11:04 | A.OFFPC_ITS ---
Vital Signs 01/01/25 11:04 Height 5 ft 7 in Weight 222 lb BMI 34.8 BP 148/92 H Blood Pressure Location Lt brachial Position Sitting Pulse 75 Pulse Source Pulse Oximeter Temp 97.1 F Temp Source Temporal Artery Scan Pulse Oximetry (%) 94 Oxygen Delivery Method Room Air Intake Visit Reasons: Physical Allergies amlodipine Adverse Reaction (Intermediate, Verified 01/01/25 10:36) Dizziness Medication List - Last Reconciled 01/01/25 by Robert Trinh MD acetaminophen-codeine 300-30 mg 1 - 2 tabs PO Q8H PRN 30 days ciclopirox 0.77% 1 appl topical ONCE diltiazem HCl CD 180 mg PO DAILY hydrochlorothiazide 25 mg PO DAILY 90 days lovastatin 40 mg PO DAILY Tobacco use date assessed: 01/01/25 Fall risk assessment: No Falls in past year Last assessed Fall Risk: 01/01/25 Dental Screening Dental Screen Date: 01/01/25 Did you have a dental visit in the last 12 months?: Yes Did you have a dental problem in the last 6 months where you did not have access to dental care?: No Was dental information given to patient?: Patient has dentist HPI HPI Comments History of Present Illness Details The patient is a 79-year-old female with PMH of migraine, HLD, legs fungal infection, HTN, eczema presenting for an annual physical examination. For migraines she uses Tylenol with codeine approximately two to three times per month, though she used it more frequently last month. Her blood pressure today was 148/92 mmHg, which is elevated compared to a prior reading of 130/68 mmHg. She monitors her blood pressure at home, with usual readings around 128-132 mmHg. She takes diltiazem 180 mg daily and hydrochlorothiazide for hypertension. Her hypertension medication was changed years ago after she lost weight and her blood pressure became too low. For hyperlipidemia, the patient takes lovastatin 40 mg, but recent lab work indicated her cholesterol is still slightly high. Recent labs also showed a slightly elevated AST of 33. The patient has a history of food allergies, primarily to berries, which cause an itchy rash. She uses hydroxyzine as needed for these reactions, about three times a month. She also reports a persistent fungal infection with skin discoloration on her foot, which developed after a hip replacement, for which she uses a cream. Past medical history is significant for gout, which has been quiescent for a while, and bilateral hip replacements. An echocardiogram in September revealed mild aortic valve calcification and mild aortic stenosis. She has a cardiology follow-up scheduled for April and denies any associated chest pain, shortness of breath, lightheadedness, or dizziness. Regarding health maintenance, she is up-to-date on her flu, pneumonia, RSV, and COVID-19 vaccinations and plans to receive the shingles vaccine after . A mammogram on December 25 was normal. Her last tetanus vaccine was a few years ago, but records are not available. [facility], [facility] Medical History Migraine without aura Insomnia Rash Hyperlipidemia Obesity Hypertension Annual physical exam Surgical History History of right hip replacement History of arthroplasty of left hip History of rectal polypectomy History of arthroplasty of right knee History of hysterectomy History of appendectomy Family History Father No problems noted. Mother No problems noted. Social History Housing: House Alcohol intake: never Patient Tobacco Use Status: Never used Tobacco e-Cigarette/Vaping Use: Never Used Second Hand Smoke Exposure: No service: No Current occupational status: retired Cognitive needs: No Hearing needs: No Vision needs: Yes (Glasses) Questionnaire PHQ-9 Over the last 2 weeks, how often have you been bothered by any of the following problems? 1. Little interest or pleasure in doing things: not at all 2. Feeling down, depressed, or hopeless: not at all 3. Trouble falling or staying asleep, or sleeping too much: not at all 4. Feeling tired or having little energy: not at all 5. Poor appetite or overeating: not at all 6. Feeling bad about yourself - or that you are a failure or have let yourself or your family down: not at all 7. Trouble concentrating on things, such as reading the newspaper or watching television: not at all 8. Moving or speaking so slowly that other people could have noticed. Or the opposite - being so fidgety or restless that you have been moving around a lot more than usual: not at all 9. Thoughts that you would be better off or of hurting yourself in some way: not at all Total score: 0 Depression Screening Interpretation: Negative Depression Screening Done: Yes Source: Developed by Drs. Tj Arias, Gabriella Fan, Ronni Santana and colleagues, with an educational ana from [employer]. Thrive Questionnaire Date Thrive assessed: 08/14/24 I am a: Patient What is your living situation today?: I have a steady place to live Within the past 12 months, did the food you bought not last and you didn't have the money to get more?: Never true Within the past 12 months, did you worry whether your food would run out before you got money to buy more?: Never true Do you have trouble paying for medicines?: No Do you have trouble getting transportation to medical appointments?: No Do you have trouble paying your heating and electricity bill?: No Do you have trouble taking care of your child, family member or friend?: No Do you have trouble with day-to-day activities such as bathing, preparing meals, shopping, managing finances, etc.?: No Are you currently unemployed and looking for a job?: No Are you interested in more education?: No Please select the resources that you would like help with: None Currently or been in a relationship where the following occur: No concerns re ported THRIVE Score: 0 AUDIT C Alcohol Use Questionnaire (AUDIT-C) 1. How often do you have a drink containing alcohol?: Monthly or less 2. How many drinks containing alcohol do you have on a typical day when you are drinking?: 1 or 2 3. How often do you have six or more drinks on one occasion?: Never Total Score: 1 ROS-7 AMB Questionnaire ROS-7 Date ROS - 7 assessed: 08/21/24 Feeling nervous, anxious, or on edge: 0 = Not at all Not being able to stop or control worryin = Not at all Worrying too much about different things: 0 = Not at all Trouble relaxin = Not at all Being so restless that it is hard to sit still: 0 = Not at all Becoming easily annoyed or irritable: 0 = Not at all Feeling afraid as if something awful might happen: 0 = Not at all Total ROS-7 score (0-4 normal; 5-9 mild; 10-14 moderate; 15-21 severe): 0 Source: Developed by Drs. Tj Arias, Gabriella Fan, Ronni Santana and colleagues, with an educational ana from [employer]. Review of Systems Const Details: As per HPI. Physical exam (Primary Care) Vital Signs: Last Vital Signs Temp 97.1 F 01/01/25 11:04 Pulse 75 01/01/25 11:04 BP 148/92 H 01/01/25 11:04 Pulse Ox 94 01/01/25 11:04 Oxygen Delivery Method Room Air 01/01/25 11:04 BMI result Body Mass Index 34.8 Tobacco/Smoking Status: Tobacco use Status Tobacco use date assessed 01/01/25 01/01/25 11:10 Patient Tobacco Use Status Never used Tobacco 01/01/25 11:10 e-Cigarette/Vaping Use Never Used 01/01/25 11:10 PHQ-9: PHQ-9 Score PHQ-9: Total score 0 01/01/25 11:10 Depression Screening Interpretation: Negative Thrive Assessment: Date of Thrive Assessment Date Thrive assessed 08/14/24 01/01/25 11:10 Currently or been in a relationship where the following occur: No concerns reported Const Other: Pertinent findings are in BOLD GENERAL APPEARANCE NAD, activity normal for age, well developed/ well nourished, no cyanosis, pallor, or diaphoresis. EYES lids/conjunctiva normal. EARS/NOSE/THROAT Mucous membranes moist, nares normal, lips/teeth normal uvula midline without oral pharyngeal erythema, exudate or swelling TMs normal bilaterally. No lymphangitis/lymphedema. HEAD/NECK normocephalic atraumatic, no facial trauma, neck is supple. RESPIRATORY respiratory effort normal, speaks in full sentences, no tripod position, no accessory muscle use. Lungs clear to auscultation without rhonchi, wheezes, rales CARDIAC Regular rate and rhythm, no edema. ABDOMINAL Soft, ND/NT. No evidence of fluid wave. No pulsatile masses on exam, rebound tenderness, Carvajal sign or pain over Mcburney's point. MUSCLES/EXTREMITIES No abnormal range of motion, no swelling. SKIN Warm, pink and dry. No rashes, dermatoses, petechiae or lesions. Skin discoloration on RLE. NEUROLOGICAL Speech is clear and appropriate. Normal level of consciousness. Gait and coordination are normal. 5/5 strength in all extremities. PSYCH Normal mood and affect. Judgement/competence is appropriate Coding Level of Care Code Est Pt Level 4 (94648) Est Pt Prev Care >65y(86145) Diagnoses Healthcare maintenance Z00.00 Primary hypertension I10 Hypertension type: primary hypertension Mixed hyperlipidemia E78.2 Hyperlipidemia type: mixed hyperlipidemia Class 1 obesity due to excess calories without serious comorbidity with body mass index (BMI) of 34.0 to 34.9 in adult E66.09; Z68.34 Obesity type: due to excess calories Obesity classification: adult class 1 (BMI 30 - 34.9) Body mass index: BMI 34.0-34.9 Serious obesity comorbidity presence: without serious comorbidity Rash R21 Post menopausal problems N95.9 Migraine without status migrainosus, not intractable, unspecified migraine type G43.909 Migraine type: unspecified Status migrainosus presence: without status migrainosus Intractability: not intractable Time Spent (min) 45 Assessment & Plan Assessment & Plan (1) Healthcare maintenance: Code(s): Z00.00 - Encounter for general adult medical examination without abnormal findings Category: Medical Plan: CBC, CMP, Lipid panel, A1C, TSH w T4, vit D. Done recently. Shingles 2 doses when >50 yo. Deferred for now. COVID: two doses. Completed in the past. Tdap: Unknown most recent one. Patient will bring results with her next visit. Pneumococcal: >50 yo. 18-49 with CKD, lung disease, weakened immune system, Heart disease, DM, cochlear implant. Completed. Flu vaccine: Completed this year. Colonoscopy: 45-75. Aged out. AAA: 65 -75. [address]. CT lun - 80. Not indicated. HPV: Aged out. Dexa: Ordered today. Mammogram: Aged out. (2) Hypertension: Code(s): I10 - Essential (primary) hypertension Category: Medical Qualifiers: Hypertension type: primary hypertension Qualified Code(s): I10 - Essential (primary) hypertension Plan: - Blood pressure was elevated in the office at 148/92 mmHg, though the patient reports lower readings at home (around 128-132 mmHg). - She will continue her current regimen of diltiazem 180 mg and hydrochlorothiazide. - It was noted that diltiazem is not a first-line medication for blood pressure management so we can consider switching to Amlodipine in case the patient continues to have elevated BP readings on next visit. (3) Hyperlipidemia: Code(s): E78.5 - Hyperlipidemia, unspecified Category: Medical Qualifiers: Hyperlipidemia type: mixed hyperlipidemia Qualified Code(s): E78.2 - Mixed hyperlipidemia Plan: - The patient's recent cholesterol level remains elevated on lovastatin 40 mg. - Plan to switch to atorvastatin 40 mg, a more potent statin to better manage her lipid levels. - A 90-day supply of atorvastatin 40 mg was prescribed. - The patient was advised she could switch back to lovastatin if she experiences adverse effects from atorvastatin. - Follow-up labs, including a lipid panel, will be checked in approximately 11 months to assess efficacy. (4) Obesity: Code(s): E66.9 - Obesity, unspecified Category: Medical Qualifiers: Obesity type: due to excess calories Obesity classification: adult class 1 (BMI 30 - 34.9) Body mass index: BMI 34.0-34.9 Serious obesity comorbidity presence: without serious comorbidity Qualified Code(s): E66.09 - Other obesity due to excess calories; Z68.34 - Body mass index [BMI] 34.0-34.9, adult Plan: Advised on cutting out sugars and bread. (5) Rash: Code(s): R21 - Rash and other nonspecific skin eruption Category: Medical Plan: - The patient uses hydroxyzine as needed for itchy rashes from food allergies, but her insurance will no longer cover the capsules. - A new prescription for hydroxyzine tablets will be sent to the pharmacy. - Prescribed 30 tablets with 3 refills, as she uses it approximately three times per month. (6) Post menopausal problems: Code(s): N95.9 - Unspecified menopausal and perimenopausal disorder Category: Medical Plan: Dexa scan ordered. (7) Migraine: Code(s): G43.909 - Migraine, unspecified, not intractable, without status migrainosus Category: Medical Qualifiers: Migraine type: unspecified Status migrainosus presence: without status migrainosus Intractability: not intractable Qualified Code(s): G43.909 - Migraine, unspecified, not intractable, without status migrainosus Plan: - The patient effectively manages her migraines with Tylenol and codeine, used as needed. - No changes were made to her migraine management; she will continue the current medication. Plan I reviewed the patient's current health status and medications during this annual physical exam. We discussed her elevated blood pressure reading today, noting that her home readings are typically within a better range, so we will continue her current medication. I explained that her cholesterol remains high despite her current medication and recommended switching from lovastatin to atorvastatin, a stronger option, to improve her numbers. The patient agreed to this change, and I advised her to monitor for side effects. I also addressed an insurance issue by changing her hydroxyzine prescription from capsules to tablets. I recommended and ordered a DEXA scan for osteoporosis screening, explaining that this is a routine preventive measure for her age. We discussed her mild aortic stenosis, and I reinforced the importance of keeping her cardiology appointment for monitoring, clarifying that intervention is typically only needed for symptomatic or severe cases. I placed an order for labs to be done in 11 months, before her next annual visit, to check her lipids on the new therapy and for general health screening. Orders: Orders XR DEXA axial skeleton Today N95.9 - Unspecified menopausal and perimenopausal disorder Hemoglobin A1c 11 Months Z00.00 - Encounter for general adult medical examination without abnormal findings Lipid Panel 11 Months Z00.00 - Encounter for general adult medical examination without abnormal findings Complete Blood Count no Diff 11 Months Z00.00 - Encounter for general adult me dical examination without abnormal findings Comprehensive Met. Panel 11 Months Z00.00 - Encounter for general adult medical examination without abnormal findings TSH reflex Free T4 11 Months Z00.00 - Encounter for general adult medical examination without abnormal findings Vitamin D 25-OH Total 11 Months Z00.00 - Encounter for general adult medical examination without abnormal findings Medications: New atorvastatin (Lipitor) 40 mg PO DAILY 90 tabs 3RF hydroxyzine HCl 25 mg PO QID PRN 30 tabs 3RF itching Discontinued lovastatin Discontinued Reason: More recent result 40 mg PO DAILY 90 tabs 2RF
== END 2025-01-01 11:39 | disposition home or self-care (01) ==
LOC: HO.HMCH 11:03
PROVIDERS: PCP Physician Assistant; Visit Provider Internal Medicine
DX: Z00.00 Encounter for general adult medical examination without abnormal findings (principal); I10 Essential (primary) hypertension; E78.2 Mixed hyperlipidemia; E66.09 Other obesity due to excess calories; Z68.34 Body mass index [BMI] 34.0-34.9, adult; R21 Rash and other nonspecific skin eruption; N95.9 Unspecified menopausal and perimenopausal disorder; G43.909 Migraine, unspecified, not intractable, without status migrainosus